=== PATIENT | female | born 1975 | race Caucasian/White ===

== ENCOUNTER 2022-02-07 09:57 | Outpatient (CLI) | payer BC, SELFPAY ==
--- NOTE | ~2022-02-07 | XR_ITS ---
EXAMINATION: XR hand LT min 3V, XR wrist LT min 3V DATE: 02/07/2022 10:39 INDICATION: Left hand and wrist pain TECHNIQUE: 1. Posteroanterior, ulnar deviation, oblique, and lateral views of the left wrist were obtained. 2. Dorsal palmar, oblique and lateral views of the left hand were obtained. COMPARISON: None. FINDINGS: 3 mm ulnar minus variance. No evident associated osteonecrosis of the lunate. Alignment of the hand a nd wrist is otherwise normal. No fracture identified. Small bone island at the capitate. Mild osteoar thritis at the triscaphe and second-fourth distal interphalangeal joints. No erosions to suggest infl ammatory arthritis. Soft tissues are unremarkable. IMPRESSION: 1. Mild polyarticular osteoarthritis at the first carpometacarpal and second-fourth distal interphala ngeal joints. Reviewed, dictated and finalized at location B. IMPRESSION: 1. Mild polyarticular osteoarthritis at the first carpometacarpal and second-fo urth distal interphalangeal joints.
--- NOTE | ~2022-02-07 | XR_ITS ---
EXAMINATION: XR hip LT min 2V DATE: 02/07/2022 10:39 INDICATION: Left hip pain. TECHNIQUE: 3 views of left hip were obtained. COMPARISON: None. FINDINGS: Bone alignment is normal. No fracture. There is mild left hip osteoarthritis. IMPRESSION: 1. Mild left hip osteoarthritis. Reviewed, dictated and finalized at location A.
--- NOTE | ~2022-02-07 | US_ITS ---
EXAMINATION: US transvaginal DATE: 02/07/2022 12:45 INDICATION: Excessive and frequent menstruation TECHNIQUE: Multiple transabdominal and endovaginal sonographic images of the pelvis were obtained. COMPARISON: None. FINDINGS: The uterus measures 9.1 x 7.3 x 5.3 cm. The endometrial complex measures 15 mm in thickness. There a re a few anechoic nabothian cysts measuring up to 8 mm in maximal diameter at the cervix. Multiple sm all echogenic calcifications, a few with associated shadowing along the at the margins of the endomet rial/endocervical canal at the lower uterine segment/upper cervix. No discrete associated soft tissue mass. The right ovary measures 2.8 x 2.0 x 1.9 cm. The left ovary measures 3.0 x 2.5 x 2.0 cm. 1.5 c m anechoic right ovarian cyst/follicle. Vascular flow identified in both ovaries on color Doppler. Th ere is no free fluid in the pelvis. IMPRESSION: 1. Endometrial complex measures 15 mm in thickness which would BE at the upper limits of normal durin g the secretory phase of the menstrual cycle. Correlate with menstrual cycle. 2. Multiple small dystrophic calcifications at the lower uterine segment/upper cervix which are of in determinate etiology. Correlate for history of prior IUD placement, uterine instrumentation or endome trial ablation. Reviewed, dictated and finalized at location B. IMPRESSION: 1. Endometrial complex measures 15 mm in thickness which would BE at the upper limits of normal during the secretory phase of the menstrual cycle. Correlate w ith menstrual cycle. 2. Multiple small dystrophic calcifications at the lower uterine segment/upper cervix which are of indeterminate etiology. Correlate for history of prior IUD placement, uterine instrumentation or endometrial ablation.
== END 2022-02-07 09:58 | disposition home or self-care (01) ==
PROVIDERS: PCP Physician Assistant; Visit Provider Physician Assistant
DX: N92.0 Excessive and frequent menstruation with regular cycle (principal); M18.12 Unilateral primary osteoarthritis of first carpometacarpal joint, left hand; M19.042 Primary osteoarthritis, left hand; M16.12 Unilateral primary osteoarthritis, left hip; M25.532 Pain in left wrist
CPT/HCPCS: 73110; 73130; 73502; 76830

== ENCOUNTER 2023-03-26 08:29 | Outpatient (CLI) | payer OTHER, SELFPAY ==
--- NOTE | ~2023-03-26 | US_ITS ---
Thyroid ultrasound. Clinical History: Nontoxic thyroid nodule Findings: Real-time sonography of the thyroid gland was performed. The right lobe measures 5.0 x 1.3 x 1.1 cm. The left lobe measures 5.2 x 1.2 x 1.4 cm. The isthmus is 3 mm in AP diameter. No thyroid nodule identified. Impression: No thyroid nodule seen.. Reviewed, dictated and finalized at location . Impression: No thyroid nodule seen..
--- NOTE | ~2023-03-26 | US_ITS ---
EXAMINATION: US pelvic complete w TV DATE: 03/26/2023 10:33 INDICATION: Pelvic and perineal pain Comparison:02/07/2022 TECHNIQUE: Multiple transabdominal and endovaginal sonographic images of the pelvis performed. FINDINGS: The uterus measures 10.3 x 5.4 x 6.2 cm. The endometrial complex measures 7.1 mm. The right ovary measures 2.8 x 2 x 1.9 cm and the left ovary measures 3 x 2.5 x 2 cm. There are smal l follicles in each ovary. Normal doppler signal in both ovaries. There is no free fluid in the pelvis. There are no abnormal masses seen on either side. IMPRESSION: 1. Mildly enlarged uterus. Otherwise, unremarkable pelvic ultrasound. Reviewed, dictated and finalized at location L.
--- NOTE | 2023-03-26 11:00 | NEURO_ITS ---
IMPRESSION: Patient reports a history of numbness and pain in both hands # Early changes suggestive of evolving, mild left Carpal Tunnel Syndrome. # Normal EMG # Clinical correlation recommended. Nerve Conduction Studies Anti Sensory Summary Table Stim Site NR Peak (ms) P-T Amp (?V) Site1 Site2 Delta-P (ms) Dist (cm) Ernesto (m/s) Left Median Anti Sensory (2-3nd Digit) Wrist 3.6 70.1 Wrist 2-3nd Digit 3.6 14.0 39 Wrist 3.7 158.6 Wrist 2-3nd Digit 3.6 14.0 39 Right Median Anti Sensory (2-3nd Digit) Wrist 3.3 27.5 Wrist 2-3nd Digit 3.3 14.0 42 Wrist 3.7 33.1 Wrist 2-3nd Digit 3.3 14.0 42 Left Radial Anti Sensory (Base 1st Digit) Wrist 1.7 100.8 Wrist Base 1st Digit 0.7 0.0 Right Radial Anti Sensory (Base 1st Digit) Wrist 1.7 79.8 Wrist Base 1st Digit 1.7 0.0 Left Ulnar Anti Sensory (5th Digit) Wrist 2.5 37.8 Wrist 5th Digit 2.5 14.0 56 Right Ulnar Anti Sensory (5th Digit) Wrist 2.6 77.5 Wrist 5th Digit 2.6 14.0 54 Motor Summary Table Stim Site NR Onset (ms) O-P Amp (mV) Site1 Site2 Delta-0 (ms) Dist (cm) Ernesto (m/s) Left Median Motor (Abd Poll Brev) Wrist 3.0 8.2 Elbow Wrist 3.6 20.0 56 Elbow 6.6 4.7 Right Median Motor (Abd Poll Brev) Wrist 3.0 10.7 Elbow Wrist 3.7 21.0 57 Elbow 6.7 10.1 Left Ulnar Motor (Abd Dig Minimi) Wrist 2.1 5.6 A Elbow Wrist 5.0 29.0 58 A Elbow 7.1 4.8 B Elbow Wrist 3.1 19.0 61 B Elbow 5.2 5.0 Right Ulnar Motor (Abd Dig Minimi) Wrist 2.1 6.8 A Elbow Wrist 4.7 27.0 57 A Elbow 6.8 5.9 B Elbow Wrist 3.1 18.0 58 B Elbow 5.2 5.9 F Wave Studies NR F-Lat (ms) L-R F-Lat (ms) Left Median (Mrkrs) (Abd Poll Brev) 24.38 1.36 Right Median (Mrkrs) (Abd Poll Brev) 25.73 1.36 Left Ulnar (Mrkrs) (Abd Dig Min) 24.77 0.08 Right Ulnar (Mrkrs) (Abd Dig Min) 24.68 0.08 EMG Side Muscle Nerve Root Ins Act Fibs Amp Dur Recrt Comment Right 1stDorInt Ulnar C8-T1 Nml Nml Nml Nml Nml Right Ext Indicis Radial (Post Int) C7-8 Nml Nml Nml Nml Nml Right Ext Digitorum Radial (Post Int) C7-8 Nml Nml Nml Nml Nml Right BrachioRad Radial C5-6 Nml Nml Nml Nml Nml Right PronatorTeres Median C6-7 Nml Nml Nml Nml Nml Right Abd Poll Brev Median C8-T1 Nml Nml Nml Nml Nml Left 1stDorInt Ulnar C8-T1 Nml Nml Nml Nml Nml Left Ext Indicis Radial (Post Int) C7-8 Nml Nml Nml Nml Nml Left Ext Digitorum Radial (Post Int) C7-8 Nml Nml Nml Nml Nml Left BrachioRad Radial C5-6 Nml Nml Nml Nml Nml Left PronatorTeres Median C6-7 Nml Nml Nml Nml Nml Left Abd Poll Brev Median C8-T1 Nml Nml Nml Nml Nml MTDD
== END 2023-03-26 08:30 | disposition home or self-care (01) ==
LOC: ANHNEURO 08:29
PROVIDERS: PCP Physician Assistant; Visit Provider Orthopaedic Surgery
DX: E04.1 Nontoxic single thyroid nodule (principal); R10.2 Pelvic and perineal pain; R20.0 Anesthesia of skin; N85.2 Hypertrophy of uterus
CPT/HCPCS: 76536; 76830; 76856; 95886; 95911

== ENCOUNTER 2023-05-01 08:39 | Outpatient (CLI) | payer OTHER, SELFPAY ==
--- NOTE | ~2023-05-01 | MR_ITS ---
MRI of the cervical spine Clinical History: C6 radiculopathy Technique: Axial T2-weighted and gradient images, and sagittal T1-weighted, T2-weighted, and STIR jarrell ges were acquired. Findings: No fracture or sublocation seen. There is straightening of the normal cervical lordosis. No suspicious bone marrow signal abnormality seen. At C2-C3, there is no disc bulge or herniation. No spinal canal stenosis, cord compression, or neural foraminal narrowing. At C3-C4, there is disc osteophyte complex. No spinal canal stenosis, cord compression, or neural for aminal narrowing. At C4-C5, there is minimal disc osteophyte complex. No spinal canal stenosis, cord compression, or ne ural foraminal narrowing. At C5-C6, there is disc osteophyte complex with minimal flattening the ventral cord. Bilateral neural foramina are preserved. At C6-C7, there is disc osteophyte complex with mild canal stenosis and flattening the ventral cord. Mild left neural foraminal narrowing. No abnormal signal seen in the spinal cord. Paravertebral soft tissues are unremarkable. Impression: Disc osteophyte complexes at C5-C6 and C6-C7, with mild flattening the ventral cord at these levels, most severe at C6-C7. Mild left neural foraminal narrowing at C6-C7. Reviewed, dictated and finalized at [facility]. Impression: Disc osteophyte complexes at C5-C6 and C6-C7, with mild flattening the ventral cord at these levels, most severe at C6-C7. Mild left neural foraminal narrowing at C6-C7.
[2023-05-01 09:27] LABS: Basophils Absolute Auto 0.1 K/mm3 (0.0-0.1); Basophils Percent Auto 1.2 % (0.2-1.2); Eosinophils Absolute Auto 0.1 K/mm3 (0-0.3); Eosinophils Percent Auto 2.7 % (0-4.4); Hematocrit 39.4 % (37.0-47.0); Hemoglobin 13.1 g/dL (12.0-15.0); Immature Granulocyte Absolute 0.01 K/mm3 (0.00-0.031); Immature Granulocyte Percent A 0.2 % (0-0.5); Lymphocytes Absolute Auto 1.86 K/mm3 (0.9-3.2); Lymphocytes Percent Auto 35.7 % (18.3-44.2); Mean Corpuscular HGB Conc 33.2 g/dl (32-36); Mean Corpuscular Hemoglobin 31.3 pg (26-34); Mean Corpuscular Volume 94.3 fl (80-100); Mean Platelet Volume 9.5 fl (7.4-10.4); Monocytes Absolute Auto 0.5 K/mm3 (0.1-0.6); Neutrophils Absolute Auto 2.7 K/mm3 (1.3-6.7); Neutrophils Percent Auto 51.2 % (45.5-73.1); Platelet Count Result 318 k/mm3 (150-375); Red Blood Count 4.18 M/mm3 (4.2-5.4); Red Cell Distribution Width 12.3 % (11.5-14.5); White Blood Count 5.2 K/mm3 (4.5-10.0)
[2023-05-01 09:44] LABS: CRP 0.5 mg/dL (<1.0)
[2023-05-01 10:08] LABS: Rheumatoid Factor < 12.0 IU/ML (<12)
[2023-05-01 11:02] LABS: Erythrocyte Sedimentation Rate 23 mm/hr (0-20)
[2023-05-04 21:45] LABS: Anti Cyclic Citrullinated Pept <16 Units (<20)
== END 2023-05-01 08:40 | disposition home or self-care (01) ==
LOC: ANHIMG 08:40
PROVIDERS: PCP Physician Assistant; Visit Provider Orthopaedic Surgery
DX: M79.641 Pain in right hand (principal); M79.642 Pain in left hand; M48.02 Spinal stenosis, cervical region; M25.78 Osteophyte, vertebrae
CPT/HCPCS: 36415; 72141; 85025; 85652; 86038; 86140; 86200; 86430

== ENCOUNTER 2023-09-21 13:11 | Outpatient (CLI) | payer OTHER, SELFPAY ==
--- NOTE | ~2023-09-21 | MMUS_ITS ---
EXAMINATION: MM diagnostic josiah BI w nadiya, US breast BI complete HISTORY: Left breast lump TECHNIQUE: Bilateral full field ML, MLO and CC and spot left 3-D tomosynthesis images were performed and synthetic 2-D images were generated. CAD analysis was submitted and interpreted. High resolution complete bilateral breast ultrasound examination including all 4 quadrants and subareolar areas was p erformed. COMPARISON: 11/15/2020 bilateral screening mammogram 11/15/2019 diagnostic right mammogram and right breast ultrasound examination 10/21/2019 bilateral screening mammogram Breast parenchymal composition: There is heterogeneously dense breast tissue, which may obscure small masses. FINDINGS: MAMMOGRAPHIC FINDINGS: Approximately 12.7 x 16.2 mm circumscribed opacity with halo is noted in the outer mid left breast, l ikely benign, probably a cyst. Additional masses are difficult to exclude due to the heterogeneously dense stroma of both breasts. B ilateral complete breast ultrasound examination was therefore performed. No architectural distortion, malignant calcification, skin thickening or retraction of either breast is evident. ULTRASOUND: Right breast: 6:00 1 cm from nipple: Circumscribed approximately 4 x 4.8 mm multilocular cystic lesion without inte rnal vascularity or posterior shadowing is noted, likely benign. Six-month follow-up targeted ultraso und imaging at this location is recommended. No suspicious mass or shadowing of the right breast is detected otherwise. Left breast: 3:00 1 cm from nipple: 1.5 cm simple cyst with through transmission posterior enhancement. 3:00 1 cm from nipple: 5 mm simple cyst 6:00 1 cm from nipple: 3.9 x 4.3 mm circumscribed sonolucency without internal vascularity, with thro ugh transmission, consistent with simple cyst 9:00 2 cm from nipple: There is a cluster of multiple cysts, largest approximately 8 mm maximal dimen otto. No suspicious mass or shadowing is detected. IMPRESSION: 1. Probable benign right 6:00 multilocular approximately 4 x 4.8 mm cystic lesion 2. Six-month targeted left breast ultrasound follow-up is recommended BI-RADS category 3, probably benign findings. Reviewed, dictated and finalized at location A. 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 Probable benign right 6:00 multilocular approximately 4 x 4.8 mm cystic lesi on 2. Six-month targeted left breast ultrasound follow-up is recommended BI-RADS category 3, probably benign findings.
== END 2023-09-21 13:12 | disposition home or self-care (01) ==
PROVIDERS: PCP Physician Assistant; Visit Provider Obstetrics & Gynecology
DX: N63.20 Unspecified lump in the left breast, unspecified quadrant (principal); R92.8 Other abnormal and inconclusive findings on diagnostic imaging of breast
CPT/HCPCS: 76641; 77062; 77066; G0279

== ENCOUNTER 2023-10-03 14:00 | Emergency (ER) | payer OTHER, SELFPAY ==
[2023-10-03 14:01] VITALS: BP 106/93; PULSE 136; RESP 16; TEMP 36.6; O2SAT 100
[2023-10-03 14:31] VITALS: BP 98/80; PULSE 109; RESP 15; RESP 18; O2SAT 98; O2SAT 99
--- NOTE | 2023-10-03 14:31 | PC.NURSE ---
Pt reports she has experienced nose bleeds intermitmently for 2 months. Denies history of HTN
[2023-10-03 14:34] LABS: Basophils Absolute Auto 0.1 K/mm3 (0.0-0.1); Basophils Percent Auto 0.8 % (0.2-1.2); Eosinophils Absolute Auto 0.1 K/mm3 (0-0.3); Eosinophils Percent Auto 0.8 % (0-4.4); Hematocrit 36.1 % (37.0-47.0); Hemoglobin 11.5 g/dL (12.0-15.0); Immature Granulocyte Absolute 0.02 K/mm3 (0.00-0.031); Immature Granulocyte Percent A 0.2 % (0-0.5); Lymphocytes Percent Auto 21.2 % (18.3-44.2); Mean Corpuscular HGB Conc 31.9 g/dl (32-36); Mean Corpuscular Hemoglobin 30.7 pg (26-34); Mean Corpuscular Volume 96.5 fl (80-100); Mean Platelet Volume 9.7 fl (7.4-10.4); Monocytes Absolute Auto 0.4 K/mm3 (0.1-0.6); Monocytes Percent Auto 4.7 % (2.6-8.5); Neutrophils Absolute Auto 6.5 K/mm3 (1.3-6.7); Neutrophils Percent Auto 72.3 % (45.5-73.1); Platelet Count Result 396 k/mm3 (150-375); Red Blood Count 3.74 M/mm3 (4.2-5.4); Red Cell Distribution Width 12.4 % (11.5-14.5)
--- NOTE | 2023-10-03 14:37 | ED.EPISTAXIS ---
HPI - Epistaxis General Chief complaint: Epistaxis Stated complaint: nose bleed Time Seen by Provider: 10/03/23 14:36 Source: patient and other (partner/boyfriend) Mode of arrival: ambulatory Limitations: no limitations History of Present Illness HPI Narrative: This is a 48 yo female who presents with epistaxis starting at 0930. He has essentially been constant. Reported initial significant blood loss. Clamp applied at 14:30 approximately. Epistaxis from bilateral nares but left > right. Not on anticoagulation. Never previously saw ENT. No trauma including no digital trauma. She does note it has been somewhat dry. Denies any other mucosal/gingival bleeding though she does have heavy menses with a hysterectomy scheduled for January. History of cleft palate s/p surgical repair. Related Data Home Medications Medication Instructions Recorded Confirmed meloxicam 15 mg tablet 15 mg PO DAILY 02/18/23 venlafaxine 150 mg 150 mg PO DAILY 02/18/23 capsule,extended release 24 hr Allergies Allergy/AdvReac Type Severity Reaction Status Date / Time erythromycin base Allergy Unknown Unknown Verified 09/29/23 09:06 Penicillins Allergy Unknown Unknown Verified 09/29/23 09:06 [facility] Past Medical History Medical History Anxiety Cleft lip and palate numerous surgeries Migraine Miscarriage Osteoporosis Vaginal delivery x2 Surgical History Surgical History H/O breast surgery History of placement of ear tubes History of tubal ligation 1995 Family History Family History Grandparent Diabetes mellitus Hypertension Heart disease Cerebrovascular accident Father Cerebrovascular accident Grandparent Uterine cancer Other Cervical cancer Social History Social History (Updated 09/29/23 @ 09:07 by Shi Moncada CMA) Smoking status: Never smoker Alcohol intake: current Alcohol use details: wine coolers Substance use: never Substance use type: does not use Lack of Transportation: No Lack of Food: Never True Current Housing: I Have Housing Concerned About Future Housing: No Difficulty Paying Gas/Electric Bills: No Difficulty Paying for Meds: No Currently Unemployed: No Education: High School Diploma/GED Difficulty w/ Childcare or Family Care: No Living arrangements: with family Gender identity (if verbalized by the patient): Female Sexual Orientation (if Verbalized by the Patient): Straight or Heterosexual Agree to blood products: Yes Exam Narrative: GENERAL: Well-appearing, well-nourished, and in no acute distress. HEAD: Normocephalic, atraumatic. EYES: Sclera non injected or icteric. ENT: Nares with epistaxis, most significant on the left. No uvula. Posterior oropharynx with clotted blood seen at superior aspect. NECK: Supple. No meningismus. CHEST: Speaking in full sentences. No respiratory distress. HEART: Tachycardic rate and rhythm. ABDOMEN: Soft, , nondistended, EXTREMITIES: Normal range of motion. No edema. SKIN: Warm, dry, no rash. NEURO: No focal deficits. Alert and oriented x3. PSYCH: Normal mood and affect. Course Vital Signs Vital signs: Vital Signs Temperature 97.9 F 10/03/23 14:01 Pulse Rate 136 H 10/03/23 14:01 Respiratory Rate 16 10/03/23 14:01 Blood Pressure 106/93 H 10/03/23 14:01 Pulse Oximetry 100 10/03/23 14:01 Temperature 98.0 F 10/03/23 16:31 Pulse Rate 99 10/03/23 16:31 Respiratory Rate 14 10/03/23 16:31 Blood Pressure 116/82 10/03/23 16:31 Pulse Oximetry 99 10/03/23 16:31 MDM - Epistaxis MDM Narrative Medical decision making narrative: Patient presents with epistaxis since 929. Patient had tried applying pressure. Presented to the ED and clamp applied aprpoximately 1430. Not on anticoagulation. No other mucosal/gingival ble
[2023-10-03 14:44] LABS: INR 1.1; Prothrombin Time 14.5 Seconds (11.1-14.7)
[2023-10-03 14:45] LABS: Partial Thromboplastin Time 26.2 SECONDS (22.3-36.8)
[2023-10-03 14:47] LABS: Alanine Aminotransferase 15 U/L (6-35); Albumin Level 4.2 g/dL (3.5-5.1); Alkaline Phosphatase 70 U/L (38-126); Anion Gap 11 mmol/L (8-16); Aspartate Amino Transferase 21 U/L (14-36); Bilirubin,Total 0.5 mg/dL (0.2-1.3); Blood Urea Nitrogen 18 mg/dL (7-17); Calcium 8.8 mg/dL (8.4-10.2); Carbon Dioxide 24 mmol/L (22-30); Chloride 104 mmol/L (98-107); Estimated CRCL calculation 63 ml/min; Estimated Glomerular Filt Rate > 60; Glucose 143 mg/dL (65-110); Potassium 3.9 mmol/L (3.4-5.0); Sodium 139 mmol/L (137-145)
[2023-10-03 15:01] VITALS: BP 103/77; PULSE 105; RESP 16; TEMP 36.7; O2SAT 98
[2023-10-03] MEDS: OXYMETAZOLINE HCL 0.05% NAS 15 ML BTL (*BKC) 1 SPRAY NASAL (15:42)
[2023-10-03 16:01] VITALS: BP 109/78; PULSE 91; RESP 16; O2SAT 97
[2023-10-03 16:31] VITALS: BP 116/82; PULSE 99; RESP 14; TEMP 36.7; O2SAT 99
--- NOTE | 2023-10-03 17:38 | PC.NURSE ---
Nasal bleeding stopped. Pt states ready to be discharged.
== END 2023-10-03 17:41 | disposition home or self-care (01) ==
PROVIDERS: Emergency Provider Student in an Organized Health Care Education/Training Program; PCP Physician Assistant
DX: R04.0 Epistaxis (principal); M81.0 Age-related osteoporosis without current pathological fracture; F41.9 Anxiety disorder, unspecified
CPT/HCPCS: 30901; 36415; 80053; 85025; 85610; 85730; 99283; A9270

== ENCOUNTER 2024-02-17 08:21 | Outpatient (CLI) | payer OTHER, SELFPAY | END 2024-02-17 08:22 | disposition home or self-care (01) | LOC: ANHSURGERY 08:24 | PROVIDERS: PCP Physician Assistant; Visit Provider Obstetrics & Gynecology | DX: Z01.818 Encounter for other preprocedural examination (principal); N92.0 Excessive and frequent menstruation with regular cycle | CPT/HCPCS: 36415; 86850; 86900; 86901 ==

== ENCOUNTER 2024-02-19 00:10 | Day surgery (SDC) | payer OTHER, SELFPAY ==
[2024-02-11 10:38] VITALS: BMI 25.9
--- NOTE | 2024-02-11 10:44 | PC.NURSE ---
Report to the Outpatient Waiting Room, entrance under the green pavilion located off [facility], at time 6:00 on date 02/19/24. Planned Procedure Time: 7:30. Time changes happen often and if your time is changed the preop area will call you the afternoon before. - You and your visitor will be asked to self-screen and do not enter if you have any COVID symptoms. - A mask is optional within the hospital at this time. Patients may have clear liquids (water, carbonated beverages, clear teas, apple juice) until 3 hours prior to surgery (4:30) with a maximum of 20 ounces. - No food from midnight until time of surgery Take the following medications with a SIP of water the morning of surgery: VENLAFAXINE DO NOT STOP ANY OF YOUR OTHER PRESCRIPTION MEDICATIONS PRIOR TO SURGERY ?EXCEPT THE FOLLOWING Medications to discontinue per physician: N/A Date to take last dose: N/A Please no make-up, nail vietnamese, hairspray, perfume, deodorant, or body powder the day of surgery. No jewelry (including any body piercings) or valuables the day of surgery, leave them at home. Please take a shower or bath the night before, or the morning of, surgery with an antibacterial soap. Wear comfortable, loose fitting clothing. - Jewelry must be removed prior to entering the operating room. Rings and piercings that are not removed may be cut off. - The hospital will not accept responsibility for valuables. - Please leave all valuables, including medications, at home the day of surgery. If you are going home after surgery, a licensed regional company truck driver must drive you home. - NO public transportation without another adult if you receive anesthesia. - We recommend that an adult stay with you for 24 hours following discharge. - We also recommend that you do not drive, make important decision, drink alcoholic beverages, or take any drugs that were not prescribed by your health care provider for at least 24 hours after your discharge time. Follow any additional instructions given to you from your surgeon. If you or anyone in your household have experienced Covid symptoms in the past week, please notify your surgeon or the nurse liaison at the phone number below for possible testing. Telephone instructions given to GREG MILES and asked if any additional questions and then verbalized understanding. Patient advised to call surgeon office or pre surgery nurse liaison [phone] if any additional questions.
--- NOTE | 2024-02-18 14:17 | P.HP_ITS ---
H&P: HPI History of Present Illness Date/Time: 02/18/24 14:17 Chief Complaint: Menorrhagia Narrative: Patient with history of menorrhagia. She states she has had it for a while and she does not want to take any medications. She has been given options of intrauterine device progesterone also endometrial ablation also hormonal options which she declines. She wants definitive treatment with hysterectomy. Pap s mear normal endometrial biopsy showed disordered proliferative endometrium. Pelvic ultrasound showed mildly enlarged uterus about 10 cm no fibroids identified. Review of Systems Review of Systems: All systems reviewed & are unremarkable except as noted in HPI and below Cardiovascular: Cardiovascular: Reports no additional cardiovascular complaints, Denies chest pain and Denies dyspnea Respiratory: Respiratory: Reports no additional respiratory complaints and Denies dyspnea Gastrointestinal: Gastrointestinal: Reports abdominal pain, Denies change in bowel habits, Denies diarrhea, Denies nausea and Denies vomiting Genitourinary: Genitourinary: Reports pelvic pain Musculoskeletal: Musculoskeletal: Reports back pain Integumentary/Breasts: Skin/Breast: Reports system reviewed and no additional complaints, except as docu Neurologic: Reports system reviewed and no additional complaints, except as documented PMF Past Medical History Medical History Anxiety Cleft lip and palate numerous surgeries Migraine Miscarriage Osteoporosis Vaginal delivery x2 Surgical History Surgical History H/O breast surgery History of placement of ear tubes History of tubal ligation 1995 Family History Family History Grandparent Diabetes mellitus Hypertension Heart disease Cerebrovascular accident Father Cerebrovascular accident Grandparent Uterine cancer Other Cervical cancer Social History Social History Social History: Caffeine-none Smoking status: Never smoker Alcohol intake: current Alcohol use details: RARE Substance use: never Substance use type: does not use Lack of Transportation: No Lack of Food: Never True Current Housing: I Have Housing Concerned About Future Housing: No Difficulty Paying Gas/Electric Bills: No Difficulty Paying for Meds: No Currently Unemployed: No Education: High School Diploma/GED Difficulty w/ Childcare or Family Care: No Living arrangements: with family Gender identity (if verbalized by the patient): Female Sexual Orientation (if Verbalized by the Patient): Straight or Heterosexual Spiritual care concerns: No Agree to blood products: Yes Meds Home Medications and Allergies Home Medications Medication Instructions Recorded Confirmed Type venlafaxine 150 mg 150 mg PO DAILY 02/18/23 02/11/24 History capsule,extended release 24 hr oxymetazoline 0.05 % nasal mist 2 spray intranasal Q8-10H PRN 10/03/23 02/11/24 Rx (Afrin (oxymetazoline)) nasal congestion 5 days #15 mL Allergies Allergy/AdvReac Type Severity Reaction Status Date / Time erythromycin base Allergy Unknown Rash Verified 02/11/24 10:37 Penicillins Allergy Unknown Rash Verified 02/11/24 10:37 Exam Const: Orientation/consciousness: oriented to person and oriented to place HENMT: Head: normal to inspection Eyes: General: appearance normal, both eyes and all related structures Resp: Effort & Inspection: normal respiratory effort Auscultation: clear to auscultation bilaterally Cardio: Rate: regular rate Rhythm: regular rhythm GI: Inspection: normal to inspection GI Palp: No Rebound tenderness present Neuro: General: oriented to person and oriented to place Cognition (Neuro): normal cognition Extrem: General: normal to inspection Psych: Appearance: grossly normal and well kempt Assessment and Plan Assessment and plan (1) Menorrhagia: Code(s): N92.0 - Excessive and frequent menstruation with regular cycle Status: Acute Assessment and Plan: Patient desires definitive treatment declines medical options. She has been informed of her options risks benefits of laparoscopy and risks benefits of minimally invasive surgery. She wants to proceed with robotic assisted laparoscopic hysterectomy with bilateral salpingo-oophorectomy.
[2024-02-19] VITALS (11 sets, daily range): BP systolic 92–115; BP diastolic 51–72; PULSE 72–103; RESP 12–18; TEMP 36.1–37.7; O2SAT 93–100
[2024-02-19] MEDS: ACETAMINOPHEN 500 MG TABLET 1000 MG PO (06:30)
[2024-02-19] MEDS: LACTATED RINGERS 1,000 ML 30 ML IV CONT ×2 (06:35→09:34)
--- NOTE | 2024-02-19 07:05 | P.PNAN_ITS ---
Anes - Initial Pre Proc Eval Procedure: Operation Date: 02/19/24 07:30 Proposed Procedures p Robotic Assisted Laparoscopic Total Vaginal Hysterectomy with Bilateral Salpingo-Oophorectomy - Heraclio Noriega MD Date/Time: 02/19/24 07:05 Surgeon: Heraclio Noriega MD Pre Op Diagnosis: menorrhagia Patient Data Age: 49 Gender: F Height: 1.55 m Weight: 62.2 kg Last Vital Signs Temp 98.4 F 02/19/24 06:41 Pulse 72 02/19/24 06:41 Resp 16 02/19/24 06:41 BP 115/60 02/19/24 06:41 Pulse Ox 100 02/19/24 06:41 O2 Del Method Room Air 02/19/24 06:41 Allergies Allergy/AdvReac Type Severity Reaction Status Date / Time erythromycin base Allergy Unknown Swelling Verified 02/19/24 06:16 of Lip/Tongue/Throat Penicillins Allergy Unknown Rash Verified 02/19/24 06:16 Home Medications Medication Instructions Recorded Confirmed Type venlafaxine 150 mg 150 mg PO DAILY 02/18/23 02/19/24 History capsule,extended release 24 hr oxymetazoline 0.05 % nasal mist 2 spray intranasal Q8-10H PRN 10/03/23 02/19/24 Rx (Afrin (oxymetazoline)) nasal congestion 5 days #15 mL Patient hx anesthesia problems: none Family hx anesthesia problems: none Results Review: All pre-operative results and documents have been reviewed as part of the pre- operative evaluation. [facility] Past Medical History Medical History Anxiety Cleft lip and palate numerous surgeries Migraine Miscarriage Osteoporosis Vaginal delivery x2 Surgical History Surgical History H/O breast surgery History of placement of ear tubes History of tubal ligation 1995 Family History Family History Grandparent Diabetes mellitus Hypertension Heart disease Cerebrovascular accident Father Cerebrovascular accident Grandparent Uterine cancer Other Cervical cancer Social History Social History Social History: Caffeine-none Smoking status: Never smoker Alcohol intake: current Alcohol use details: RARE Substance use: never Substance use type: does not use Lack of Transportation: No Lack of Food: Never True Current Housing: I Have Housing Concerned About Future Housing: No Difficulty Paying Gas/Electric Bills: No Difficulty Paying for Meds: No Currently Unemployed: No Education: High School Diploma/GED Difficulty w/ Childcare or Family Care: No Living arrangements: with family Gender identity (if verbalized by the patient): Female Sexual Orientation (if Verbalized by the Patient): Straight or Heterosexual Spiritual care concerns: No Agree to blood products: Yes Anes - Eval Final PreProcedure Day of Procedure 02/19/24 07:05 Patient weight: normal Heart: regular rate and rhythm Lungs: clear to auscultation Airway: Mallampati scale and special considerations (Upper partial, several teeth remaining once removed. ) Neurological: alert and oriented Last oral intake: >/= 8 hours ASA classification: I Emergent: no Anesthetic plan: proceed Anesthesia type and monitoring: general ETT and standard monitoring Results Review: All pre-operative results and documents have been reviewed as part of the pre- operative evaluation. Informed Consent: The patient's anesthetic plan and its attendant risks and benefits were discussed with the patient/family/POA. Questions were solicited and answers provided to the satisfaction of the patient/family/POA.
--- NOTE | 2024-02-19 07:21 | WPDHPUPDATE1 ---
History and Physical Update Update Date/Time: 02/19/24 07:21 History and Physical has been reviewed, including an updated exam of the patient. There are NO changes in the patient's condition. Risks, benefits, and alternatives have been discussed and questions answered. Patient agrees to proceed with procedure.
--- NOTE | 2024-02-19 07:22 | WPDHPUPDATE1 ---
History and Physical Update Update Date/Time: 02/19/24 07:22 History and Physical has been reviewed, including an updated exam of the patient. There are NO changes in the patient's condition. Risks, benefits, and alternatives have been discussed and questions answered. Patient agrees to proceed with procedure.
[2024-02-19] MEDS: KETOROLAC 15 MG/ML VIAL (*BKC) IV PUSH (07:24)
[2024-02-19] MEDS: ceFAZolin 2 GM/D5W 50 ML 2 GM/50 ML BAG IVPB (07:30)
[2024-02-19] MEDS: BUPivacaine HCL 0.5% 10 ML AMP 20 ML INFILTRATE (08:18)
--- NOTE | 2024-02-19 09:10 | PM.OP ---
Procedure Note - Brief Procedure Note - Brief Date of procedure: 02/19/24 menorrhagia Post-op diagnosis: Same Procedure performed: Robotic assisted laparoscopic hysterectomy with bilateral oophorectomy Surgeon: Heraclio Noriega MD Anesthesia: GETA Findings: normal uterus and normal ovaries bilaterally, fallopian tubes absent Estimated blood loss (mL): 50 IV fluids (mL): 1,300 Urine output (mL): 800 Drains: No Packing: No Pathology: Yes (uterus and cervix and right and left ovaries) Complications: No immediate complications Condition: Stable Disposition: PACU
--- NOTE | 2024-02-19 09:28 | P.OP_ITS ---
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 Findings Normal uterus, normal ovaries bilateral Description of Procedure After informed consent was obtained she was taken to the operating room and general endotracheal anesthesia was administered. She was placed in low lithotomy position. An exam under anesthesia was performed. Uterus mildly enlarged retroverted, no adnexal masses palpated. She was and prepped and draped in sterile fashion. Meza catheter placed in bladder. Attention was turned to the vagina speculum was inserted. Single-tooth tenaculum placed on anterior lip of the cervix the uterus sounded to 8 cm. The cervix was dilated to a 8 Briceño dilator. A size 8 uterine manipulator was inserted and secured. A size 3.0 colp cup was secured in the vagina. Then attention was turned to the abdomen with new sterile gloves. .25% marcaine injected subcutaneously. An incision was made horizontal 2 cm above the umbilicus. A Veress needle was inserted into the abdomen confirmation into the abdomen obtained with normal flow of fluid and normal peritoneal pressures. A Pneumoperitoneum of 15 mm per mercury was obtained. The 8 mm robotic port was inserted under laparoscopic visualization. Attention was turned to the left side of the abdomen. A small incision was made approximately 6 cm lateral to the port on the left side of the port. A size 8mm robotic port was inserted under laparoscopic visualization. Attention was turned to the right side of the abdomen and Marcaine was injected also as was on the left side subcutaneously incision was made and an 8 mm robotic port was inserted under laparoscopic visualization. Superior medial to this Marcaine was injected and the human resources office assistant port was inserted under laparoscopic visualization. She was placed in Trendelenburg position. The robotic arms were attached. Attention was turned to the surgery consult. The right round ligament was ligated with the vessel sealer and the anterior leaf of the broad ligament was dissected down to the vesicouterine peritoneum. The vesicouterine peritoneum was dissected.The right side of the bladder was dissected from the lower uterine segment and upper cervix. The right infundibulopelvic ligament was ligated with the vessel sealer. The broad ligament was further ligated from the uterus. The ascending uterine vessels were ligated. The uterine vessels were ligated. Attention was turned to the left round ligament which was ligated and the anterior leaf of the broad ligament was dissected anteriorly. The rest of the vesicouterine peritoneum was dissected off of the uterus. Once the bladder was dissected below the colp cup then the posterior leaf of the broad ligament was further dissected. The infundibulopelvic ligament on the left was ligated. The broad ligament was ligated from the uterus. The ascending uterine vessels were ligated The uterine arteries were ligated. The cardinal ligaments were ligated. This was done on both sides. An incision was made anterior colpotomy incision was made and this was carried around until the cervix was removed from the vagina. The uterus and cervix were removed through the vagina. There was an area of bleeding on the right side this was cauterized hemostasis was noted. The vaginal cuff was closed in a running fashion with 2 sutures of 0 V lock suture. Hemostasis was noted. The pelvis was irrigated. Hemostasis noted. Hemoderm was applied in the pelvis. The patient was taken out of Trendelenburg position. The pneumoperitoneum was released and the ports were removed. The skin incisions were closed in a subcuticular fashion with 4-0 Vicryl.. The patient was extubated in operating room. The sponge count was correct. Patient tolerated procedure well and was taken to recovery in stable condition. Estimated Blood Loss 50 IV Fluids 1,300 Urine Output 800 Drains No Packing No Pathology Yes (Uterus with cervix and right and left ovaries) Complications No immediate complications Condition Stable Disposition PACU [facility] Billing Surgery - Charge Forward: Surgery Billing
--- NOTE | 2024-02-19 10:45 | OBPPTRN ---
Patient transferred to post room #289 via stretcher. Support person present. Oriented to unit, room, information board, rooming in, admission packet and security measures. Patient verbalizes understanding.
[2024-02-19] MEDS: DEXTROSE 5%/0.45% SOD CHL 1,000 ML 125 ML IV CONT (10:56)
[2024-02-19] MEDS: HYDROcodone/acetaminophen (*CRX) 5-325 MG TABLET 1 TAB PO ×2 (11:00→12:31)
--- NOTE | 2024-02-19 12:31 | PM.GYNPNOP ---
[employer] - A/P Assessment and plan (1) Status post hysterectomy: Code(s): Z90.710 - Acquired absence of both cervix and uterus Status: Acute Assessment and Plan: Will adjust pain meds. Discussed surgery with her. Anticipate discharge tomorrow. Postoperative Procedures: Procedures Operation Date: 02/19/24 07:30 Actual Procedure Side Surgeon p Robotic Assisted Laparoscopic Total Vaginal Hysterectomy with Bilateral Oophorectomy Aleshia Noriega MD Time Spent With Patient Time: Total time spent is greater than 50% in coordination of care (as documented) at patient's floor/unit and/or counseling patient: Time with patient: less than 15 minutes [employer]- PN:Subj Post-Op Subjective Date/time seen: 02/19/24 12:31 Interval history: She states pain not controlled. No SOB or CP. Exam GI: Other: GI -incisions intact [employer] - PN: Obj Data Vital Signs Vital Signs: Vital Signs - 24 hr 02/19/24 06:41 02/19/24 09:34 02/19/24 10:00 Temperature 98.4 F 97.1 F L Pulse Rate 72 103 H 85 Respiratory Rate 16 12 14 Blood Pressure 115/60 92/59 L 99/60 L Pulse Oximetry 100 93 98 Oxygen Delivery Room Air Simple Face Mask Simple Face Mask Oxygen Flow Rate 15 15 02/19/24 10:10 02/19/24 10:15 02/19/24 10:30 Temperature 97.0 F L Pulse Rate 82 90 Respiratory Rate 14 16 Blood Pressure 104/65 100/63 Pulse Oximetry 95 95 Oxygen Delivery Room Air Room Air Room Air Oxygen Flow Rate 02/19/24 09:45 02/19/24 10:50 02/19/24 10:50 Temperature 98.1 F Pulse Rate 87 81 Respiratory Rate 14 16 Blood Pressure 111/63 102/59 L Pulse Oximetry 96 96 Oxygen Delivery Simple Face Mask Room Air Oxygen Flow Rate 15 Intake/Output Intake/Output: Intake & Output 02/16/24 02/17/24 02/18/24 02/19/24 23:59 23:59 23:59 23:59 Intake Total 1850 Output Total 1640 Balance 210 Meds/Results Medications: Active Medications Generic Name Dose Route Start Last Admin Trade Name Freq PRN Reason Stop Dose Admin Hydrocodone Bitart/Acetaminophen 1 tab 02/19/24 09:06 02/19/24 11:00 Hydrocodone/Acetaminophen (*Crx) 5-325 Mg Tablet PO 1 tab Q3H PRN Administration Pain Rated 5 or Less Hydrocodone Bitart/Acetaminophen 1 tab 02/19/24 09:06 Hydrocodone/Acetaminophen (*Crx) 10-325 Mg Tablet PO Q3H PRN Pain Rated 6 or Greater Dextrose/Sodium Chloride 1,000 mls @ 125 mls/hr 02/19/24 09:10 02/19/24 10:56 Dextrose 5% Sodium Chloride 0.45% IV CONT 125 mls/hr .Q8H JANUSZ Administration Ibuprofen 600 mg 02/19/24 09:06 Ibuprofen 600 Mg Tablet PO Q6H PRN Cramping Ketorolac Tromethamine 30 mg 02/19/24 09:06 Ketorolac 30 Mg/Ml Vial (*Bkc) IV PUSH 02/24/24 09:05 Q6H PRN Pain Rated 4-6 Morphine Sulfate 4 mg 02/19/24 09:06 Morphine Sulfate (*Crx) 4 Mg/Ml Inj IV PUSH Q4H PRN Severe breakthrough pain Naloxone HCl 0.1 mg 02/19/24 09:06 Naloxone Hcl 0.4 Mg/Ml Vial IV PUSH Q2M PRN Respiratory rate less than 10 Ondansetron HCl 4 mg 02/19/24 09:06 Ondansetron Inj 4 Mg/2 Ml Vial IV PUSH Q6H PRN Nausea And Vomiting Oxymetazoline HCl 2 spray 02/19/24 11:02 Oxymetazoline Hcl 0.05% Dani 15 Ml Btl (*Bkc) NASAL Q8HR PRN Congestion Simethicone 80 mg 02/19/24 12:00 Simethicone 80 Mg Tab.Chew PO TIDWM JANUSZ Venlafaxine HCl 150 mg 02/20/24 09:00 Venlafaxine Hcl Xr 75 Mg Cap.Er.24h PO DAILY JANUSZ
[2024-02-19] MEDS: SIMETHICONE 80 MG TAB.CHEW PO ×2 (12:32→15:51)
--- NOTE | 2024-02-19 12:34 | PM.OBDSVD ---
DS: Admitting Diagnosis Discharge Date 02/20/24 Admitting Diagnosis Menorrhagia DS: Discharge Diagnosis Discharge Diagnosis (1) Menorrhagia: Code(s): N92.0 - Excessive and frequent menstruation with regular cycle Status: Acute OB - DS: Summary Hospital Course Hospital Course: She was admitted for planned robotic hysterectomy with bilateral oophorectomy. She underwent the procedure, no complications. She did well on post op day 1 and was discharged to home on POD1. OB Procedures : None OB Procedures Intrapartum: Other OB Procedures: : None Peripartum Data Procedures: Procedures Operation Date: 02/19/24 07:30 Actual Procedure Side Surgeon p Robotic Assisted Laparoscopic Total Vaginal Hysterectomy with Bilateral Oophorectomy Bilateral Heraclio Noriega MD Time Spent with Patient Time attestation: Total time spent providing and/or coordinating discharge services: Exam Const: General: cooperative Orientation/consciousness: oriented to person, oriented to place and oriented to time HENMT: Face/Nose/Sinus: Normal external nose present Eyes: General: appearance normal, both eyes and all related structures Resp: Effort & Inspection: normal respiratory effort GI: Inspection: normal to inspection Skin: General skin exam: normal color Neuro: General: oriented to person, oriented to place and oriented to time Extrem: General: normal to inspection and no calf tenderness Psych: Appearance: grossly normal Mental Status: mental status grossly normal DS: Data Data Completed and Pending Pending studies at discharge: Pending at discharge 02/19/24 08:41 Surgical [PTH] Routine Discharge Plan Discharge Patient Disposition: Home, Self-Care Patient Instructions: Laparoscopic Hysterectomy (DC) Stand Alone Forms: General Discharge Information Follow-up/Referrals: Heraclio Noriega MD [Physician] - Keep Reg. Scheduled Appt. Discharge Medications: New hydrocodone-acetaminophen 5-325 mg Tablet 1 tablet PO Q3H PRN (Reason: Pain Rated 5 Or Less) Qty: 25 0RF No Action venlafaxine 150 mg capsule,extended release 24hr 150 mg PO DAILY Afrin (oxymetazoline) 0.05 % mist 2 spray intranasal Q8-10H PRN (Reason: nasal congestion) 5 Days Qty: 15 0RF
[2024-02-19] MEDS: KETOROLAC 30 MG/ML VIAL (*BKC) IV PUSH (13:41)
[2024-02-19] MEDS: HYDROcodone/acetaminophen (*CRX) 10-325 MG TABLET 1 TAB PO (15:40)
[2024-02-19] MEDS: MORPHINE SULFATE (*CRX) 4 MG/ML INJ IV PUSH (18:35)
[2024-02-20 00:05] VITALS: BP 113/62; PULSE 89; RESP 18; TEMP 37.1; O2SAT 99
[2024-02-20] MEDS: HYDROcodone/acetaminophen (*CRX) 10-325 MG TABLET 1 TAB PO (00:07)
[2024-02-20] MEDS: IBUPROFEN 600 MG TABLET PO ×2 (00:07→09:10)
[2024-02-20 05:03] VITALS: BP 114/68; PULSE 82; RESP 18; TEMP 36.7; O2SAT 100
[2024-02-20 06:40] VITALS: BP 88/52; PULSE 64; RESP 18; TEMP 37.2
[2024-02-20] MEDS: SIMETHICONE 80 MG TAB.CHEW PO (09:10)
[2024-02-20] MEDS: VENLAFAXINE HCL XR 75 MG CAP.ER.24H 150 MG PO (09:10)
== END 2024-02-20 10:20 | disposition home or self-care (01) ==
LOC: ANHSURGERY 05:56 → ANHOB2 12:40
PROVIDERS: PCP Physician Assistant; Visit Provider Obstetrics & Gynecology
PROC: (CPT 58552; principal; 2024-02-19 07:30)
DX: N92.0 Excessive and frequent menstruation with regular cycle (principal); N72 Inflammatory disease of cervix uteri; N88.8 Other specified noninflammatory disorders of cervix uteri; N80.03 Adenomyosis of the uterus; N83.11 Corpus luteum cyst of right ovary; F41.9 Anxiety disorder, unspecified
CPT/HCPCS: 58552; S2900; 88307; 99199; A9270; J0690; J1100; J1170; J1596; J1885; J2250; J2270; J2371; J2405; J2704; J3010; J7030; J7120

== ENCOUNTER 2024-08-11 10:24 | Outpatient (CLI) | payer OTHER, SELFPAY ==
--- NOTE | ~2024-08-11 | MMUS_ITS ---
EXAMINATION: MM diagnostic josiah BI w nadiya, US breast BI complete HISTORY: Solitary cyst of the left breast TECHNIQUE: Additional 3-D tomosynthesis images of the breasts were performed and synthetic 2-D images were generated. CAD analysis was submitted and interpreted. High resolution bilateral complete breas t ultrasound was performed. COMPARISON: Comparison to multiple prior studies sequentially, with oldest reviewed study dated 10/03. BREAST PARENCHYMAL COMPOSITION: Dense: The breasts are heterogeneously dense, which may obscure small masses FINDINGS: MAMMOGRAPHIC FINDINGS: There is persistent focal asymmetry in the lower inner quadrant of the left breast, although there is been no significant change from prior examination. There are no discrete masses, focal areas of arch itectural distortion or suspicious cluster of calcifications in either breast. ULTRASOUND: Complete US of all 4 quadrants of the breast/s and retroareolar region was reviewed. Right breast ultrasound: At 6:00, 1 cm from the nipple there is an oval hypoechoic mass measuring 5 m m with echogenic hilum, possibly small intramammary lymph node, likely benign. No other masses are id entified in the right breast. Left breast: At 9:00, 2 cm from the nipple there is an irregular shaped hypoechoic mass measuring 8 x 4 x 3 mm with heterogeneous internal echotexture, no significant posterior features and no internal vascularity. There is an area that could represent a small echogenic hilum., Possibly an intramammary lymph node, likely benign. IMPRESSION: 1. Probable benign bilateral breast masses. 2. Recommend 6 month follow-up limited bilateral breast ultrasound BI-RADS category 3, probably benign findings. Reviewed, dictated and finalized at location B. IMPRESSION: 1. Probable benign bilateral breast masses. 2. Recommend 6 month follow-up limited bilateral breast ultrasound BI-RADS category 3, probably benign findings.
== END 2024-08-11 10:25 | disposition home or self-care (01) ==
LOC: ANHIMG 10:25
PROVIDERS: PCP Physician Assistant; Visit Provider Surgery
DX: N60.02 Solitary cyst of left breast (principal); N60.19 Diffuse cystic mastopathy of unspecified breast
CPT/HCPCS: 76641; 77062; 77066; G0279

== ENCOUNTER 2025-02-10 10:17 | Outpatient (CLI) | payer OTHER, SELFPAY ==
--- NOTE | ~2025-02-10 | MMUS_ITS ---
EXAMINATION: US breast BI complete, MM diagnostic josiah BI w nadiya HISTORY: Follow-up left breast masses. TECHNIQUE: Additional 3-D tomosynthesis images of the breasts were performed and synthetic 2-D images were generated. CAD analysis was submitted and interpreted. High resolution bilateral complete breas t ultrasound was performed. COMPARISON: Comparison to multiple prior studies sequentially, with oldest reviewed study dated 10/03. BREAST PARENCHYMAL COMPOSITION: Not dense: There are scattered areas of fibroglandular density. FINDINGS: MAMMOGRAPHIC FINDINGS: There are bilateral breast asymmetries which are less apparent with spot compression views. No suspic ious calcifications or architectural distortion. ULTRASOUND: Complete US of all 4 quadrants of the breast/s and retroareolar region was reviewed. Right breast: At 6:00, 1 cm from the nipple there is an oval hypoechoic mass measuring 5 x 5 x 3 mm w ithout significant change from prior examination, likely benign. No internal vascularity or posterior features. Left breast: At 2:00, 2 cm from the nipple there is a 3 mm cyst. At 9:00, 2 cm from the nipple there is an irregular shaped predominantly hypoechoic mass with areas of central echogenicity, possibly a s mall cluster of intramammary lymph nodes. No significant change from prior examination. IMPRESSION: 1. Stable likely benign bilateral breast masses. 2. Given one year of interval stability, recommend 12 month followup bilateral mammogram and Limited bilateral breast ultrasound BI-RADS category 3, probably benign findings. Reviewed, dictated and finalized at location A. IMPRESSION: 1. Stable likely benign bilateral breast masses. 2. Given one year of interval stability, recommend 12 month followup bilateral mammogram and Limited bilateral breast ultrasound BI-RADS category 3, probably benign findings.
--- OUTSIDE RECORDS SUMMARY | 2025-02-10 10:53 | XMS_ITS | Data Portability ---
Author Organization [facility] Galen Pinzon Address [address] [place] [address] Care Team Providers Care Caser Name Role Phone YESSENIACANDIDA Primary Care Provider Assessment Encounter Date Assessment Date Assessment LastModified by Organization Details LastModified Time 11/26/2023 11/26/2023 f/u one month for colonoscopy, refills. depression f/u Not available 11/26/2023 13:38:59 12/30/2023 12/30/2023 mammogram order given by pumper gauger apprentice Not available 12/30/2023 10:39:05 Plan of Treatment Reminders Order Date Submit Date Provider Last Modified By Organization Details Last Modified Time Details Appointments None recorded. Lab pro BNP (pro B-type natriuretic peptide), serum or plasma 2023 SANTIAGO DIETRICH, [address], [address], [place], [address], 11:17:12 CBC w/ auto diff 2023 024 [facility] [address], [address], [place], [address], 22:08:05 iron + total iron-bindin g capacity (TIBC), serum 2023 024 [facility], [address] [facility] [address], [place], [address], 4 11:17:13 CMP, serum or plasma 2023 024 SANTIAGO DIETRICH, [address], [address], [place], [address], 4 22:08:03 CMP, serum or plasma 2023 024 SANTIAGO LEWISRP, [address], [address], [place], [address], 4 21:08:12 CBC w/ auto diff 2023 024 SANTIAGO DIETRICH, [address], [address], [place], [address], 4 21:08:13 lipid panel, serum 2023 024 SANTIAGO DIETRICH, [address], [address], [place], [address], 4 21:08:12 HbA1c (hemoglobin A1c), blood 2023 024 SANTIAGO DIETRICH, [address], [address], [place], [address], 4 12:12:14 TSH + free T4, serum 2023 024 SANTIAGO DIETRICH, [address], [address], [place], [address], 4 12:12:13 pathology study - 1 small mole on right chest near axilla w/o concerning features 2022 023 SANTIAGO DIETRICH, [address], [address], [place], [address], 3 11:13:28 Referral cardiologis t referral 2023 024 [email or web address] Tony Rivera DO, [address], [address], [place], [address], 4 12:44:27 firer retort referral 2023 024 [email or web address] Ilda Dao DPM, [address], [address], [place], [address], 4 09:55:31 gastroenter ologist referral 2023 024 SANTIAGO Branch MD, [address] [place], [address], 4 13:45:22 Procedures None recorded. Surgeries None recorded. Imaging US, abdomen, complete 2023 024 [email or web address] [facility] (Imaging), [address], [place], [address], 4 07:51:57 Medication Orders doxycycline monohydrate 100 mg capsule 2023 024 [id number], [address] [facility] [address] [place] [address], [id number], 4 15:58:55 mometasone 0.1 % topical cream 2023 024 [facility] | [id number], [address] [facility] [address] [place] [address], [id number], 4 10:41:25 Miralax 17 gram/dose oral powder 2023 024 [email or web address] [facility] #76219, [address] [facility] [address] [place] [address], [id number], 4 09:21:45 silver sulfadiazin e 1 % topical cream 2023 024 uamendy [facility] #36064, [address] [place] [address], [id number], 4 09:09:48 doxycycline hyclate 100 mg capsule 2023 024 kim [facility] #61112, [address] [place] [address], [id number], 4 09:04:48 pimecrolimu s 1 % topical cream 2023 024 [facility] #52518, [address] [place] [address], [id number], 4 13:21:39 venlafaxine ER 37.5 mg capsule,ext ended release 24 hr 2023 [facility] #[id number], [address] [place] [address], [id number], 13:25:16 Patient TargetsNo targets recorded. Patient Instructions Encounter Date Encounter Id Patient Instructions Last Modified By Organization Details Last Modified Time 03/17/2024 [id number] A healthy lifestyle: care instructions [email or web address] Not available 03/21/2024 08:31:14 08/18/2024 [id number] rhythm strip, EKG* [email or web address] Not available 08/18/2024 11:59:35 Reason for Referral Trial Consultant Referral for Screening for malignant neoplasm of colon Referring Physician: Candida Samuels Radiology Ct Technologist, Encounter Date: 12/30/2023 Merchandise Appraiser Referral for Pain in left foot Referring Physician: [facility], Encounter Date: 03/17/2024 Vortex Operator Referral for At ypical chest pain Referring Physician: Candida Samuels Radiology Ct Technologist, Encounter Date: 08/18/2024 Results Created Date Observation Date Name Description Value Unit Range Abnormal Flag Note LastModifiedBy Organization Detail LastModifiedTime 04/30/2005/07/2023 PATHO LOGY REPOR T . Commen t Mater ial submi tted: . chest - RIGHT CHEST . Modif iers: right Not Available [facility] ([facility]) [address] [facility], [place], [address], 05/07/2023 11:13:28 04/30/20 23 05/07/2023 PATHO LOGY REPOR T . Commen t Clini mal histo ry: . DISOR ASHLYN OF THE SKIN AND SUBCU TANEO US TISSU E, UNSPE CIFIE D Not Available [facility] ([facility]) [address] [facility], [place], [address], 05/07/2023 11:13:28 04/30/20 23 05/07/2023 PATHO LOGY REPOR T . Commen t Diagn osis: COMPO UND NEVUS ; IRRIT ATED. GEA 05/06 1152 Local Not Available [facility] ([facility]) [address] [facility], [place], [address], 05/07/2023 11:13:28 04/30/2005/07/2023 PATHO LOGY REPOR T . Commen t Aisha evangelista d: . Vu chang MD, [place] duval holog ist Not Available [facility] ([facility]) [address] [facility], [place], [address], 05/07/2023 11:13:28 04/30/20 23 05/07/2023 PATHO LOGY REPOR T . Commen t Gross descr iptio n: . 1 Conta iner, forma reza-maxim illed , label ed with patie nt ident ifica tion. RIGHT CHEST : 1 SHAVE BIOPS Y OF MEYER SKIN MEASU RING 0.4 X 0.3 X 0.3 CM. ON THE SURFA CE IS A RAISE D MEYER 0.4 CM LESIO N. THE LESIO N APPEA RS TO INVOL VE THE TRACEY N. THE SURGI MAL TRACEY N IS INKED BLUE. THE SPECI MEN IS BISEC MARISA. IT IS SUBMI TTED ENTIR GORDON IN CASSE TTE(S ) A1. SHEILA/Niall MILTON 05/04 0944 Local Not Available [facility] ([facility]) [address] [place], [address], 05/07/2023 11:13:28 04/30/20 23 05/07/2023 PATHO LOGY REPOR T . Commen t Patho logis t provi ded ICD-1 0: D22.5 Not Available [facility] ([facility]) [address] [place], [address], 05/07/2023 11:13:28 04/30/20 23 05/07/2023 PATHO LOGY REPOR T . Commen t CPT . 48089 1 Not Available [facility] ([facility]) [address] [place], [address], 05/07/2023 11:13:28 12/30/19 24 12/30/2023 LIPID PANEL cholesterol, total 188 mg/dL 100-19 9 Not Available [facility] Department [address] [place], [address], 12/30/2023 21:08:12 12/30/19 24 12/30/2023 LIPID PANEL triglyceride s 82 mg/dL 0-149 Not Available [facility] Department [address] [place], [address], 12/30/2023 21:08:12 12/30/19 24 12/30/2023 LIPID PANEL HDL cholesterol 48 mg/dL 40-999 Not Available [facility] Department [address] [place], [address], 12/30/2023 21:08:12 12/30/19 24 12/30/2023 LIPID PANEL VLDL cholesterol mal 16 mg/dL 5-40 Not Available [facility] Department [address] [place], [address], 12/30/2023 21:08:12 12/30/19 24 12/30/2023 LIPID PANEL LDL chol calc (nih) 135 mg/dL 0-99 above high normal Not Available [facility] Department [address] [place] [address], [address], 12/30/2023 21:08:12 12/30/19 24 12/30/2023 COMP. METAB OLIC PANEL (14) glucose 93 mg/dL 70-99 Not Available [facility] Department [address] [place], [address], 12/30/2023 21:08:12 12/30/19 24 12/30/2023 COMP. METAB OLIC PANEL (14) BUN 9 mg/dL 6-24 Not Available [facility] Department [address] [place] [address], [address], 12/30/2023 21:08:12 12/30/19 24 12/30/2023 COMP. METAB OLIC PANEL (14) creatinine 0.84 mg/dL 0.76-1 .27 Not Available [facility] Department [address] [place] [address], [address], 12/30/2023 21:08:12 12/30/19 24 12/30/2023 COMP. METAB OLIC PANEL (14) eGFR 85 >=60 Units for eGFR value s are mL/mi n/1.7 3 The eGFR Calcu latio n has not been valid ated for patie nts under the age of 18. If test resul ts are displ ayed for a patie nt under the age of 18, disre wandy that value . Not Available [facility] Department [address] [place] [address], [address], 12/30/2023 21:08:12 12/30/19 24 12/30/2023 COMP. METAB OLIC PANEL (14) BUN/creatini ne ratio 11 9-23 Not Available [facility] Department [address] [place] [address], [address], 12/30/2023 21:08:12 12/30/19 24 12/30/2023 COMP. METAB OLIC PANEL (14) sodium 140 mmol/ L 134-14 4 Not Available [facility] Department [address] [place] [address], [address], 12/30/2023 21:08:12 12/30/19 24 12/30/2023 COMP. METAB OLIC PANEL (14) potassium 3.9 mmol/ L 3.5-5. 2 Not Available [facility] Department [address] [place] [address], [address], 12/30/2023 21:08:12 12/30/19 24 12/30/2023 COMP. METAB OLIC PANEL (14) chloride 104 mmol/ L 96-106 Not Available [facility] Department [address] [place] [address], [address], 12/30/2023 21:08:12 12/30/19 24 12/30/2023 COMP. METAB OLIC PANEL (14) carbon dioxide, total 24 mmol/ L 20-29 Not Available [facility] Department [address] [place] [address], [address], 12/30/2023 21:08:12 12/30/19 24 12/30/2023 COMP. METAB OLIC PANEL (14) calcium 9.3 mg/dL 8.7-10 .2 Not Available [facility] Department [address] [place] [address], [address], 12/30/2023 21:08:12 12/30/19 24 12/30/2023 COMP. METAB OLIC PANEL (14) protein, total 7.0 g/dL 6.0-8. 5 Not Available [facility] Department [address] [place], [address], 12/30/2023 21:08:12 12/30/19 24 12/30/2023 COMP. METAB OLIC PANEL (14) albumin 4.1 g/dL 3.9-4. 9 Not Available [facility] Department [address] [place], [address], 12/30/2023 21:08:12 12/30/19 24 12/30/2023 COMP. METAB OLIC PANEL (14) globulin, total 2.9 g/dL 1.5-4. 5 Not Available [facility] Department [address] [place], [address], 12/30/2023 21:08:12 12/30/19 24 12/30/2023 COMP. METAB OLIC PANEL (14) A/G ratio 1.0 1.2-2. 2 below low normal Not Available [facility] Department [address] [place], [address], 12/30/2023 21:08:12 12/30/19 24 12/30/2023 COMP. METAB OLIC PANEL (14) bilirubin, total 0.2 mg/dL 0.0-1. 2 Not Available [facility] Department [address] [place], [address], 12/30/2023 21:08:12 12/30/19 24 12/30/2023 COMP. METAB OLIC PANEL (14) alkaline phosphatase 74 IU/L 44-121 Not Available [facility] Department [address] [place], [address], 12/30/2023 21:08:12 12/30/19 24 12/30/2023 COMP. METAB OLIC PANEL (14) AST (SGOT) 12 IU/L 0-40 Not Available [facility] Department [address] [place], [address], 12/30/2023 21:08:12 12/30/19 24 12/30/2023 COMP. METAB OLIC PANEL (14) ALT (SGPT) 11 IU/L 0-32 Not Available [facility] Department [address] [place], [address], 12/30/2023 21:08:12 12/30/19 24 12/30/2023 CBC WITH DIFFE RENTI AL/PL ATELE T WBC 5.6 x10e3 /uL 3.4-10 .8 Not Available [facility] Department [address] [place], [address], 12/30/2023 21:08:13 12/30/19 24 12/30/2023 CBC WITH DIFFE RENTI AL/PL ATELE T RBC 3.86 x10e6 /uL 3.77-5 .28 Not Available [facility] Department [address] [place], [address], 12/30/2023 21:08:13 12/30/19 24 12/30/2023 CBC WITH DIFFE RENTI AL/PL ATELE T hemoglobin 11.4 g/dL 11.1-1 5.9 Not Available [facility] Department [address] [place], [address], 12/30/2023 21:08:13 12/30/19 24 12/30/2023 CBC WITH DIFFE RENTI AL/PL ATELE T hematocrit 36.1 % 34.0-4 6.6 Not Available [facility] Department [address] [place], [address], 12/30/2023 21:08:13 12/30/19 24 12/30/2023 CBC WITH DIFFE RENTI AL/PL ATELE T MCV 94 fL 79-97 Not Available [facility] Department [address] [place], [address], 12/30/2023 21:08:13 12/30/19 24 12/30/2023 CBC WITH DIFFE RENTI AL/PL ATELE T MCH 29.5 pg 26.6-3 3.0 Not Available [facility] Department [address] [place], [address], 12/30/2023 21:08:13 12/30/19 24 12/30/2023 CBC WITH DIFFE RENTI AL/PL ATELE T MCHC 31.6 g/dL 31.5-3 5.7 Not Available [facility] Department [address] [place], [address], 12/30/2023 21:08:13 12/30/19 24 12/30/2023 CBC WITH DIFFE RENTI AL/PL ATELE T RDW 12.9 % 11.5-1 4.5 Not Available [facility] Department [address] [place], [address], 12/30/2023 21:08:13 12/30/19 24 12/30/2023 CBC WITH DIFFE RENTI AL/PL ATELE T platelets 346 x10e3 /uL 150-45 0 Not Available [facility] Department [address] [place], [address], 12/30/2023 21:08:13 12/30/19 24 12/30/2023 CBC WITH DIFFE RENTI AL/PL ATELE T neutrophils 47 % notest b. Not Available [facility] Department [address] [place], [address], 12/30/2023 21:08:13 12/30/19 24 12/30/2023 CBC WITH DIFFE RENTI AL/PL ATELE T lymphs 37 % notest b. Not Available [facility] Department [address] [place], [address], 12/30/2023 21:08:13 12/30/19 24 12/30/2023 CBC WITH DIFFE RENTI AL/PL ATELE T monocytes 10 % notest b. Not Available [facility] Department [address] [place], [address], 12/30/2023 21:08:13 12/30/19 24 12/30/2023 CBC WITH DIFFE RENTI AL/PL ATELE T eos 4 % notest b. Not Available [facility] Department [address] [place], [address], 12/30/2023 21:08:13 12/30/19 24 12/30/2023 CBC WITH DIFFE RENTI AL/PL ATELE T basos 1 % notest b. Not Available [facility] Department [address] [place], [address], 12/30/2023 21:08:13 12/30/19 24 12/30/2023 CBC WITH DIFFE RENTI AL/PL ATELE T neutrophils (absolute) 2.6 x10e3 /uL 1.4-7. 0 Not Available [facility] Department [address] [place], [address], 12/30/2023 21:08:13 12/30/19 24 12/30/2023 CBC WITH DIFFE RENTI AL/PL ATELE T lymphs (absolute) 2.1 x10e3 /uL 0.7-3. 1 Not Available [facility] Department [address] [place], [address], 12/30/2023 21:08:13 12/30/19 24 12/30/2023 CBC WITH DIFFE RENTI AL/PL ATELE T monocytes(ab solute) 0.6 x10e3 /uL 0.1-0. 9 Not Available [facility] Department [address] [place], [address], 12/30/2023 21:08:13 12/30/19 24 12/30/2023 CBC WITH DIFFE RENTI AL/PL ATELE T eos (absolute) 0.2 x10e3 /uL 0.0-0. 4 Not Available [facility] Department [address] [place] [address], [address], 12/30/2023 21:08:13 12/30/19 24 12/30/2023 CBC WITH DIFFE RENTI AL/PL ATELE T baso (absolute) 0.1 x10e3 /uL 0.0-0. 2 Not Available [facility] Department [address] [place] [address], [address], 12/30/2023 21:08:13 12/30/19 24 12/30/2023 CBC WITH DIFFE RENTI AL/PL ATELE T immature granulocytes 0.2 % notest b. Not Available [facility] Department [address] [place] [address], [address], 12/30/2023 21:08:13 12/30/19 24 12/30/2023 CBC WITH DIFFE RENTI AL/PL ATELE T immature grans (abs) 0.0 x10e3 /uL 0.0-0. 1 Not Available [facility] Department [address] [place] [address], [address], 12/30/2023 21:08:13 12/30/19 24 12/30/2023 CBC WITH DIFFE RENTI AL/PL ATELE T NRBC 0 % 0-0 Not Available [facility] Department [address] [place] [address], [address], 12/30/2023 21:08:13 12/30/19 24 12/31/2023 TSH+F REE T4 TSH 2.060 uIU/m L 0.450- 4.500 Not Available [facility] ([facility]) [address] [facility], [place], [address], 12/31/2023 12:12:13 12/30/19 24 12/31/2023 TSH+F REE T4 T4,free(dire ct) 1.05 NG/dL 0.82-1 .77 Not Available [facility] ([facility]) [address] [facility], [place], [address], 12/31/2023 12:12:13 12/30/19 24 12/31/2023 HEMOG LOBIN A1C hemoglobin A1C 5.5 % 4.8-5. 6 Predi abete s: 5.7 - 6.4 Diabe claudia: >6.4 Glyce kathy contr ol for adult s with diabe claudia: <7.0 Not Available [facility] ([facility]) [address] [facility], [place], [address], 12/31/2023 12:12:14 08/18/2008/18/2024 COMP. METAB OLIC PANEL (14) glucose 95 mg/dL 70-99 Not Available [facility] Department [address] [place] [address], [address], 08/18/2024 22:08:03 08/18/20 24 08/18/2024 COMP. METAB OLIC PANEL (14) BUN 12 mg/dL 6-24 Not Available [facility] Department [address] [place], [address], 08/18/2024 22:08:03 08/18/20 24 08/18/2024 COMP. METAB OLIC PANEL (14) creatinine 0.88 mg/dL 0.76-1 .27 Not Available [facility] Department [address] [place] [address], [address], 08/18/2024 22:08:03 08/18/20 24 08/18/2024 COMP. METAB OLIC PANEL (14) eGFR 80 >=60 Units for eGFR value s are mL/mi n/1.7 3 The eGFR Calcu latio n has not been valid ated for patie nts under the age of 18. If test resul ts are displ ayed for a patie nt under the age of 18, disre wandy that value . Not Available [facility] Department [address] [place] [address], [address], 08/18/2024 22:08:03 08/18/20 24 08/18/2024 COMP. METAB OLIC PANEL (14) BUN/creatini ne ratio 13 9-23 Not Available [facility] Department [address] [place], [address], 08/18/2024 22:08:03 08/18/20 24 08/18/2024 COMP. METAB OLIC PANEL (14) sodium 141 mmol/ L 134-14 4 Not Available [facility] Department [address] [place] [address], [address], 08/18/2024 22:08:03 08/18/20 24 08/18/2024 COMP. METAB OLIC PANEL (14) potassium 4.2 mmol/ L 3.5-5. 2 Not Available [facility] Department [address] [place] [address], [address], 08/18/2024 22:08:03 08/18/20 24 08/18/2024 COMP. METAB OLIC PANEL (14) chloride 104 mmol/ L 96-106 Not Available [facility] Department [address] [place], [address], 08/18/2024 22:08:03 08/18/20 24 08/18/2024 COMP. METAB OLIC PANEL (14) carbon dioxide, total 27 mmol/ L 20-29 Not Available [facility] Department [address] [place] [address], [address], 08/18/2024 22:08:03 08/18/20 24 08/18/2024 COMP. METAB OLIC PANEL (14) calcium 9.8 mg/dL 8.7-10 .2 Not Available [facility] Department [address] [place] [address], [address], 08/18/2024 22:08:03 08/18/20 24 08/18/2024 COMP. METAB OLIC PANEL (14) protein, total 7.3 g/dL 6.0-8. 5 Not Available [facility] Department [address] [place], [address], 08/18/2024 22:08:03 08/18/20 24 08/18/2024 COMP. METAB OLIC PANEL (14) albumin 4.2 g/dL 3.8-4. 9 Not Available [facility] Department [address] [place], [address], 08/18/2024 22:08:03 08/18/20 24 08/18/2024 COMP. METAB OLIC PANEL (14) globulin, total 3.1 g/dL 1.5-4. 5 Not Available [facility] Department [address] [place], [address], 08/18/2024 22:08:03 08/18/20 24 08/18/2024 COMP. METAB OLIC PANEL (14) A/G ratio 1.4 1.2-2. 2 Not Available [facility] Department [address] [place], [address], 08/18/2024 22:08:03 08/18/20 24 08/18/2024 COMP. METAB OLIC PANEL (14) bilirubin, total 0.4 mg/dL 0.0-1. 2 Not Available [facility] Department [address] [place], [address], 08/18/2024 22:08:03 08/18/20 24 08/18/2024 COMP. METAB OLIC PANEL (14) alkaline phosphatase 105 IU/L 44-121 Not Available [facility] Department [address] [place], [address], 08/18/2024 22:08:03 08/18/20 24 08/18/2024 COMP. METAB OLIC PANEL (14) AST (SGOT) 14 IU/L 0-40 Not Available [facility] Department [address] [place], [address], 08/18/2024 22:08:03 08/18/2008/18/2024 COMP. METAB OLIC PANEL (14) ALT (SGPT) 10 IU/L 0-32 Not Available [facility] Department [address] [place], [address], 08/18/2024 22:08:03 08/18/20 24 08/18/2024 CBC WITH DIFFE RENTI AL/PL ATELE T WBC 5.2 x10e3 /uL 3.4-10 .8 Not Available [facility] Department [address] [place], [address], 08/18/2024 22:08:05 08/18/2008/18/2024 CBC WITH DIFFE RENTI AL/PL ATELE T RBC 4.11 x10e6 /uL 3.77-5 .28 Not Available [facility] Department [address] [place], [address], 08/18/2024 22:08:05 08/18/20 24 08/18/2024 CBC WITH DIFFE RENTI AL/PL ATELE T hemoglobin 12.7 g/dL 11.1-1 5.9 Not Available [facility] Department [address] [place], [address], 08/18/2024 22:08:05 08/18/20 24 08/18/2024 CBC WITH DIFFE RENTI AL/PL ATELE T hematocrit 38.6 % 34.0-4 6.6 Not Available [facility] Department [address] [place], [address], 08/18/2024 22:08:05 08/18/2008/18/2024 CBC WITH DIFFE RENTI AL/PL ATELE T MCV 94 fL 79-97 Not Available [facility] Department [address] [place], [address], 08/18/2024 22:08:05 08/18/20 24 08/18/2024 CBC WITH DIFFE RENTI AL/PL ATELE T MCH 30.9 pg 26.6-3 3.0 Not Available [facility] Department [address] [place], [address], 08/18/2024 22:08:05 08/18/20 24 08/18/2024 CBC WITH DIFFE RENTI AL/PL ATELE T MCHC 32.9 g/dL 31.5-3 5.7 Not Available [facility] Department [address] [place], [address], 08/18/2024 22:08:05 08/18/20 24 08/18/2024 CBC WITH DIFFE RENTI AL/PL ATELE T RDW 12.5 % 11.5-1 4.5 Not Available [facility] Department [address] [place], [address], 08/18/2024 22:08:05 08/18/20 24 08/18/2024 CBC WITH DIFFE RENTI AL/PL ATELE T platelets 361 x10e3 /uL 150-45 0 Not Available [facility] Department [address] [place], [address], 08/18/2024 22:08:05 08/18/20 24 08/18/2024 CBC WITH DIFFE RENTI AL/PL ATELE T neutrophils 61 % notest b. Not Available [facility] Department [address] [place], [address], 08/18/2024 22:08:05 08/18/20 24 08/18/2024 CBC WITH DIFFE RENTI AL/PL ATELE T lymphs 28 % notest b. Not Available [facility] Department [address] [place], [address], 08/18/2024 22:08:05 08/18/20 24 08/18/2024 CBC WITH DIFFE RENTI AL/PL ATELE T monocytes 8 % notest b. Not Available [facility] Department [address] [place], [address], 08/18/2024 22:08:05 08/18/20 24 08/18/2024 CBC WITH DIFFE RENTI AL/PL ATELE T eos 2 % notest b. Not Available [facility] Department [address] [place], [address], 08/18/2024 22:08:05 08/18/2008/18/2024 CBC WITH DIFFE RENTI AL/PL ATELE T basos 1 % notest b. Not Available [facility] Department [address] [place], [address], 08/18/2024 22:08:05 08/18/2008/18/2024 CBC WITH DIFFE RENTI AL/PL ATELE T neutrophils (absolute) 3.1 x10e3 /uL 1.4-7. 0 Not Available [facility] Department [address] [place], [address], 08/18/2024 22:08:05 08/18/20 24 08/18/2024 CBC WITH DIFFE RENTI AL/PL ATELE T lymphs (absolute) 1.4 x10e3 /uL 0.7-3. 1 Not Available [facility] Department [address] [place], [id number], 08/18/2024 22:08:05 08/18/20 24 08/18/2024 CBC WITH DIFFE RENTI AL/PL ATELE T monocytes(ab solute) 0.4 x10e3 /uL 0.1-0. 9 Not Available [facility] Department [address] [place], [id number], 08/18/2024 22:08:05 08/18/2008/18/2024 CBC WITH DIFFE RENTI AL/PL ATELE T eos (absolute) 0.1 x10e3 /uL 0.0-0. 4 Not Available [facility] Department [address] [place], [id number], 08/18/2024 22:08:05 08/18/20 24 08/18/2024 CBC WITH DIFFE RENTI AL/PL ATELE T baso (absolute) 0.1 x10e3 /uL 0.0-0. 2 Not Available [facility] Department [address] [place] [address], [id number], 08/18/2024 22:08:05 08/18/20 24 08/18/2024 CBC WITH DIFFE RENTI AL/PL ATELE T immature granulocytes 0.2 % notest b. Not Available [facility] Department [address] [place], [address], 08/18/2024 22:08:05 08/18/20 24 08/18/2024 CBC WITH DIFFE RENTI AL/PL ATELE T immature grans (abs) 0.0 x10e3 /uL 0.0-0. 1 Not Available [facility] Department [address] [place] [address], [address], 08/18/2024 22:08:05 08/18/20 24 08/18/2024 CBC WITH DIFFE RENTI AL/PL ATELE T NRBC 0 % 0-0 Not Available [facility] Department [address] [place] [address], [address], 08/18/2024 22:08:05 08/18/20 24 08/19/2024 NT-CA OBNP nt-probnp <36 pg/mL 0-249 The follo wing cut-p oints have been sugge sted for the use of proBN P for the diagn ostic evalu ation of heart failu re (HF) in patie nts with acute dyspn ea: Modal ity Age Optim al Cut (year s) Point ----- ----- ----- ----- ----- ----- ----- ----- ----- ----- ---- Diagn osis (rule in HF) <50 450 pg/mL 50 - 75 900 pg/mL >75 1800 pg/mL Exclu otto (rule out HF) Age indep enden t 300 pg/mL Not Available [facility] ([facility]) [address] [facility], [place], [address], 08/19/2024 11:17:12 08/18/20 24 08/19/2024 IRON AND TIBC iron bind.cap.(TI BC) 375 ug/dL 250-45 0 Not Available [facility] ([facility]) [address] [facility], [place], [address], 08/19/2024 11:17:13 08/18/20 24 08/19/2024 IRON AND TIBC UIBC 296 ug/dL 131-42 5 Not Available [facility] ([facility]) [address] [facility], [place], [address], 08/19/2024 11:17:13 08/18/20 24 08/19/2024 IRON AND TIBC iron 79 ug/dL 27-159 Not Available [facility] ([facility]) [address] [facility], [place], [address], 08/19/2024 11:17:13 08/18/2008/19/2024 IRON AND TIBC iron saturation 21 % 15-55 Not Available [facility] ([facility]) [address] [facility], [place], [address], 08/19/2024 11:17:13 05/01/20 23 05/01/2023 MRI, cervi mal spine , w/o contr ast No observ ation record ed. [facility] [address], [place], [address], 05/01/2023 14:52:17 09/21/20 23 09/21/2023 MAMMO , scree domenico, bilat eral No observ ation record ed. [email or web address] [place] [address] [address], [place], [address], 09/22/2023 10:21:45 08/11/20 24 08/11/2024 MAMMO , scree domenico, bilat eral No observ ation record ed. [address], [place], [address], 08/15/2024 08:38:30 Result Notes None recorded. Problems Name Problem SNOMED Code Status Onset Date Resolution Date Notes Provider Name and Address Organization Details Recorded Time Posttraumat ic stress disorder 26887925 Active 2020 LINDA JOHN Attn: Accountin g,[address] [facility], [place], [address], [place] [facility] 1 13:41:59 Left lower quadrant pain 255316070 Active 2020 LINDA JOHN Attn: Accountin g,[address] [facility], [place], [address], [place] [facility] 1 13:42:01 Osteoarthri tis of left hip joint 4967408503392 08 Active 2021 LINDA JOHN Attn: Accountin g,[address] [facility], [place], [address], [place] [facility] 2 13:13:24 Burn of skin 247006497 Active 2023 LINDA JOHN Attn: Accountin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
--- OUTSIDE RECORDS SUMMARY | 2025-02-10 10:53 | XMS_ITS | Data Portability ---
Author Organization [facility], Main Office Address [address] [place] [address] Care Team Providers Care Group Leader [employer] Name Role Phone CANDIDA CASAS Primary Care Provider CANDIDA CASAS Referring Provider [phone] Assessment Encounter Date Assessment Date Assessment LastModified by Organization Details LastModified Time 02/04/2023 02/04/2023 HPI: 47-year-old female came in today for evaluation of bilateral hand pain and numbness. She has been having symptoms for over 6 months. Patient does a lot of arthritis take things at home. These activities include involve a lot of pinching and gripping with her hands. She has been noticing pain in the base of both thumbs that has progressed over the last several months. She has also noticed over that time frame that she has been getting numbness in both hands not on during the day but wakes up every night with her hands asleep. She is getting a lot pain in the volar aspects of both wrists as well with use. Patient has been taking ibuprofen 400 mg every 6 hours. She max is out at 2400 mg per day. This does not seem to be improving her symptoms. She has not cut back on any of her activities during the day. Patient states that her hands will go numb very quickly during the day with small activities such as holding her phone or doing light activities around the house. She complains of numbness to all 10 fingers. She is not complaining of any neck pain. Physical exam 47-year-old female alert pleasant. Again complains of no neck pain is full range of motion without discomfort. She has a very positive Tinel's over both median nerves and both cubital tunnel. She has immediate tingling in the fingers with Tinel's in all 4 areas. She has a positive carpal tunnel compression test in both wrists. She has a positive cubital tunnel compression test in both elbows very quickly. She has normal interosseous strength in both hands. There is no atrophy of the thenar eminence in both hands. She has moderate tenderness to palpation both 1st CMC joints. The joints do feel stable. Full range of motion wrist and fingers otherwise. 2+ radial pulse in both wrists. Her 2 point discrimination is elevated. Using a paper clip she has greater than 7 mm all 10 fingers. After ChloraPrep was used on skin 5 mg Kenalog and 0.5 cc of 0.5% ropivacaine was injected into both 1st CMC joints. Impression: 47-year-old female has 2 issues. 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 I recommended she stop all these activities this point talked about treatment options including switching anti-inflammatorie s, cortisone injection lastly surgery. She is young to have surgery and I would recommend she put this off as long as possible. She would like to switch her anti-inflammatorie s and we will prescribe her meloxicam 15 mg daily. She has no GI intolerance. She also wanted to try cortisone injections in both thumbs which she tolerated well. She repeat these in the future. Patient 2nd issue is that she appears to have carpal tunnel as well as cubital tunnel in both hands. She does have elevated 2 point discrimination in very positive physical exam findings. I have recommended obtaining an EMG study for definitive diagnosis. Provided her with wrist splints that she should wear at night while sleeping. Given her the handout cubital tunnel syndrome and advised her get good for total splint online use it at night as well as the wrist splints to help with her symptoms. She should avoid having the elbow bent during the day and we discussed this as well. We will see her back after the EMG study. 30 minutes was spent in treatment patient half of this [id number] conversation Not available 02/04/2023 10:36:27 04/03/2023 04/03/2023 Impression: 1. Patient has clinical signs and symptoms of carpal tunnel syndrome on the left hand with constant tingling in the central three fingers of the left hand and Dysesthesias with Tinel's over the median nerve at the wrist on the left. She has not improved with oral anti-inflammatory medications and carpal tunnel splints and carpal tunnel release surgery would seem to be the most appropriate next step for her left hand. Her EMG nerve conduction velocity studies showed early evolving mild left carpal tunnel syndrome and no other peripheral neuropathy in either upper extremity. 2. Patient has very severe symptomatic CMC arthritis bilaterally. This may have been exacerbated by her using the cock-up splints 247. It seems that she is suffering the most with the pain from her CMC joints today and particularly on the left side is quite hypersensitive. She may benefit from a thumb spica forearm based splint on temporary basis until her evaluation is completed the rest the joints and we tried 1 on her left side and it was much more comfortable for her she felt so we gave her 1 for both sides today. Unfortunately, carpal tunnel release surgery is not going to improve her CMC joint arthritis symptoms 3. Possible inflammatory arthritis. Patient has unusual hypersensitivity over the central palm and dorsum of both hands without visible swelling. She has normal appearing skin and no signs of reflex sympathetic dystrophy. Some form of a complex regional pain disorder the was a consideration. I recommended obtaining blood work to rule out inflammatory arthritis problem such as rheumatoid arthritis that may be causing severe tendon hypersensitivity and tendinitis without tendon sheath effusions. We will order a CRP sed rate KHUSHI rheumatoid factor anti CCP. I am going to prescribe her a Medrol Dosepak which may help quiet down her tendinitis hypersensitivity. 4. Possible left C6 radiculopathy. Patient had severe dysesthesias and intense painful tingling in the left index and thumb with Spurling's maneuver her cervical spine to the right. It is possible she has a C6 radiculopathy which may be predisposing her to have acute carpal tunnel symptoms through the double crush phenomenon. She had no other definite neurologic signs or symptoms of radiculopathy no neurologic deficit today. I would recommend obtaining an MRI scan of her cervical spine at this time. If she has a lesion that correlates with significant C6 radicular symptoms, she would be referred for retail operations specialist evaluation of that problem.The Medrol Dosepak we are providing may give her some relief if she does have radicular symptoms. I will see her back after the cervical spine MRI scan. 40 minutes were spent total care this patient more than half the time spent in [id number] care. Not available 05/04/2023 13:37:00 Plan of Treatment Reminders Order Date Submit Date Provider Last Modified By Organization Details Last Modified Time Details Appointments None recorded. Lab C-reactive protein, quantitativ e, serum or plasma 2022 023 [email or web address] Not available 3 15:42:52 ESR (erythrocyt e sedimentati on rate), blood 2022 023 Not available 3 15:42:52 rf (rheumatoid factor) + anti-ccp abs, serum 2022 023 [email or web address] Not available 3 15:42:52 KHUSHI (antinuclea r antibodies) screen, serum 2022 023 [email or web address] Not available 3 23:08:20 CBC w/ auto diff 2022 023 SANTIAGO Not available 3 12:30:35 Referral None recorded. Procedures injection/a spiration joint/bursa (PROC) - in office procedure, administere d by provider 2022 023 [email or web address] In-Office Order, Internal Use Only DO Not Attach Compendium DO Not Attach Compendium, Do Not Delete/merge, [id number] 3 10:01:07 Surgeries None recorded. Imaging XR, hand 2022 023 [email or web address] [facility], [address], [place], [address], 3 13:47:21 Medication Orders Medrol (Capo) 4 mg tablets in a dose pack 2022 023 [id number], [address], [place], [place], [id number], 3 13:58:11 Kenalog 10 mg/mL suspension for injection 2022 023 [email or web address] [facility] #[id number], [address] [place] [address], [id number], 3 11:08:39 ropivacaine (PF) 5 mg/mL (0.5 %) injection solution 2022 023 [facility] #90550, [address] [place] [address], [id number], 3 12:29:15 Mobic 15 mg tablet 2022 023 [email or web address] [facility] #[id number], [address] [place] [address], [id number], 3 11:08:43 Patient TargetsNo targets recorded. Patient InstructionsNo instructions recorded. Reason for Referral None Reported. Results Created Date Observation Date Name Description Value Unit Range Abnormal Flag Note LastModifiedBy Organization Detail LastModifiedTime 05/06/20 22 MR hip w/o contr ast, left [facility] [address] [place] [address] [phone] Patien t Name: LENORE SILVERMAN Access ion #: [id number] Sex: M : 1974 0 Locati on: RA2 Attend ing Physic adam: TAVO DREW [facility] Physic adam: TAVO DREW Exam Date: 05/06/20 22 9:31 AM Exam Name: MRI HIP LT WO Admitt ing Diagno sis(es ): RADIOL OGY REPORT - FINAL EXAM: MRI HIP LT WO HISTOR Y: pain 47-yea r-old male with left hip pain, abduct or weakne ss, low back pain, no recent trauma . COMPAR NICK: Radiog raphs dated 2021. TECHNI QUE: Multip lanar multis equenc e noncon trast MR images of the left hip were perfor med. FINDIN GS: No eviden ce of fractu re or bone marrow edema about the lefthi p. No eviden ce of labral tear bilate rally. No signif icant joint space narrow ing or margin al osteop hytes are identi fied bilate rally. No eviden ce of femora l head AVN bilate rally. There are trace bilate ral hip effusi ons, likely physio logic. Page 1 of 2 [facility] Patien rukhsana Name: LENORE SILVERMAN Access ion #: [id number] Sex: M : 1974 0 Exam Date: 05/06/20 9:31 AM Exam Name: MRI HIP LT WO Admitt ing Diagno sis(es ): There are symmet shayna small partia l tears of the bilate ral gluteu s medius tendon insert ions (image s 16-19, series 501). There is mild signal abnorm ality of the right common hamstr ing tendon origin (image 21, series 801; images 10-11, series 501). There is trace free fluid in the pelvis . There are cystic change s of the endoce rvical canal. There is lower lumbar degene rative disc diseas e, not fully imaged here. IMPRES CORBIN: 1. No fractu res, bone marrow edema, AVN, or signif icant degene rative change s are identi fied about the pelvis or hips. 2. Small symmet shayna partia l tears of the bilate ral gluteu s medius tendon insert ions. 3. Tendin osis of the right common hamstr ing tendon origin . 4. Trace free fluid in the pelvis , possib ly physio logic. 5. Cystic change s of the endoce rvical canal, nonspe cific. Recomm end follow -up non emerge nt pelvic ultras ound for better charac teriza tion. 6. Lower lumbar degene rative disc diseas e, not fully imaged here. Create d and electr onical ly signed by: Jaime martínez MD Signed Date: 05/06/20 7:28 PM (CT) Dictat ed by: Jaime martínez MD (CT) (CT) Page 2 of 2 MIGRATION.[id number] [facility] (Imaging) [address] [facility] [address] [facility], [place], [address], 12/31/2022 20:26:45 05/06/20 MRI, lumba r spine , w/o contr ast [facility] [address], [place] [address] Adam t Name: MARIN LENORE Guerin Access ion #: [id number] Sex: M : 1974 0 Locati on: RA2 Attend ing Physic adam: TAVO DREW Orderi ng Physic adam: TAVO DREW Exam Date: 05/06/20 9:31 AM Exam Name: MRI L SPINE WO Admitt ing Diagno sis(es ): RADIOL OGY REPORT - FINAL EXAM: MRI L SPINE WO HISTOR Y: pain 47-yea r-old male with low back pain radiat ing to the left hip. COMPAR NICK: None availa ble. TECHNI QUE: Multip lanar multis equenc e noncon trast MR images of the lumbar spine were perfor med. FINDIN GS: No fractu re or listhe sis are identi fied in the lumbar spine. The conus termin ates at L1. L1-L2: There is a minima l circum ferent ial broad disc bulge. There is bilate ral facet hypert rophy. No signif icant spinal canal stenos is or neural Page 1 of 3 [facility] Adam t Name: MARIN LENORE Guerin Access ion #: [id number] Sex: M : 1974 0 Exam Date: 05/06/20 9:31 AM Exam Name: MRI L SPINE WO Admitt ing Diagno sis(es ): forami nal stenos is bilate rally. L2-L3: No signif icant discop athy, spinal canal stenos is, or neural forami nal stenos is bilate rally. There is bilate ral facet hypert rophy. L3-L4: There is a minima l circum ferent ial broad disc bulge. There is bilate ral facet hypert rophy. No signif icant spinal canal stenos is or neural forami nal stenos is bilate rally. L4-L5: There is disc desicc ation and loss of disc height . There is a circum ferent ial broad disc bulge with endpla te hypert rophy, most promin ent in the forami nal region s. There is bilate ral facet and ligame ntum flavum hypert rophy. No signif icant spinal canal stenos is. There is mild bilate ral neural forami nal stenos is. L5-S1: There is disc desicc ation and loss of disc height . There is a circum ferent ial broad disc bulge, most promin ent in the left prefor aminal region . There is bilate ral facet and ligame ntum flavum hypert rophy. No signif icant spinal canal stenos is, althou gh there is partia l efface ment of the left latera l recess . There is mild bilate ral neural forami nal stenos is. IMPRES CORBIN: 1. No fractu re of the lumbar spine. 2. Degene rative disc diseas e and facet arthro maria eugenia withou t high-g rade spinal canal stenos is or neural forami nal stenos is at any level in the lumbar spine. There may be imping ement of the left S1 nerve root in the latera l recess at the L5-S1 level. Page 2 of 3 [facility] t Name: LENORE SILVERMAN Access ion #: [id number] Sex: M : 1974 0 Exam Date: 05/06/20 9:31 AM Exam Name: MRI L SPINE WO Admitt ing Diagno sis(es ): Create d and electr onical ly signed by: Jaime amrtínez MD Signed Date: 05/06/20 4:13 PM (CT) Dictat ed by: Jaime martínez MD (CT) (CT) Page 3 of 3 [facility].[id number] [facility] (Imaging) [address] [place] [address], [address], 12/31/2022 20:26:45 02/05/20 XR, hand No observ ation record ed. [facility] [place] [address], [place], [address], 02/04/2023 10:30:52 03/26/20 23 03/26/2023 US, duple x, pelvi s No observ ation record ed. [address], [place], [address], 03/26/2023 15:55:09 03/26/20 23 03/26/2023 US, thyro id No observ ation record ed. [address], [place], [address], 03/26/2023 16:02:37 03/27/20 23 03/26/2023 elect romyo gram + nerve condu ction study No observ ation record ed. [email or web address] [address], [place], [address], 03/31/2023 13:49:07 05/01/20 23 05/01/2023 MRI, cervi mal spine , w/o contr ast No observ ation record ed. [address], [place], [address], 05/04/2023 09:02:04 Result Notes None recorded. Problems Name Problem SNOMED Code Status Onset Date Resolution Date Notes Provider Name and Address Organization Details Recorded Time Serum vitamin B12 below reference range 043596559 Active 2018 Not Available [facility] 3 20:24:19 Mixed anxiety and depressive disorder 779187870 Active 2018 Not Available [facility] 3 20:24:19 Low back pain 537258086 Active 2021 Not Available [facility] 3 20:24:19 Pain of left hip joint 8152777116536 00 Active 2021 Not Available [facility] 3 20:24:19 Trochanter ic bursitis of left hip 4820152130646 03 Active 2021 Not Available [facility] 3 20:24:19 Vitamin D deficiency 86531420 Active 2017 Not Available [facility] 3 20:24:19 Depressive disorder 56967380 Active Not Available [facility] 3 20:24:19 Eczema 71286958 Active 2020 Not Available [facility] 3 20:24:20 Multiple cysts of breast 042849821 Active 2017 Not Available [facility] 3 20:24:20 Pain of bilateral hands 8858747724656 9109 Active 2022 UMU Chavez null, 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 3 15:24:43 Cervical disc disorder with radiculopa thy 372192369 Active 2022 Torie Max CMA null, [facility] 3 15:25:17 Problem Notes None recorded. Procedures Surgical History Date Name Laterality Status Provider Name and Address Organization Details Recorded Time repair of cleft palate completed Not Available [facility] 12/31/2022 20:23:14 Hip surgery completed Not Available [facility] 12/31/2022 20:23:14 Ear Tubes completed Not Available [facility] 0 12/31/2022 20:23:14 Imaging Results Imaging Date Name Status LastModified by Organization Details LastModified Time 05/06/2022 MR hip w/o contrast, left completed [id number] [facility] (Imaging) [address] [place], [address], 12/31/2022 20:26:45 05/06/2022 MRI, lumbar spine, w/o contrast completed [id number] [facility] (Imaging) [address], [place], [address], 12/31/2022 20:26:45 02/04/2023 XR, hand completed [facility] [place] [address], [place], [address], 02/04/2023 10:30:52 03/26/2023 US, duplex, pelvis completed [email or web address] [address] [place] [address], [address], 03/26/2023 15:55:09 03/26/2023 US, thyroid completed [address], [address], 03/26/2023 16:02:37 03/26/2023 electromyogram + nerve conduction study completed [address] [place] [address], [address], 03/31/2023 13:49:07 05/01/2023 MRI, cervical spine, w/o contrast completed [address], [address], 05/04/2023 09:02:04 Procedure Notes None recorded. Medical Equipment None Reported. Allergies Allergen ID Allergen Name Allergen Category Reaction Reaction Severity Criticality Documentation Date Start Date Code Code System Note Provider Name and Address Organization Details Recorded Time 18119 Product containin g penicilli n (product) medicatio n Not available Not available Not available 12/31/2022 79851 8001 SNOMED Not Available [facility] 20:26:39 74517 erythromy eulalia medicatio n Not available Not available Not available 12/31/2022 4053 RxNorm Not Available [facility] 20:26:40 Medications Name Sig Start Date Stop Date Status Note LastModified by Organization Details LastModified Time venlafaxine ER 37.5 mg capsule,ext ended release 24 hr TAKE 1 CAPSULE BY MOUTH EVERY DAY 04/04 completed Not Available Not Available Not Available venlafaxine ER 75 mg capsule,ext ended release 24 hr TAKE 1 CAPSULE BY MOUTH EVERY DAY 02/04 completed Not Available Not Available Not Available doxycycline hyclate 100 mg capsule TAKE 1 CAPSULE BY MOUTH TWICE DAILY FOR ACUTE OPIOID THERAPY DAYS active Not Available Not Available No t Available cefaclor 500 mg capsule TK 1 C PO Q 8 H FOR 10 DAYS 08/01 completed Not Available Not Available Not Available tolterodine ER 4 mg capsule,ext ended release 24 hr 11/15 completed Not Available Not Available Not Available meloxicam 15 mg tablet TAKE 1 TABLET BY MOUTH EVERY DAY 04/03 completed Not Available Not Available Not Available lidocaine 4 % topical cream 02/07 completed Not Available Not Available Not Available clindamycin HCl 150 mg capsule 04/04 completed Not Available Not Available Not Available venlafaxine ER 150 mg capsule,ext ended release 24 hr TAKE 1 CAPSULE BY MOUTH EVERY DAY active Not Available Not Available No t Available metronidazo le 500 mg tablet TAKE 1 TABLET BY MOUTH TWICE DAILY FOR 7 DAYS active Not Available Not Available No t Available omeprazole 40 mg capsule,del ayed release TK 1 C PO QD 11/15 completed Not Available Not Available Not Available triamcinolo ne acetonide 0.1 % topical cream APPLY A THIN LAYER TO THE AFFECTED AREA(S) BY TOPICAL ROUTE 2 TIMES PER DAY active Not Available Not Available No t Available alprazolam 0.25 mg tablet Take 1 tablet twice a day by oral route as needed. active Not Available Not Available No t Available famotidine 20 mg tablet TK 1 T PO BID 11/15 completed Not Available Not Available Not Available amitriptyli ne 25 mg tablet TK 1 T PO HS 11/15 completed Not Available Not Available Not Available Kenalog 10 mg/mL suspension for injection in office 04/03 completed [facility]: [phone] 20 Not Available Not Available Not Available doxycycline monohydrate 100 mg capsule TK 1 C PO BID FOR 10 DAYS 10/11 completed Not Available Not Available Not Available ranitidine 150 mg tablet TK 1 T PO QD FOR 30 DAYS 11/15 completed Not Available Not Available Not Available buspirone 10 mg tablet TAKE 1 TABLET BY MOUTH TWICE DAILY 11/15 completed Not Available Not Available Not Available cefadroxil 1 gram tablet Take 1 tablet twice a day by oral route for 10 days. 05/20 completed Not Available Not Available Not Available gabapentin 300 mg capsule Take 1 capsule every day by oral route at bedtime for 30 days. 02/07 completed Not Available Not Available Not Available omeprazole 20 mg capsule,del ayed release Take 1 capsule every day by oral route. 12/13 completed Not Available Not Available Not Available montelukast 10 mg tablet TK 1 T PO QD 11/15 completed Not Available Not Available Not Available ergocalcife rol (vitamin D2) 1,250 mcg (50,000 unit) capsule TAKE 1 CAPSULE BY MOUTH EVERY WEEK 02/04 completed Not Available Not Available Not Available methylpredn isolone 4 mg tablets in a dose pack FOLLOW PACKAGE DIRECTION S active Not Available Not Available No t Available albuterol sulfate HFA 90 mcg/actuati on aerosol inhaler INL 2 PFS PO Q 4 H PRN 04/04 completed Not Available Not Available Not Available oxybutynin chloride 5 mg tablet 05/19 completed Not Available Not Available Not Available cefdinir 300 mg capsule Take 1 capsule every 12 hours by oral route for 10 days. 05/20 completed Not Available Not Available Not Available fluticasone propionate 50 mcg/actuati on nasal spray,suspe nsion [place] 1 spray every day by intranasa l route. 02/07 completed Not Available Not Available Not Available sertraline 50 mg tablet TK 1 T PO QD 02/07 completed Not Available Not Available Not Available naproxen 500 mg tablet TAKE 1 TABLET TWICE DAILY BY ORAL ROUTE FOR 14 DAYS 02/04 completed Not Available Not Available Not Available mometasone 0.1 % topical cream APPLY TOPICALLY TO HANDS TWICE DAILY FOR 2 WEEKS. STOP FOR 2 WEEKS AND APPLY VASELINE 2 TIMES DAILY. REPEAT NEEDED 02/04 completed Not Available Not Available Not Available escitalopra m 10 mg tablet TK 1 T PO QD 09/21 completed Not Available Not Available Not Available bupropion HCl XL 300 mg 24 hr tablet, extended release TAKE 1 TABLET BY MOUTH EVERY DAY active Not Available Not Available No t Available bupropion HCl XL 150 mg 24 hr tablet, extended release TK 1 T PO QD 08/23 completed Not Available Not Available Not Available nitrofurant oin monohydrate /macrocryst als 100 mg capsule Take 1 capsule every 12 hours by oral route for 7 days. 10/11 completed Not Available Not Available Not Available June FE 11/21 () 05/19 completed Not Available Not Available Not Available lidocaine (PF) 5 mg/mL (0.5 %) injection solution Take 20 mg by injection route. 08/20 completed Not Available Not Available Not Available ropivacaine (PF) 5 mg/mL (0.5 %) injection solution in office 2022 active [facility] [phone] Not Available Not Available Not Available Myrbetriq 25 mg tablet,exte nded release Take 1 tablet every day by oral route. 10/11 completed Not Available Not Available Not Available Aurovela Fe 11-21 (28) 1 mg-20 mcg (21)/75 mg (7) tablet TK 1 T PO QD 11/15 completed Not Available Not Available Not Available Vitals Date Recorded Body mass index (BMI) Body height Body weight Provider Name and Address Organization Details Last Updated DateTime 04/04/2022 28.7 kg/m2 152.4 cm 80890.08 g Not Available [facility] [place] 12/31/2022 20:23:23 Date Recorded Body height Provider Name an d Address Organization Details Last Updated DateTime 05/30/2022 152.4 cm Not Available [facility] 3 20:23:21 Date Recorded Body height Provider Name an d Address Organization Details Last Updated DateTime 08/20/2022 152.4 cm Not Available [facility] 3 20:23:21 Date Recorded Body height Provider Name an d Address Organization Details Last Updated DateTime 02/04/2023 152.4 cm [facility] [place] [facility] 02/04/2023 09:34:21 Date Recorded Body height Body mass index (BMI) Body weight Provider Name and Address Organization Details Last Updated DateTime 04/03/2023 157.48 cm 25.6 kg/m2 09506.93 g [facility] [place] [facility] 04/03/2023 11:41:49 Social History Question Answer Notes LastModified by Organizat ion Details LastModified Time Tobacco Smoking Status Never Smoker Not Available [facility] 12/31/2022 20:22:56 What Is Your Level Of Alcohol Consumption? Occasional [id number] Information not available 12/31/2022 Sex: Unknown Functional Status None recorded. Mental Status None recorded. Family History Relationship Description Onset Age of this Age Resolved Age Notes LastModified by Organization Details LastModified Time Father Family history of stroke [id number] Not available 12/31/2022 20:23:14 Unspecified Relation Family history of malignant neoplasm mom side of the family [id number] Not available 12/31/2022 20:23:14 Unspecified Relation Diabetes mellitus dad side of the family [id number] Not available 12/31/2022 20:23:15 Unspecified Relation Myocardial infarction dad side of the family [id number] Not available 12/31/2022 20:23:15 Medical History Condition Response BLINDNESS N KIDNEY STONES N MRSA N CARPAL TUNNEL SYNDROME N LUNG DISEASE/DISORDER N HISTORY OF DRUG ABUSE N RADIATION / CHEMOTHERAPY N COPD N SPORTS INJURY N ANKLE PAIN N BLOOD DISEASES N SCHIZOPHRENIA N SHINGLES N BOWEL PROBLEMS N SHOULDER PAIN N DEPRESSION (INCLUDING POST ) N STROKE/TIA N KNEE PAIN N ULCERS N BENIGN PROSTATIC HYPERPLASIA N OBESITY N GERD/NAUSEA N ANEURYSM N URINARY/BLADDER/KIDNEY PROBLEMS Y CORONARY ARTERY DISEASE (CAD) N ADDICTION CONCERNS N USE OF BLOOD THINNERS N SKIN PROBLEMS Y EMPHYSEMA N MUSCLE,JOINT OR BONE PROBLEMS N DVT N STOMACH ULCERS N BLOOD CLOTS N USE OF NSAIDS N CONCUSSION OR SPINAL TRAUMA N NEUROPATHY N AIDS/HIV N FRACTURES N ELBOW PAIN N HYPERTENSION N TOURETTE'S N ANXIETY DISORDER N Metal allergy N BLOOD TRANSFUSION N ANEMIA/BLOOD DISORDER N BIPOLAR DISORDER N BRONCHITIS N OSTEOARTHRITIS N TUBERCULOSIS N FOOT PROBLEM N HEART VALVE DISORDERS N ALLERGIES/HAYFEVER N SOFT TISSUE INJURY N INFECTIOUS DISEASE N HEART ARRHYTHMIA N INSOMNIA N RHEUMATOID ARTHRITIS N HIGH CHOLESTEROL / HYPERLIPIDEMIA N EDEMA N CHRONIC PAIN SYNDROME N CAROTID BLOCKAGE N BACK / NECK PROBLEMS N HAVE YOU BEEN HOSPITALIZED OR SEEN IN [facility] IN THE PAST YEAR ? N BURSITIS N HERNIATED DISC N DIALYSIS N FIBROMYALGIA N OSTEOPOROSIS Y ARTHRITIS Y NO SIGNIFICANT PAST MEDICAL HISTORY N PERIPHERAL NEUROPATHY N DIABETES, TYPE N HEARTBURN / REFLUX N HEPATITIS / LIVER DISEASE N GOUT N SLEEP DISORDER N ALZHEIMER'S DISEASE N HERPES N SEIZURES/EPILEPSY N HEADACHES/MIGRAINES N VASCULAR DISEASE N HIP PAIN N Blood Disorder N DIZZINESS N HEAD TRAUMA OR INJURY N HEART DISEASE/HEART PROBLEMS N MULTIPLE SCLEROSIS N CARDIAC ARRHYTHMIA N CANCER: SPECIFY N ANESTHESIA COMPLICATIONS N ATRIAL FIBRILLATION N AUTOIMMUNE DISEASE N Gynecological HistoryNo gynecological history recorded. Obstetrics History GPAL:G 0 P 0 0 0 0 Immunizations Vaccine Type Date Status Note Provider Nam e and Address Organization Details Recorded Time Influenza, split virus, quadrivalent, preservative 1 completed Not Available [facility] 01/07/2023 11:09:34 Influenza, split virus, quadrivalent, preservative 8 completed Not Available [facility] 01/07/2023 11:09:34 Influenza, split virus, quadrivalent, PF 1 completed Not Available [facility] 01/07/2023 11:09:34 Influenza, split virus, quadrivalent, PF 8 completed Not Available [facility] 01/07/2023 11:09:34 Past Encounters Encounter ID Performer Location Encounter Start Date Encounter Closed Date Diagnosis/Indication Diagnosis SNOMED-CT Code Diagnosis ICD10 Code Diagnosis Note [id number] [facility] [address] [place] [address] 04/04/2022 00:00:00 04/05/2022 13:04:40 [id number] [facility] [address] [place] [address] 05/30/2022 00:00:00 05/30/2022 12:40:58 [id number] [facility] [address] [place] [address] 08/20/2022 00:00:00 08/20/2022 12:29:30 [id number] LINDA Rivera [facility] [address] [place] [address] 02/04/2023 09:31:02 02/04/2023 13:47:21 Pain of bilateral hands 8594856505 [id number] M79.641 M79.642 [id number] Tavo Ko MD [facility] [place] [address] [place] [address] 04/03/2023 10:53:20 04/06/2023 09:54:36 Pain of bilateral hands [id number] M79.641 M79.642 Health Concerns Section Related Observation LastModified by Organization Detai ls LastModified Time None Recorded Concern Status LastModified by Organization Details LastModified Time None Recorded Advance Directives Directive None Recorded Payers Encounter Date Sequence Insurance Name Policy Number Policy Ocasio Covered Member ID Ocasio Member ID Guarantor Name 02/04/2023 1 [facility] ON OR AFTER 05/02/21 (MEDICAID REPLACEMENT - HMO) Lenore Medellin [id number] Lenore Medellin 04/03/2023 1 [facility] ON OR AFTER 05/02/21 (MEDICAID REPLACEMENT - HMO) Lenore Medellin [id number] Lenore Medellin Notes Date Note Type Note Provider Name and Address Organization Details Recorded Time 04/03/2023 text/html Patient is a 48-year-old female referred by Dr. Casas for evaluation of her bilateral hand pain and numbness symptoms. She saw Manan Roesnberg on 02/04/2023 and I reviewed his note was thought that clinically she had carpal tunnel syndrome and cubital tunnel syndrome in both hands and had elevated 2 point discrimination greater than 10 mm all 10 fingers and she was noted to have some trapezial metacarpal joint arthritis and had cortisone shots in both CMC joints at that time and was started on meloxicam 15 mg daily. She was given a handout on cubital tunnel syndrome advised to avoid holding the elbow bent and was given wrist splints to use for use at night and an EMG was ordered. Her x-rays from 02/04/2023 showed moderate CMC joint subluxation mild joint space narrowing bilaterally. The CMC joint and injections were unhelpful bilaterally. She complains of pain and popping bilaterally. She took the meloxicam 15 mg daily consistently for 1 month that did help. After stopping it she did notice any worsening of her symptoms either. She still has pain every day she stopped crocheting. She still does laundry and cleaning because she has to but has a lot of pain and numbness worse on the left than on the right. She complains that on the left hand all 5 digits have numbness tingling today. On the right hand she has tingling in the thumb index and that is all. She has also noticed some triggering in catching and pain and tenderness A1 elliott of the index finger on the right. She started wearing the night splints at night. She complained she could pick anything up there she started wearing the night splints 247. She does not feel these helped her numbness and tingling symptoms at all. She recently had thyroid ultrasound history of nontoxic thyroid nodule and the impression was no thyroid nodule seen on 03/26/2003. On the same day she had pelvic ultrasound with TV. It was unremarkable pelvic ultrasound except for mildly enlarged uterus. She had bilateral upper extremity nerve conduction velocity tests and EMG on 03/26/2023 and the results stated early changes suggestive of evolving mild left carpal tunnel syndrome normal EMG clinical correlation recommended. There were no abnormal findings right hand. In review, she states that she has had tingling and her fingers off and on both hands for the last 6 months but constant tingling in the central 3 fingers of the left hand for the past few months. She has had chronic neck pain starting about 10 years ago. Tavo Ko MD [address] [place] [address], [place] [address], [place], [address], [facility] 05/04/2023 13:37:03 OBGyn Episode No OBEpisode recorded.
== END 2025-02-10 10:18 | disposition home or self-care (01) ==
PROVIDERS: PCP Physician Assistant; Visit Provider Surgery
DX: N60.19 Diffuse cystic mastopathy of unspecified breast (principal); N60.02 Solitary cyst of left breast; N63.0 Unspecified lump in unspecified breast; R92.8 Other abnormal and inconclusive findings on diagnostic imaging of breast
CPT/HCPCS: 76641; 77062; 77066; G0279

== ENCOUNTER 2025-03-14 13:26 | Outpatient (CLI) | payer OTHER, SELFPAY ==
--- NOTE | ~2025-03-14 | CT_ITS ---
EXAMINATION: CT sinus wo con DATE: 03/14/2025 13:56 INDICATION: Chronic sinusitis TECHNIQUE: Computed tomography (CT) of the paranasal sinuses was performed without intravenous contra st. The dose-length product was 270.86 mGy-cm. Automated exposure control and iterative reconstructio n technique were employed. COMPARISON: None FINDINGS: There is mucosal thickening of the maxillary sinuses. No mucoperiosteal reaction. No air-fl uid levels. Ostiomeatal units are patent. Mild rightward nasal septal deviation. Mastoids are pneumat ized. There is questionable midline shift to the left, although the study is nondiagnostic for brain parenchyma. Recommend correlation with CT brain. IMPRESSION: 1. Mild maxillary sinus disease. 2: Possible mild left midline shift of the brain, although study is nondiagnostic for intracranial s tructures. Recommend correlation with CT brain. Reviewed, dictated and finalized at location A. IMPRESSION: 1. Mild maxillary sinus disease. 2: Possible mild left midline shift of the brain, although study is nondiagnos tic for intracranial structures. Recommend correlation with CT brain.
--- OUTSIDE RECORDS SUMMARY | 2025-03-14 13:50 | XMS_ITS | Data Portability ---
Author Organization [facility] [place] Pin[place] Address [address] [place] [address] Care Team Providers Care Retail Sales Manager Name Role Phone YESSENIACANDIDA Primary Care Provider [phone] Assessment Encounter Date Assessment Date Assessment LastModified by Organization Details LastModified Time 11/26/2023 11/26/2023 f/u one month for colonoscopy, refills. depression f/u Not available 11/26/2023 13:38:59 12/30/2023 12/30/2023 mammogram order given by power washer Not available 12/30/2023 10:39:05 Plan of Treatment Reminders Order Date Submit Date Provider Last Modified By Organization Details Last Modified Time Details Appointments None recorded. Lab pro BNP (pro B-type natriuretic peptide), serum or plasma 2023 SANTIAGO DIETRICH, Josee Aceves, [address], [place], [address], 11:17:12 CBC w/ auto diff 2023 024 SANTIAGO DIETRICH, Josee chaim Aceves, [address], [place], [address], 22:08:05 iron + total iron-bindin g capacity (TIBC), serum 2023 024 [facility], [facility] [address], [place], [address], 4 11:17:13 CMP, serum or plasma 2023 024 SANTIAGO DIETRICH, Josee Aceves, [address], [place], [address], 4 22:08:03 CMP, serum or plasma 2023 024 SANTIAGO WOLFECORP, Josee Aceves, [address], [place], [address], 4 21:08:12 CBC w/ auto diff 2023 024 SANTIAGO DIETRICH, Josee Aceves, [address], [place], [address], 4 21:08:13 lipid panel, serum 2023 024 SANTIAGO DIETRICH, Josee Aceves, [address], [place], [address], 4 21:08:12 HbA1c (hemoglobin A1c), blood 2023 024 SANTIAGO DIETRICH, Josee Aceves, [address], [place], [address], 4 12:12:14 TSH + free T4, serum 2023 024 SANTIAGO LEWISRP, Josee Aceves, [address], [place], [address], 4 12:12:13 pathology study - 1 small mole on right chest near axilla w/o concerning features 2022 023 SANTIAGO DIETRICH, Josee Aceves, [address], [place], [address], 3 11:13:28 Referral cardiologis t referral 2023 024 [email or web address] Tony Jiménezg DO, [address], [address], [place], [address], 4 12:44:27 jeep driver referral 2023 024 [email or web address] Ilda Dao DPM, [address], [address], [place], [address], 4 09:55:31 gastroenter ologist referral 2023 024 SANTIAGO Branch MD, [address] [place], [address], 4 13:45:22 Procedures None recorded. Surgeries None recorded. Imaging US, abdomen, complete 2023 024 [email or web address] [facility] ([facility]), [address], [place], [address], 4 07:51:57 Medication Orders doxycycline monohydrate 100 mg capsule 2023 024 [id number], [address] [facility] [address] [facility] [address] [place] [address], [id number], 4 15:58:55 mometasone 0.1 % topical cream 2023 024 [id number], [address] [facility] [address] [facility] [address] [place] [address], [id number], 4 10:41:25 Miralax 17 gram/dose oral powder [email or web address] [facility] #31155, [address] [facility] [address] [facility] [address] [place] [address], [id number], 4 09:21:45 silver sulfadiazin e 1 % topical cream 2023 024 [email or web address] [facility] #41295, [address] [place] [address], [id number], 4 09:09:48 doxycycline hyclate 100 mg capsule 2023 024 kim [facility] #36752, [address] [place] [address], [id number], 4 09:04:48 pimecrolimu s 1 % topical cream 2023 024 [facility] #00702, [address] [place] [address], [id number], 4 13:21:39 venlafaxine ER 37.5 mg capsule,ext ended release 24 hr 2023 [facility] #38655, [address] [place] [address], [id number], 4 13:25:16 Patient TargetsNo targets recorded. Patient Instructions Encounter Date Encounter Id Patient Instructions Last Modified By Organization Details Last Modified Time 03/17/2024 [id number] A healthy lifestyle: care instructions Not available 03/21/2024 08:31:14 08/18/2024 [id number] rhythm strip, EKG* Not available 08/18/2024 11:59:35 Reason for Referral Sales Contractor Referral for Screening for malignant neoplasm of colon Referring Physician: Candida Casas Title Closer, Encounter Date: 12/30/2023 Licensed Psychologist Referral for Pain in left foot Referring Physician: [facility], Encounter Date: 03/17/2024 Java Flex Developer Referral for At ypical chest pain Referring Physician: Candida Casas Title Closer, Encounter Date: 08/18/2024 Results Created Date Observation Date Name Description Value Unit Range Abnormal Flag Note LastModifiedBy Organization Detail LastModifiedTime 04/30/20 23 05/07/2023 PATHO LOGY REPOR T . Commen t Mater ial submi tted: . chest - RIGHT CHEST . Modif iers: right Not Available [facility] ([facility]) [address] [facility], [place], [address], 05/07/2023 11:13:28 04/30/20 23 05/07/2023 PATHO LOGY REPOR T . Commen t Clini mal histo ry: . DISOR ASHLYN OF THE SKIN AND SUBCU TANEO US TISSU E, UNSPE CIFIE D Not Available [facility] ([facility]) [address] [facility], [place], [address], 05/07/2023 11:13:28 04/30/20 23 05/07/2023 PATHO LOGY REPOR T . Commen t Diagn osis: COMPO UND NEVUS ; IRRIT ATED. GEA 05/06 1152 Local Not Available [facility] ([facility]) [address] [facility], [place], [address], 05/07/2023 11:13:28 04/30/20 23 05/07/2023 PATHO LOGY REPOR T . Commen t Aisha evangelista d: . Vu chang MD, [place] topat holog ist Not Available [facility] ([facility]) [address] [facility], [place], [address], 05/07/2023 11:13:28 04/30/20 23 05/07/2023 PATHO LOGY [...] MILTON 05/04 0944 Local Not Available [facility] ([facility]) [address] [place], [address], 05/07/2023 11:13:28 04/30/20 23 05/07/2023 PATHO LOGY REPOR T . Commen t Patho logis t provi ded ICD-1 0: D22.5 Not Available [facility] ([facility]) [address] [place], [address], 05/07/2023 11:13:28 04/30/20 23 05/07/2023 PATHO LOGY REPOR T . Commen t CPT . 53191 1 Not Available [facility] ([facility]) [address] [place], [address], 05/07/2023 11:13:28 12/30/19 24 12/30/2023 LIPID PANEL cholesterol, total 188 mg/dL 100-19 9 Not Available [facility] [address] [place], [address], 12/30/2023 21:08:12 12/30/19 24 12/30/2023 LIPID PANEL triglyceride s 82 mg/dL 0-149 Not Available [facility] [address] [place], [address], 12/30/2023 21:08:12 12/30/19 24 12/30/2023 LIPID PANEL HDL cholesterol 48 mg/dL 40-999 Not Available [facility] [address] [place], [address], 12/30/2023 21:08:12 12/30/19 24 12/30/2023 LIPID PANEL VLDL cholesterol mal 16 mg/dL 5-40 Not Available [facility] [address] [place], [address], 12/30/2023 21:08:12 12/30/19 24 12/30/2023 LIPID PANEL LDL chol calc (nih) 135 mg/dL 0-99 above high normal Not Available [facility] [address] [place] [address], [address], 12/30/2023 21:08:12 12/30/19 24 12/30/2023 COMP. METAB OLIC PANEL (14) glucose 93 mg/dL 70-99 Not Available [facility] [address] [place], [address], 12/30/2023 21:08:12 12/30/19 24 12/30/2023 COMP. METAB OLIC PANEL (14) BUN 9 mg/dL 6-24 Not Available [facility] [address] [place], [address], 12/30/2023 21:08:12 12/30/19 24 12/30/2023 COMP. METAB OLIC PANEL (14) creatinine 0.84 mg/dL 0.76-1 .27 Not Available [facility] [address] [place], [address], 12/30/2023 21:08:12 12/30/19 24 12/30/2023 COMP. METAB OLIC PANEL (14) eGFR 85 >=60 Units for eGFR value s are mL/mi n/1.7 3 The eGFR Calcu latio n has not been valid ated for patie nts under the age of 18. If test resul ts are displ ayed for a patie nt under the age of 18, disre wandy that value . Not Available [facility] [address] [place] [address], [address], 12/30/2023 21:08:12 12/30/19 24 12/30/2023 COMP. METAB OLIC PANEL (14) BUN/creatini ne ratio 11 9-23 Not Available [facility] [address] [place] [address], [address], 12/30/2023 21:08:12 12/30/19 24 12/30/2023 COMP. METAB OLIC PANEL (14) sodium 140 mmol/ L 134-14 4 Not Available [facility] [address] [place] [address], [address], 12/30/2023 21:08:12 12/30/19 24 12/30/2023 COMP. METAB OLIC PANEL (14) potassium 3.9 mmol/ L 3.5-5. 2 Not Available [facility] [address] [place] [address], [address], 12/30/2023 21:08:12 12/30/19 24 12/30/2023 COMP. METAB OLIC PANEL (14) chloride 104 mmol/ L 96-106 Not Available [facility] [address] [place] [address], [address], 12/30/2023 21:08:12 12/30/19 24 12/30/2023 COMP. METAB OLIC PANEL (14) carbon dioxide, total 24 mmol/ L 20-29 Not Available [facility] [address] [place] [address], [address], 12/30/2023 21:08:12 12/30/19 24 12/30/2023 COMP. METAB OLIC PANEL (14) calcium 9.3 mg/dL 8.7-10 .2 Not Available [facility] [address] [place] [address], [address], 12/30/2023 21:08:12 12/30/19 24 12/30/2023 COMP. METAB OLIC PANEL (14) protein, total 7.0 g/dL 6.0-8. 5 Not Available [facility] [address] [place], [address], 12/30/2023 21:08:12 12/30/19 24 12/30/2023 COMP. METAB OLIC PANEL (14) albumin 4.1 g/dL 3.9-4. 9 Not Available [facility] [address] [place], [address], 12/30/2023 21:08:12 12/30/19 24 12/30/2023 COMP. METAB OLIC PANEL (14) globulin, total 2.9 g/dL 1.5-4. 5 Not Available [facility] [address] [place], [address], 12/30/2023 21:08:12 12/30/19 24 12/30/2023 COMP. METAB OLIC PANEL (14) A/G ratio 1.0 1.2-2. 2 below low normal Not Available [facility] [address] [place], [address], 12/30/2023 21:08:12 12/30/19 24 12/30/2023 COMP. METAB OLIC PANEL (14) bilirubin, total 0.2 mg/dL 0.0-1. 2 Not Available [facility] [address] [place], [address], 12/30/2023 21:08:12 12/30/19 24 12/30/2023 COMP. METAB OLIC PANEL (14) alkaline phosphatase 74 IU/L 44-121 Not Available [facility] Department [address] [place], [address], 12/30/2023 21:08:12 12/30/19 24 12/30/2023 COMP. METAB OLIC PANEL (14) AST (SGOT) 12 IU/L 0-40 Not Available [facility] Department [address] [place], [address], 12/30/2023 21:08:12 12/30/19 24 12/30/2023 COMP. METAB OLIC PANEL (14) ALT (SGPT) 11 IU/L 0-32 Not Available [facility] Department [address] [place], [address], 12/30/2023 21:08:12 12/30/19 24 12/30/2023 CBC WITH DIFFE RENTI AL/PL ATELE T WBC 5.6 x10e3 /uL 3.4-10 .8 Not Available [facility] [address] [place], [address], 12/30/2023 21:08:13 12/30/19 24 12/30/2023 CBC WITH DIFFE RENTI AL/PL ATELE T RBC 3.86 x10e6 /uL 3.77-5 .28 Not Available [facility] [address] [place], [address], 12/30/2023 21:08:13 12/30/19 24 12/30/2023 CBC WITH DIFFE RENTI AL/PL ATELE T hemoglobin 11.4 g/dL 11.1-1 5.9 Not Available [facility] [address] [place], [address], 12/30/2023 21:08:13 12/30/19 24 12/30/2023 CBC WITH DIFFE RENTI AL/PL ATELE T hematocrit 36.1 % 34.0-4 6.6 Not Available [facility] [address] [place], [address], 12/30/2023 21:08:13 12/30/19 24 12/30/2023 CBC WITH DIFFE RENTI AL/PL ATELE T MCV 94 fL 79-97 Not Available [facility] [address] [place], [address], 12/30/2023 21:08:13 12/30/19 24 12/30/2023 CBC WITH DIFFE RENTI AL/PL ATELE T MCH 29.5 pg 26.6-3 3.0 Not Available [facility] [address] [place], [address], 12/30/2023 21:08:13 12/30/19 24 12/30/2023 CBC WITH DIFFE RENTI AL/PL ATELE T MCHC 31.6 g/dL 31.5-3 5.7 Not Available [facility] [address] [place], [address], 12/30/2023 21:08:13 12/30/19 24 12/30/2023 CBC WITH DIFFE RENTI AL/PL ATELE T RDW 12.9 % 11.5-1 4.5 Not Available [facility] [address] [place], [address], 12/30/2023 21:08:13 12/30/19 24 12/30/2023 CBC WITH DIFFE RENTI AL/PL ATELE T platelets 346 x10e3 /uL 150-45 0 Not Available [facility] [address] [place], [address], 12/30/2023 21:08:13 12/30/19 24 12/30/2023 CBC WITH DIFFE RENTI AL/PL ATELE T neutrophils 47 % notest b. Not Available [facility] [address] [place], [address], 12/30/2023 21:08:13 12/30/19 24 12/30/2023 CBC WITH DIFFE RENTI AL/PL ATELE T lymphs 37 % notest b. Not Available [facility] [address] [place], [address], 12/30/2023 21:08:13 12/30/19 24 12/30/2023 CBC WITH DIFFE RENTI AL/PL ATELE T monocytes 10 % notest b. Not Available [facility] [address] [place], [address], 12/30/2023 21:08:13 12/30/19 24 12/30/2023 CBC WITH DIFFE RENTI AL/PL ATELE T eos 4 % notest b. Not Available [facility] [address] [place], [address], 12/30/2023 21:08:13 12/30/19 24 12/30/2023 CBC WITH DIFFE RENTI AL/PL ATELE T basos 1 % notest b. Not Available [facility] [address] [place] [address], [address], 12/30/2023 21:08:13 12/30/19 24 12/30/2023 CBC WITH DIFFE RENTI AL/PL ATELE T neutrophils (absolute) 2.6 x10e3 /uL 1.4-7. 0 Not Available [facility] [address] [place], [address], 12/30/2023 21:08:13 12/30/19 24 12/30/2023 CBC WITH DIFFE RENTI AL/PL ATELE T lymphs (absolute) 2.1 x10e3 /uL 0.7-3. 1 Not Available [facility] [address] [place], [address], 12/30/2023 21:08:13 12/30/19 24 12/30/2023 CBC WITH DIFFE RENTI AL/PL ATELE T monocytes(ab solute) 0.6 x10e3 /uL 0.1-0. 9 Not Available [facility] [address] [place], [address], 12/30/2023 21:08:13 12/30/19 24 12/30/2023 CBC WITH DIFFE RENTI AL/PL ATELE T eos (absolute) 0.2 x10e3 /uL 0.0-0. 4 Not Available [facility] [address] [place] [address], [address], 12/30/2023 21:08:13 12/30/19 24 12/30/2023 CBC WITH DIFFE RENTI AL/PL ATELE T baso (absolute) 0.1 x10e3 /uL 0.0-0. 2 Not Available [facility] [address] [place], [address], 12/30/2023 21:08:13 12/30/19 24 12/30/2023 CBC WITH DIFFE RENTI AL/PL ATELE T immature granulocytes 0.2 % notest b. Not Available [facility] [address] [place] [address], [address], 12/30/2023 21:08:13 12/30/19 24 12/30/2023 CBC WITH DIFFE RENTI AL/PL ATELE T immature grans (abs) 0.0 x10e3 /uL 0.0-0. 1 Not Available [facility] [address] [place] [address], [address], 12/30/2023 21:08:13 12/30/19 24 12/30/2023 CBC WITH DIFFE RENTI AL/PL ATELE T NRBC 0 % 0-0 Not Available [facility] [address] [place] [address], [address], 12/30/2023 21:08:13 12/30/19 24 12/31/2023 TSH+F REE T4 TSH 2.060 uIU/m L 0.450- 4.500 Not Available [facility] ([facility]) [address] [facility], [place], [address], 12/31/2023 12:12:13 12/30/19 24 12/31/2023 TSH+F REE T4 T4,free(dire ct) 1.05 NG/dL 0.82-1 .77 Not Available [facility] ([facility]) [address] [facility], [place], [address], 12/31/2023 12:12:13 12/30/19 24 12/31/2023 HEMOG LOBIN A1C hemoglobin A1C 5.5 % 4.8-5. 6 Predi abete s: 5.7 - 6.4 Diabe claudia: >6.4 Glyce kathy contr ol for adult s with diabe claudia: <7.0 Not Available [facility] ([facility]) [address] [facility], [place], [address], 12/31/2023 12:12:14 08/18/2008/18/2024 COMP. METAB OLIC PANEL (14) glucose 95 mg/dL 70-99 Not Available [facility] [address] [place] [address], [address], 08/18/2024 22:08:03 08/18/20 24 08/18/2024 COMP. METAB OLIC PANEL (14) BUN 12 mg/dL 6-24 Not Available [facility] [address] [place] [address], [address], 08/18/2024 22:08:03 08/18/20 24 08/18/2024 COMP. METAB OLIC PANEL (14) creatinine 0.88 mg/dL 0.76-1 .27 Not Available [facility] [address] [place] [address], [address], 08/18/2024 22:08:03 08/18/20 24 08/18/2024 COMP. METAB OLIC PANEL (14) eGFR 80 >=60 Units for eGFR value s are mL/mi n/1.7 3 The eGFR Calcu latio n has not been valid ated for patie nts under the age of 18. If test resul ts are displ ayed for a patie nt under the age of 18, disre wandy that value . Not Available [facility] [address] [place] [address], [address], 08/18/2024 22:08:03 08/18/20 24 08/18/2024 COMP. METAB OLIC PANEL (14) BUN/creatini ne ratio 13 9-23 Not Available [facility] [address] [place], [address], 08/18/2024 22:08:03 08/18/20 24 08/18/2024 COMP. METAB OLIC PANEL (14) sodium 141 mmol/ L 134-14 4 Not Available [facility] [address] [place] [address], [address], 08/18/2024 22:08:03 08/18/20 24 08/18/2024 COMP. METAB OLIC PANEL (14) potassium 4.2 mmol/ L 3.5-5. 2 Not Available [facility] [address] [place] [address], [address], 08/18/2024 22:08:03 08/18/20 24 08/18/2024 COMP. METAB OLIC PANEL (14) chloride 104 mmol/ L 96-106 Not Available [facility] [address] [place], [address], 08/18/2024 22:08:03 08/18/20 24 08/18/2024 COMP. METAB OLIC PANEL (14) carbon dioxide, total 27 mmol/ L 20-29 Not Available [facility] [address] [place], [address], 08/18/2024 22:08:03 08/18/20 24 08/18/2024 COMP. METAB OLIC PANEL (14) calcium 9.8 mg/dL 8.7-10 .2 Not Available [facility] [address] [place], [address], 08/18/2024 22:08:03 08/18/20 24 08/18/2024 COMP. METAB OLIC PANEL (14) protein, total 7.3 g/dL 6.0-8. 5 Not Available [facility] [address] [place], [address], 08/18/2024 22:08:03 08/18/20 24 08/18/2024 COMP. METAB OLIC PANEL (14) albumin 4.2 g/dL 3.8-4. 9 Not Available [facility] [address] [place], [address], 08/18/2024 22:08:03 08/18/20 24 08/18/2024 COMP. METAB OLIC PANEL (14) globulin, total 3.1 g/dL 1.5-4. 5 Not Available [facility] [address] [place], [address], 08/18/2024 22:08:03 08/18/20 24 08/18/2024 COMP. METAB OLIC PANEL (14) A/G ratio 1.4 1.2-2. 2 Not Available [facility] [address] [place], [address], 08/18/2024 22:08:03 08/18/20 24 08/18/2024 COMP. METAB OLIC PANEL (14) bilirubin, total 0.4 mg/dL 0.0-1. 2 Not Available [facility] [address] [place], [address], 08/18/2024 22:08:03 08/18/20 24 08/18/2024 COMP. METAB OLIC PANEL (14) alkaline phosphatase 105 IU/L 44-121 Not Available [facility] Department [address] [place], [address], 08/18/2024 22:08:03 08/18/20 24 08/18/2024 COMP. METAB OLIC PANEL (14) AST (SGOT) 14 IU/L 0-40 Not Available [facility] Department [address] [place], [address], 08/18/2024 22:08:03 08/18/2008/18/2024 COMP. METAB OLIC PANEL (14) ALT (SGPT) 10 IU/L 0-32 Not Available [facility] Department [address] [place], [address], 08/18/2024 22:08:03 08/18/2008/18/2024 CBC WITH DIFFE RENTI AL/PL ATELE T WBC 5.2 x10e3 /uL 3.4-10 .8 Not Available [facility] [address] [place], [address], 08/18/2024 22:08:05 08/18/2008/18/2024 CBC WITH DIFFE RENTI AL/PL ATELE T RBC 4.11 x10e6 /uL 3.77-5 .28 Not Available [facility] [address] [place], [address], 08/18/2024 22:08:05 08/18/2008/18/2024 CBC WITH DIFFE RENTI AL/PL ATELE T hemoglobin 12.7 g/dL 11.1-1 5.9 Not Available [facility] [address] [place], [address], 08/18/2024 22:08:05 08/18/20 24 08/18/2024 CBC WITH DIFFE RENTI AL/PL ATELE T hematocrit 38.6 % 34.0-4 6.6 Not Available [facility] [address] [place], [address], 08/18/2024 22:08:05 08/18/2008/18/2024 CBC WITH DIFFE RENTI AL/PL ATELE T MCV 94 fL 79-97 Not Available [facility] [address] [place], [address], 08/18/2024 22:08:05 08/18/20 24 08/18/2024 CBC WITH DIFFE RENTI AL/PL ATELE T MCH 30.9 pg 26.6-3 3.0 Not Available [facility] [address] [place], [address], 08/18/2024 22:08:05 08/18/20 24 08/18/2024 CBC WITH DIFFE RENTI AL/PL ATELE T MCHC 32.9 g/dL 31.5-3 5.7 Not Available [facility] [address] [place], [address], 08/18/2024 22:08:05 08/18/20 24 08/18/2024 CBC WITH DIFFE RENTI AL/PL ATELE T RDW 12.5 % 11.5-1 4.5 Not Available [facility] [address] [place], [address], 08/18/2024 22:08:05 08/18/2008/18/2024 CBC WITH DIFFE RENTI AL/PL ATELE T platelets 361 x10e3 /uL 150-45 0 Not Available [facility] [address] [place], [address], 08/18/2024 22:08:05 08/18/20 24 08/18/2024 CBC WITH DIFFE RENTI AL/PL ATELE T neutrophils 61 % notest b. Not Available [facility] [address] [place], [address], 08/18/2024 22:08:05 08/18/20 24 08/18/2024 CBC WITH DIFFE RENTI AL/PL ATELE T lymphs 28 % notest b. Not Available [facility] [address] [place], [address], 08/18/2024 22:08:05 08/18/2008/18/2024 CBC WITH DIFFE RENTI AL/PL ATELE T monocytes 8 % notest b. Not Available [facility] [address] [place], [address], 08/18/2024 22:08:05 08/18/20 24 08/18/2024 CBC WITH DIFFE RENTI AL/PL ATELE T eos 2 % notest b. Not Available [facility] [address] [place], [address], 08/18/2024 22:08:05 08/18/2008/18/2024 CBC WITH DIFFE RENTI AL/PL ATELE T basos 1 % notest b. Not Available [facility] [address] [place], [address], 08/18/2024 22:08:05 08/18/2008/18/2024 CBC WITH DIFFE RENTI AL/PL ATELE T neutrophils (absolute) 3.1 x10e3 /uL 1.4-7. 0 Not Available [facility] [address] [place], [address], 08/18/2024 22:08:05 08/18/20 24 08/18/2024 CBC WITH DIFFE RENTI AL/PL ATELE T lymphs (absolute) 1.4 x10e3 /uL 0.7-3. 1 Not Available [facility] [address] [place], [address], 08/18/2024 22:08:05 08/18/20 24 08/18/2024 CBC WITH DIFFE RENTI AL/PL ATELE T monocytes(ab solute) 0.4 x10e3 /uL 0.1-0. 9 Not Available [facility] [address] [place], [address], 08/18/2024 22:08:05 08/18/2008/18/2024 CBC WITH DIFFE RENTI AL/PL ATELE T eos (absolute) 0.1 x10e3 /uL 0.0-0. 4 Not Available [facility] Department [address] [place], [address], 08/18/2024 22:08:05 08/18/20 24 08/18/2024 CBC WITH DIFFE RENTI AL/PL ATELE T baso (absolute) 0.1 x10e3 /uL 0.0-0. 2 Not Available [facility] Department [address] [place], [address], 08/18/2024 22:08:05 08/18/20 24 08/18/2024 CBC WITH DIFFE RENTI AL/PL ATELE T immature granulocytes 0.2 % notest b. Not Available [facility] Department [address] [place], [address], 08/18/2024 22:08:05 08/18/20 24 08/18/2024 CBC WITH DIFFE RENTI AL/PL ATELE T immature grans (abs) 0.0 x10e3 /uL 0.0-0. 1 Not Available [facility] Department [address] [place], [address], 08/18/2024 22:08:05 [id number]|2025-03-14 13:50:00|2025-03-14 13:50:00|XMS_ITS|BKG DAEMON|External Medical Summaries|[id number]|" Data Portability Created on: March 14, 2025 Lenore Medellin .[id number] : 1975 Sex: Female Author Organization [place] - [facility], Main Office Address [address] [place] [id number] Care Team Providers Care Retail Sales Manager Name Role Phone CANDIDA CASAS Primary Care Provider CANDIDA CASAS Referring Provider [phone] Assessment Encounter Date Assessment Date Assessment LastModified [...] spent in treatment patient half of this iqip-sk-shmw conversation Not available 02/04/2023 10:36:27 04/03/2023 04/03/2023 [...] radicular symptoms, she would be referred for medical billing and coding specialist evaluation of that problem.The Medrol Dosepak we are providing may give her some relief if she does have radicular symptoms. I will see her back after the cervical spine MRI scan. 40 minutes were spent total care this patient more than half the time spent in oaep-am-ymwr care. Not available 05/04/2023 13:37:00 Plan of Treatment Reminders Order Date Submit Date Provider Last Modified By Organization Details Last Modified Time Details Appointments None recorded. Lab C-reactive protein, quantitativ e, serum or plasma 2022 023 [email or web address] Not available 3 15:42:52 ESR (erythrocyt e sedimentati on rate), blood 2022 023 [email or web address] Not available 3 15:42:52 rf (rheumatoid factor) + anti-ccp abs, serum 2022 023 [email or web address] Not available 3 15:42:52 KHUSHI (antinuclea r antibodies) screen, serum 2022 023 [email or web address] Not available 3 23:08:20 CBC w/ auto diff 2022 023 [email or web address] Not available 3 12:30:35 Referral None recorded. Procedures injection/a spiration joint/bursa (PROC) - in office procedure, administere d by provider 2022 023 [email or web address] In-Office Order, Internal Use Only DO Not Attach Compendium DO Not Attach Compendium, Do Not Delete/merge, [address] 3 10:01:07 Surgeries None recorded. Imaging CT, sinuses, w/o contrast [address] [facility], [address] [address], [facility], [place], [address], 5 10:29:26 XR, hand 2022 023 [email or web address] [facility] [place], [address] [facility] [address], [place], [address], 3 13:47:21 Medication Orders mupirocin 2 % topical ointment 2024 025 [facility][id number], [address], [id number], 5 12:07:37 Medrol (Capo) 4 mg tablets in a dose pack 2022 023 [email or web address] [facility] #14669, [address], [id number], 5 09:24:27 Kenalog 10 mg/mL suspension for injection 2022 023 [email or web address] [facility] #87227, [address], [id number], 3 11:08:39 ropivacaine (PF) 5 mg/mL (0.5 %) injection solution 2022 023 [email or web address] [facility] #03558, [address] [facility] [address] [place] [address], [id number], 09:32:25 Mobic 15 mg tablet 2022 023 [email or web address] [facility] #56399, [address], [id number], 11:08:43 Patient TargetsNo targets recorded. Patient Instructions Encounter Date Encounter Id Patient Instructions Last Modified By Organization Details Last Modified Time 03/01/2025 [id number] discussed findin g of deviated septum and septal perforation with patient. She will see Dr. Vazquez on to discuss surgical options. She will also have a sinus CT completed to assess for any further sinus involvement. We will follow up when those results become available. [email or web address] Not available 03/01/2025 10:30:57 03/02/2025 [id number] we will treat th e septal ulcer so that a perforation repair will not likely fail. We will also await her sinus CT results [email or web address] Not available 03/02/2025 12:07:09 Reason for Referral None Reported. Results Created Date Observation Date Name Description Value Unit Range Abnormal Flag Note LastModifiedBy Organization Detail LastModifiedTime 02/05/20 23 XR, hand No observ ation record ed. [facility] [place] [address] [facility] [address], [place], [address], 02/04/2023 10:30:52 03/26/20 23 03/26/2023 US, mert xandie s No observ ation record ed. [address] [facility], [place], [address], 03/26/2023 15:55:09 03/26/20 23 03/26/2023 US, thyro id No observ ation record ed. [id number] [facility] [address] [place] [address], [place], [address], 03/26/2023 16:02:37 03/27/20 23 03/26/2023 elect romyo gram + nerve condu ction study No observ ation record ed. [email or web address] [facility] [address] [facility] [address], [place], [address], 03/31/2023 13:49:07 05/01/20 23 05/01/2023 MRI, cervi mal spine , w/o contr ast No observ ation record ed. [email or web address] [facility] [address] [facility] [address], [place], [address], 05/04/2023 09:02:04 Result Notes None recorded. Problems Name Problem SNOMED Code Status Onset Date Resolution Date Notes Provider Name and Address Organization Details Recorded Time Serum vitamin B12 below reference range 222382721 Active 2018 Not Available [facility] 3 20:24:19 Mixed anxiety and depressive disorder 489900367 Active 2018 Not Available [facility] 3 20:24:19 Low back pain 782491661 Active 2021 Not Available [facility] 3 20:24:19 Pain of left hip joint 1120032255633 00 Active 2021 Not Available [facility] 3 20:24:19 Trochanter ic bursitis of left hip 2299365640253 03 Active 2021 Not Available [facility] 3 20:24:19 Vitamin D deficiency 51520170 Active 2017 Not Available [facility] 3 20:24:19 Depressive disorder 11388472 Active Not Available [facility] 3 20:24:19 Eczema 63755556 Active 2020 Not Available [facility] 3 20:24:20 Multiple cysts of breast 498390489 Active 2017 Not Available [facility] 3 20:24:20 Pain of bilateral hands 0484247339453 9109 Active 2022 UMU Chavez null, [place] [facility] 3 09:35:30 Cervical radiculopa thy 15960644 Active 2022 Torie Max CMA null, [place] [facility] 3 16:07:58 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 28101533 Active 2022 Torie Max CMA null, [place] [facility] 3 15:24:43 Cervical disc disorder with radiculopa thy 645184946 Active 2022 Torie Max CMA null, [facility] 3 15:25:17 Chronic sinusitis 51239190 Active 2024 MARLENY Garcia [address] [facility] [address], [place], [address] , [facility] 5 10:28:50 Perforatio n of nasal septum 65570138 Active 2024 MARLENY Garcia [address] [facility] [facility] [address], [place], [address] , [facility] 5 10:25:39 Deviated nasal septum 758936029 Active 2024 MARLENY Garcia [address] [facility] [facility] [address], [place], [address] , [facility] 5 10:29:03 Problem Notes None recorded. Procedures Surgical History Date Name Laterality Status Provider Name and Address Organization Details Recorded Time repair of cleft palate completed Not Available [facility] 12/31/2022 20:23:14 Hip surgery completed Not Available [facility] 12/31/2022 20:23:14 Ear Tubes completed Brandi Jeronimo RN [facility] 03/01/2025 09:27:25 repair of nose completed Brandi Jeronimo RN [facility] 03/01/2025 09:27:41 Imaging Results Imaging Date Name Status LastModified by Organization Details LastModified Time 02/04/2023 XR, hand completed [facility] [place] [address], [place], [address], 02/04/2023 10:30:52 03/26/2023 US, duplex, pelvis completed [email or web address] [address], [place], [address], 03/26/2023 15:55:09 03/26/2023 US, thyroid completed [address], [address], 03/26/2023 16:02:37 03/26/2023 electromyogram + nerve conduction study completed [email or web address] [place] [address] [address], [address], 03/31/2023 13:49:07 05/01/2023 MRI, cervical spine, w/o contrast completed [email or web address] [address], [address], 05/04/2023 09:02:04 Procedure Notes None recorded. Medical Equipment None Reported. Allergies Allergen ID Allergen Name Allergen Category Reaction Reaction Severity Criticality Documentation Date Start Date Code Code System Note Provider Name and Address Organization Details Recorded Time 84119 Product containin g penicilli n (product) medicatio n Not available Not available Not available 12/31/2022 05329 8001 SNOMED Not Available [facility] 3 20:26:39 41828 erythromy eulalia medicatio n Not available Not available Not available 12/31/2022 4053 RxNorm Not Available [facility] 3 20:26:40 Medications Name Sig Start Date Stop Date Status Note LastModified by Organization Details LastModified Time venlafaxine ER 37.5 mg capsule,ext ended release 24 hr TAKE 1 CAPSULE BY MOUTH IN THE MORNING. CONTINUE 150 MG AT NIGHT 03/01 completed Not Available Not Available Not Available [...] BY MOUTH EVERY DAY FOR 90 DAYS 03/01 completed Not Available Not Available Not Available [...] FOR 2 WEEKS DIRECTED BY PRESCRIBE R 03/01 completed Not Available Not Available Not Available clindamycin HCl 150 mg capsule 04/04 completed Not Available Not Available Not Available venlafaxine ER 150 mg capsule,ext ended release 24 hr TAKE 1 CAPSULE BY MOUTH EVERY DAY active Not Available Not Available No t Available metronidazo le 500 mg tablet TAKE 1 TABLET BY MOUTH TWICE DAILY FOR 7 DAYS 03/01 completed Not Available Not Available Not Available omeprazole 40 mg capsule,del ayed release TK 1 C PO QD 11/15 completed Not Available Not Available Not Available triamcinolo ne acetonide 0.1 % topical cream APPLY A THIN LAYER TO THE AFFECTED AREA(S) BY TOPICAL ROUTE 2 TIMES PER DAY 03/01 completed Not Available Not Available Not Available alprazolam 0.25 mg tablet Take 1 [...] suspension for injection in office 04/03 completed ND: 0003- 0494- 20 Not Available Not Available Not Available doxycycline monohydrate 100 mg capsule TAKE 1 CAPSULE BY MOUTH TWICE DAILY FOR 10 DAYS 03/01 completed Not Available Not Available Not Available ranitidine 150 mg tablet TK 1 T PO QD FOR 30 DAYS 01/14 /2021 completed Not Available Not Available Not Available [...] completed Not Available Not Available Not Available mupirocin 2 % topical ointment APPLY A SMALL AMOUNT TO THE AFFECTED AREA BY TOPICAL ROUTE 3 TIMES PER DAY 2024 active Not Available Not Available Not Avai lable ergocalcife rol (vitamin D2) 1,250 mcg (50,000 unit) capsule TAKE 1 CAPSULE BY MOUTH EVERY WEEK 02/04 completed Not Available Not Available Not Available azelastine 137 mcg (0.1 %) nasal spray USE 2 SPRAYS IN EACH NOSTRIL TWICE DAILY NEEDED 03/01 completed Not Available Not Available Not Available estradiol 0.01% (0.1 mg/gram) vaginal cream INSERT 1 APPLICATO RFUL VAGINALLY 2 TIMES A WEEK 03/01 completed Not Available Not Available Not Available methylpredn isolone 4 mg tablets in a dose pack FOLLOW PACKAGE DIRECTION S 03/01 completed Not Available Not Available Not Available albuterol sulfate HFA 90 mcg/actuati on [...] 1 SPRAY IN EACH NOSTRIL EVERY DAY 03/01 completed Not Available Not Available Not Available [...] APPLY VASELINE 2 TIMES DAILY. REPEAT NEEDED 03/01 completed Not Available Not Available Not Available [...] Not Available Not Available Not Available June 11/21 () 05/19 completed Not Available Not Available Not Available lidocaine (PF) 5 mg/mL (0.5 %) injection solution Take 20 mg by injection route. 08/20 completed Not Available Not Available Not Available ropivacaine (PF) 5 mg/mL (0.5 %) injection solution in office 03/01 completed [facility] [phone] Not Available Not Available Not Available Myrbetriq 25 mg tablet,exte nded release Take 1 tablet every day by oral route. 10/11 completed Not Available Not Available Not Available Aurovela Fe - () 1 mg-20 mcg (21)/75 mg (7) tablet TK 1 T PO QD 11/15 completed Not Available Not Available Not Available Vitals Date Recorded Body height Provider Name an d Address Organization Details Last Updated DateTime 08/20/2022 152.4 cm Not Available [facility] 20:23:21 Date Recorded Body height Provider Name an d Address Organization Details Last Updated DateTime 02/04/2023 152.4 cm UMU Chavez [place] [facility] 02/04/2023 09:34:21 Date Recorded Body height Body mass index (BMI) Body weight Provider Name and Address Organization Details Last Updated DateTime 04/03/2023 157.48 cm 25.6 kg/m2 07072.93 g UMU Chavez [facility] 04/03/2023 11:41:49 Date Recorded Body weight Body mass index (BMI) Body height Body temperature Provider Name and Address Organization Details Last Updated DateTime 03/01/2025 32635.81 g 25.8 kg/m2 157.48 cm 97.7 [degF] Brandi Jeronimo RN [facility] 03/01/2025 09:32:09 Date Recorded Body height Body mass index (BMI) Body weight Body temperature Provider Name and Address Organization Details Last Updated DateTime 03/02/2025 157.48 cm 25.6 kg/m2 09136.93 g 97.7 [degF] Brandi Jeronimo RN [facility] 03/02/2025 11:41:18 Social History None recorded. Functional Status Question Answer Note LastModified by [employer] ion Details LastModified Time What is your level of alcohol consumption? Occasional [id number] Information not available 12/31/2022 Mental Status None recorded. Family History Relationship Description Onset Age of this Age Resolved Age Notes LastModified by Organization Details LastModified Time Father Family history of stroke [id number] Not available 12/31/2022 20:23:14 Unspecified Relation Family history of malignant neoplasm mom side of the family [id number] Not available 12/31/2022 20:23:14 Unspecified Relation Diabetes mellitus dad side of the family [id number] Not available 12/31/2022 20:23:15 Unspecified Relation Myocardial infarction dad side of the family [id number] [id number] Not available 12/31/2022 20:23:15 Notes:BROTHER: NASAL SURGERY , SISTER: SEPTOPLASTY Medical History Condition Response BLINDNESS N KIDNEY [...] HAVE YOU BEEN HOSPITALIZED OR SEEN IN [facility] ER IN THE PAST YEAR ? N BURSITIS [...] virus, quadrivalent, preservative 1 completed Not Available [facility] 01/07/2023 11:09:34 Influenza, split virus, quadrivalent, preservative 8 completed Not Available [facility] 01/07/2023 11:09:34 Influenza, split virus, quadrivalent, PF 1 completed Not Available [facility] 01/07/2023 11:09:34 Influenza, split virus, quadrivalent, PF 8 completed Not Available [facility] 01/07/2023 11:09:34 Past Encounters Encounter ID Performer Location Encounter Start Date Encounter Closed Date Diagnosis/Indication Diagnosis SNOMED-CT Code Diagnosis ICD10 Code Diagnosis Note [id number] Tavo Ko MD [facility] [place] [address] [place] [address] 04/04/2022 00:00:00 04/05/2022 13:04:40 [id number] Tavo Ko MD [facility] [place] [address] [place] [address] 05/30/2022 00:00:00 05/30/2022 12:40:58 [id number] Tavo Ko MD [facility] [place] [address] [place] [address] 08/20/2022 00:00:00 08/20/2022 12:29:30 [id number] Tavo Ko MD [facility] [place] [address] [place] [address] 02/04/2023 09:31:02 02/04/2023 13:47:21 Pain of bilateral hands 0589820391 [id number] M79.641 M79.642 [id number] Tavo Ko MD [facility] [place] [address] [place] [address] 04/03/2023 10:53:20 04/06/2023 09:54:36 Pain of bilateral hands 3039456661 [id number] M79.641 M79.688 [id number] Jay Winter MD [facility] [place] [address] [place] [address] 03/01/2025 09:17:38 03/01/2025 10:31:33 Perforation of nasal septum 05602670 J34.89 Chronic sinusitis 431750 00 J32.9 Deviated nasal septum 12 0261737 J34.2 Patient will be seeing Dr. Winter to discuss surgical options [id number] Jay Winter MD [facility] [place] [address] [place] [address] 03/02/2025 11:31:32 03/06/2025 07:08:39 Perforation of nasal septum 56540003 J34.89 Deviated nasal septum 12 4147525 J34.2 Health Concerns Section Related Observation LastModified by Organization Detai ls LastModified Time None Recorded Concern Status LastModified by Organization Details LastModified Time None Recorded Advance Directives Directive None Recorded Payers Encounter Date Sequence Insurance Name Policy Number Policy Ocasio
== END 2025-03-14 13:27 | disposition home or self-care (01) ==
PROVIDERS: PCP Physician Assistant; Visit Provider Otolaryngology
DX: J32.0 Chronic maxillary sinusitis (principal)
CPT/HCPCS: 70486

== ENCOUNTER 2025-04-12 12:30 | Outpatient (RCR) | payer OTHER, SELFPAY ==
--- NOTE | 2025-03-03 09:13 | OTOPEVAL1 ---
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 She presents today wearing bilateral forearm based thumb spica splints. She reports she has worn some sort of wrist and thumb support for about 2 years. She reports receiving 2 rounds of injections to bilateral 1st CMC joints and carpal tunnel and reports not feeling much relief from this. She reports she is scheduled for cervical surgery to relieve the nerve in June with Dr. Oneil . Per EMR he has diagnosed her with C6-C7 radiculopathy. She is reporting constant numbness/tingling constantly, left worse than right. She reports constant pain in the base of the thumbs, left worse than right. She reports difficulties with ADLs - washing her hair, pulling up pants. Reports she has modified the way she dresses and does ADLs due to pain with pinching and gripping. Her boyfriend has to do most of the cooking and dishes. 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 She reports having pain and difficulties with her hands for years and has not had any formal therapy. 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 Issued active ROM HEP and tendon glides, which brought tears to her eyes. She responded well to paraffin. Educated on HEP, the benefits of gentle ROM, and use of heat/ice for relief. Continued skilled OT indicated for orthotic fabrication, use of modalities, manual therapy, adaptive ADL techniques, HEP progression, and therapeutic exercise to facilitate reduced pain and improved functional hand use bilaterally for ADLs. Plan of Care Interventions Therapeutic Exercise,Manual Therapy,Neuro Re- education,Therapeutic Activities,Hot Pack/Cold Pack,Check Out for Orthotic/Prosthetic,Ultrasound, Paraffin OT Services Indicated Yes Treatment Frequency and 2x/week for 8 visits Duration These treatments will address the objective and functional deficits as defined above. The patient will be advanced safely and appropriately in order for the patient to progress towards his/her prior level of function. Additional exercises will be introduced and as well as a comprehensive home exercise program upon discharge, if needed, ?to ensure carryover of functional gains achieved in the clinic. This treatment plan has been reviewed and agreement upon by the patient.
--- NOTE | 2025-03-03 09:13 | OPREHPOC ---
Outpatient Therapy Plan of Care This is a Multidisciplinary Plan of Care that may contain components documented by all disciplines (PT, OT, and ST.) OT Problem 1 OT Problem #1 Knowledge Deficit OT Goal 1 Goal / Goal Update Patient to be indepenent with instructed materials . Target Visit 8 OT Problem 2 OT Problem #2 Pain OT Goal 1 Goal / Goal Update Patient to report reduced pain in bilateral hands/ thumbs during ADLs (bathing, dressing, dishes): 1. left hand to reduce to 5/10 with ADLs 2. 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 Target Visit 8 OT Goal 2 Goal / Goal Update Increase functional flexibility of the structures through the carpal tunnel (median nerve and flexor tendons) to improve functional finger mobility and strength in prep for metal fabricator helper strengthening as measured by being able to progress to 10 reps of median nerve glides without a rest break bilaterally. OT Problem 4 OT Problem #4 Impaired Strength OT Goal 1 Goal / Goal Update Patient to be able to progress functional wrist strengthening to 1 lb against gravity in all planes to improve strength for ADLs. 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 Target Visit 8
--- NOTE | 2025-04-19 13:59 | PCOTNOTE ---
Patient did not show up for scheduled appointment this date. Message was left on the voicemail to reschedule if able.
--- NOTE | 2025-05-08 08:59 | OTOPDC ---
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 She presents today wearing bilateral forearm based thumb spica splints. She reports she has worn some sort of wrist and thumb support for about 2 years. She reports receiving 2 rounds of injections to bilateral 1st CMC joints and carpal tunnel and reports not feeling much relief from this. She reports she is scheduled for cervical surgery to relieve the nerve in June with Dr. Oneil. Per EMR he has diagnosed her with C6-C7 radiculopathy. 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 Therapy attendance was poor. 2 cancelations and 1 no-show. She attended the initial evaluation and 2 follow up appointments. Patient requested to be discharged due to transportation issues. Therapy during the appointments was also very limited due to the severity of her pain. Limited tolerance to manual treatment and gentle active ROM. She had temporarily relief from the paraffin treatment. Discharging this date per patient request. No formal reassessment was completed.
== END 2025-05-08 10:57 | disposition home or self-care (01) ==
LOC: ANHOT 12:30
PROVIDERS: PCP Physician Assistant; Visit Provider Plastic Surgery
DX: M81.0 Age-related osteoporosis without current pathological fracture (principal)
CPT/HCPCS: 97018; 97110; 97140; 97166

== ENCOUNTER 2025-04-12 13:19 | Outpatient (CLI) | payer OTHER, SELFPAY ==
--- NOTE | ~2025-04-12 | CT_ITS ---
Pre and postcontrast Head CT History: Midline shift of the brain Technique: Axial imaging of the brain was performed prior to and following intravenous administratio n of 100 cc of Omnipaque 350 contrast material. Dose reduction technique was used on this scan by uti lizing automated exposure control and iterative reconstruction technique. The dose-length product (DL P) was 1210.67 mGy-cm. Findings: There is no evidence of intracranial hemorrhage, mass lesion, or acute infarct. Brain par enchyma appears normal. The ventricles and subarachnoid spaces are normal in size. The calvarium ap pears normal. The visualized paranasal sinuses and mastoid air cells are clear. No abnormal postcontrast enhancement identified. Impression: No significant abnormality seen. Reviewed, dictated and finalized at [facility]. Impression: No significant abnormality seen.
--- OUTSIDE RECORDS SUMMARY | 2025-04-12 15:31 | XMS_ITS | Data Portability ---
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 Not available 12/30/2023 10:39:05 Plan of Treatment Reminders Order Date Submit Date Provider Last Modified By Organization Details Last Modified Time Details Appointments ANY 15 2024 02:30P M LINDA JOHN Not available Not available Not available Lab pro BNP (pro B-type natriuret ic peptide), serum or plasma 2023 [facility], [address] [facility], [address], [place], [address], 08/19/2024 11:17:12 CBC w/ auto diff 2023 024 [facility], [facility], [address], [place], [address], 08/18/2024 22:08:05 iron + total iron-bind ing capacity (TIBC), serum 2023 024 [facility], [address], [address], [place], [address], 08/19/2024 11:17:13 CMP, serum or plasma 2023 024 [facility], [address], [address], [place], [address], 08/18/2024 22:08:03 CMP, serum or plasma 2023 024 [facility], [address], [address], [place], [address], 12/30/2023 21:08:12 CBC w/ auto diff 2023 024 [facility], [address], [address], [place], [address], 12/30/2023 21:08:13 lipid panel, serum 2023 024 [facility], [address], [address], [place], [address], 12/30/2023 21:08:12 HbA1c (hemoglob in A1c), blood 2023 024 [facility], [address], [address], [place], [address], 12/31/2023 12:12:14 TSH + free T4, serum 2023 024 [facility], [address], [address], [place], [address], 12/31/2023 12:12:13 pathology study - 1 small mole on right chest near axilla w/o concernin g features 2022 023 [facility], [address] [facility], [address], [place], [address], 05/07/2023 11:13:28 Referral cardiolog ist referral 2023 [email or web address] Tony Rivera DO, [address], [address], [place], [address], 08/18/2024 12:44:27 podiatris t referral 2023 024 [email or web address] Ilda Dao DPM, [address], [address], [place], [address], 03/17/2024 09:55:31 gastroent erologist referral 2023 SANTIAGO Branch MD, [address] [place], [address], 02/29/2024 13:45:22 Procedures None recorded. Surgeries None recorded. Imaging US, abdomen, complete 2023 [email or web address] [facility] ([facility]), [address], [place], [address], 09/15/2024 07:51:57 Medication Orders doxycycli ne monohydra te 100 mg capsule 2023 [place] [facility][id number] [address] [facility] [address] [place] [address], [id number], 07/26/2024 15:58:55 mometason e 0.1 % topical cream 2023 024 [place] [facility] #35071 [address] [facility] [address] [place] [address], [phone], 12/30/2023 10:41:25 Miralax 17 gram/dose oral powder 2023 024 [facility] #69605, [address] [place] [address], [id number], 12/30/2023 09:21:45 silver sulfadiaz ine 1 % topical cream [address] [facility] #31046, [address] [facility] [address] [place] [address], [id number], 12/30/2023 09:09:48 doxycycli ne hyclate 100 mg capsule [address] [facility] #48912, [address] [facility] [address] [place] [address], [id number], 12/30/2023 09:04:48 pimecroli mus 1 % topical cream 2023 024 [facility] #31944, [address], [id number], 11/26/2023 13:21:39 venlafaxi ne ER 37.5 mg capsule,e xtended release 24 hr 2023 024 [facility] #10793, [address], [phone], 11/26/2023 13:25:16 Patient TargetsNo targets recorded. 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 Kym t Mater ial submi tted: . chest - RIGHT CHEST . Modif iers: right Not Available [facility] ([facility]) [address] [facility], [place], [address], 05/07/2023 11:13:28 04/30/20 23 05/07/2023 PATHO LOGY REPOR T . Commen t Clini mal histo ry: . DISOR ASHLYN OF THE SKIN AND SUBCU TANEO US TISSU E, UNSPE CIFIE D Not Available [facility] ([facility]) [address] [facility], [place], [address], 05/07/2023 11:13:28 04/30/2005/07/2023 PATHO LOGY REPOR T . Commen t Diagn osis: COMPO UND NEVUS ; IRRIT ATED. GEA 05/06 1152 Local Not Available [facility] ([facility]) [address] [place], [address], 05/07/2023 11:13:28 04/30/20 23 05/07/2023 PATHO LOGY REPOR T . Commen t Aisha evangelista d: . Vu chang MD, [place] topat holog ist Not Available [facility] ([facility]) [address] [facility], [place], [address], 05/07/2023 11:13:28 04/30/20 23 05/07/2023 PATHO LOGY REPOR T . Commlexi t Gross descr iptio n: . 1 Conta iner, forma reza-f illed , label ed with patie nt [...] ENTIR GORDON IN CASSE TTE(S ) A1. SHEILA/K YE 05/04 0944 Local Not Available [facility] ([facility]) [address] [facility], [place], [address], 05/07/2023 11:13:28 04/30/20 23 05/07/2023 PATHO LOGY REPOR T . Commlexi t Patho logis t provi ded ICD-1 0: D22.5 Not Available [facility] ([facility]) [address] [facility], [place], [address], 05/07/2023 11:13:28 04/30/20 23 05/07/2023 PATHO LOGY REPOR T . Commlexi t CPT . 63391 1 Not Available [facility] ([facility]) [address] [facility], [place], [address], 05/07/2023 11:13:28 12/30/19 24 12/30/2023 LIPID PANEL cholesterol, total 188 mg/dL 100-19 9 Not Available [facility] Department [address] [place], [address], 12/30/2023 21:08:12 12/30/19 24 12/30/2023 LIPID PANEL triglyceride s 82 mg/dL 0-149 Not Available [facility] Department [address] [place], [address], 12/30/2023 21:08:12 12/30/19 24 12/30/2023 LIPID PANEL HDL cholesterol 48 mg/dL 40-999 Not Available [facility] Department [address] [place], [address], 12/30/2023 21:08:12 12/30/19 24 12/30/2023 LIPID PANEL VLDL cholesterol mal 16 mg/dL 5-40 Not Available [facility] Department [address] [place] [address], [address], 12/30/2023 21:08:12 12/30/19 24 12/30/2023 LIPID PANEL LDL chol calc ([facility]) 135 mg/dL 0-99 above high normal Not Available [facility] Department [address] [place] [address], [address], 12/30/2023 21:08:12 12/30/19 24 12/30/2023 COMP. METAB OLIC PANEL (14) glucose 93 mg/dL 70-99 Not Available [facility] Department [address] [place], [address], 12/30/2023 21:08:12 12/30/19 24 12/30/2023 COMP. METAB OLIC PANEL (14) BUN 9 mg/dL 6-24 Not Available [facility] Department [address] [place], [address], 12/30/2023 21:08:12 12/30/19 24 12/30/2023 COMP. METAB OLIC PANEL (14) creatinine 0.84 mg/dL 0.76-1 .27 Not Available [facility] Department [address] [place] [address], [address], 12/30/2023 21:08:12 12/30/19 24 12/30/2023 COMP. METAB OLIC PANEL (14) eGFR 85 >=60 Units for eGFR value s are mL/mi n/1.7 3 The eGFR Calcu latio n has not been valid ated for patie nts under the age of 18. If test resul ts are displ ayed for a patie nt under the age of 18, disre wandy that value . Not Available [facility] Department [address] [place] [address], [address], 12/30/2023 21:08:12 12/30/19 24 12/30/2023 COMP. METAB OLIC PANEL (14) BUN/creatini ne ratio 11 9-23 Not Available [facility] Department [address] [place] [address], [address], 12/30/2023 21:08:12 12/30/19 24 12/30/2023 COMP. METAB OLIC PANEL (14) sodium 140 mmol/ L 134-14 4 Not Available [facility] Department [address] [place] [address], [address], 12/30/2023 21:08:12 12/30/19 24 12/30/2023 COMP. METAB OLIC PANEL (14) potassium 3.9 mmol/ L 3.5-5. 2 Not Available [facility] Department [address] [place] [address], [address], 12/30/2023 21:08:12 12/30/19 24 12/30/2023 COMP. METAB OLIC PANEL (14) chloride 104 mmol/ L 96-106 Not Available [facility] Department [address] [place] [address], [address], 12/30/2023 21:08:12 12/30/19 24 12/30/2023 COMP. METAB OLIC PANEL (14) carbon dioxide, total 24 mmol/ L 20-29 Not Available [facility] Department [address] [place] [address], [address], 12/30/2023 21:08:12 12/30/19 24 12/30/2023 COMP. METAB OLIC PANEL (14) calcium 9.3 mg/dL 8.7-10 .2 Not Available [facility] Department [address] [place], [address], 12/30/2023 21:08:12 12/30/19 24 12/30/2023 COMP. METAB OLIC PANEL (14) protein, total 7.0 g/dL 6.0-8. 5 Not Available [facility] Department [address] [place], [address], 12/30/2023 21:08:12 12/30/19 24 12/30/2023 COMP. METAB OLIC PANEL (14) albumin 4.1 g/dL 3.9-4. 9 Not Available [facility] Department [address] [place] [address], [address], 12/30/2023 21:08:12 12/30/19 24 12/30/2023 COMP. METAB OLIC PANEL (14) globulin, total 2.9 g/dL 1.5-4. 5 Not Available [facility] Department [address] [place], [address], 12/30/2023 21:08:12 12/30/19 24 12/30/2023 COMP. METAB OLIC PANEL (14) A/G ratio 1.0 1.2-2. 2 below low normal Not Available [facility] Department [address] [place] [address], [address], 12/30/2023 21:08:12 12/30/19 24 12/30/2023 COMP. METAB OLIC PANEL (14) bilirubin, total 0.2 mg/dL 0.0-1. 2 Not Available [facility] Department [address] [place], [address], 12/30/2023 21:08:12 12/30/19 24 12/30/2023 COMP. METAB OLIC PANEL (14) alkaline phosphatase 74 IU/L 44-121 Not Available [facility] Department [address] [place], [address], 12/30/2023 21:08:12 12/30/19 24 12/30/2023 COMP. METAB OLIC PANEL (14) AST (SGOT) 12 IU/L 0-40 Not Available [facility] Department [address] [place], [address], 12/30/2023 21:08:12 12/30/19 24 12/30/2023 COMP. METAB OLIC PANEL (14) ALT (SGPT) 11 IU/L 0-32 Not Available [facility] Department [address] [place], [address], 12/30/2023 21:08:12 12/30/19 24 12/30/2023 CBC WITH DIFFE RENTI AL/PL ATELE T WBC 5.6 x10e3 /uL 3.4-10 .8 Not Available [facility] Department [address] [place], [address], 12/30/2023 21:08:13 12/30/19 24 12/30/2023 CBC WITH DIFFE RENTI AL/PL ATELE T RBC 3.86 x10e6 /uL 3.77-5 .28 Not Available [facility] Department [address] [place], [address], 12/30/2023 21:08:13 12/30/19 24 12/30/2023 CBC WITH DIFFE RENTI AL/PL ATELE T hemoglobin 11.4 g/dL 11.1-1 5.9 Not Available [facility] Department [address] [place], [address], 12/30/2023 21:08:13 12/30/19 24 12/30/2023 CBC WITH DIFFE RENTI AL/PL ATELE T hematocrit 36.1 % 34.0-4 6.6 Not Available [facility] Department [address] [place], [address], 12/30/2023 21:08:13 12/30/19 24 12/30/2023 CBC WITH DIFFE RENTI AL/PL ATELE T MCV 94 fL 79-97 Not Available [facility] Department [address] [place], [address], 12/30/2023 21:08:13 12/30/19 24 12/30/2023 CBC WITH DIFFE RENTI AL/PL ATELE T MCH 29.5 pg 26.6-3 3.0 Not Available [facility] Department [address] [place], [address], 12/30/2023 21:08:13 12/30/19 24 12/30/2023 CBC WITH DIFFE RENTI AL/PL ATELE T MCHC 31.6 g/dL 31.5-3 5.7 Not Available [facility] Department [address] [place], [address], 12/30/2023 21:08:13 12/30/19 24 12/30/2023 CBC WITH DIFFE RENTI AL/PL ATELE T RDW 12.9 % 11.5-1 4.5 Not Available [facility] Department [address] [place], [address], 12/30/2023 21:08:13 12/30/19 24 12/30/2023 CBC WITH DIFFE RENTI AL/PL ATELE T platelets 346 x10e3 /uL 150-45 0 Not Available [facility] Department [address] [place], [address], 12/30/2023 21:08:13 12/30/19 24 12/30/2023 CBC WITH DIFFE RENTI AL/PL ATELE T neutrophils 47 % notest b. Not Available [facility] Department [address] [place], [address], 12/30/2023 21:08:13 12/30/19 24 12/30/2023 CBC WITH DIFFE RENTI AL/PL ATELE T lymphs 37 % notest b. Not Available [facility] Department [address] [place], [address], 12/30/2023 21:08:13 12/30/19 24 12/30/2023 CBC WITH DIFFE RENTI AL/PL ATELE T monocytes 10 % notest b. Not Available [facility] Department [address] [place], [address], 12/30/2023 21:08:13 12/30/19 24 12/30/2023 CBC WITH DIFFE RENTI AL/PL ATELE T eos 4 % notest b. Not Available [facility] Department [address] [place], [address], 12/30/2023 21:08:13 12/30/19 24 12/30/2023 CBC WITH DIFFE RENTI AL/PL ATELE T basos 1 % notest b. Not Available [facility] Department [address] [place], [address], 12/30/2023 21:08:13 12/30/19 24 12/30/2023 CBC WITH DIFFE RENTI AL/PL ATELE T neutrophils (absolute) 2.6 x10e3 /uL 1.4-7. 0 Not Available [facility] Department [address] [place], [address], 12/30/2023 21:08:13 12/30/19 24 12/30/2023 CBC WITH DIFFE RENTI AL/PL ATELE T lymphs (absolute) 2.1 x10e3 /uL 0.7-3. 1 Not Available [facility] Department [address] [place], [address], 12/30/2023 21:08:13 12/30/19 24 12/30/2023 CBC WITH DIFFE RENTI AL/PL ATELE T monocytes(ab solute) 0.6 x10e3 /uL 0.1-0. 9 Not Available [facility] Department [address] [place], [address], 12/30/2023 21:08:13 12/30/19 24 12/30/2023 CBC WITH DIFFE RENTI AL/PL ATELE T eos (absolute) 0.2 x10e3 /uL 0.0-0. 4 Not Available [facility] Department [address] [place], [address], 12/30/2023 21:08:13 12/30/19 24 12/30/2023 CBC WITH DIFFE RENTI AL/PL ATELE T baso (absolute) 0.1 x10e3 /uL 0.0-0. 2 Not Available [facility] Department [address] [place], [address], 12/30/2023 21:08:13 12/30/19 24 12/30/2023 CBC WITH DIFFE RENTI AL/PL ATELE T immature granulocytes 0.2 % notest b. Not Available [facility] Department [address] [place], [address], 12/30/2023 21:08:13 12/30/19 24 12/30/2023 CBC WITH DIFFE RENTI AL/PL ATELE T immature grans (abs) 0.0 x10e3 /uL 0.0-0. 1 Not Available [facility] Department [address] [place], [address], 12/30/2023 21:08:13 12/30/19 24 12/30/2023 CBC WITH DIFFE RENTI AL/PL ATELE T NRBC 0 % 0-0 Not Available [facility] Department [address] [place], [address], 12/30/2023 21:08:13 12/30/19 24 12/31/2023 TSH+F REE T4 TSH 2.060 uIU/m L 0.450- 4.500 Not Available [facility] ([facility]) [address] [facility], [place], [address], 12/31/2023 12:12:13 12/30/19 24 12/31/2023 TSH+F REE T4 T4,free(dire ct) 1.05 NG/dL 0.82-1 .77 Not Available [facility] ([facility]) [address] [facility], [place], [address], 12/31/2023 12:12:13 12/30/19 24 12/31/2023 HEMOG LOBIN A1C hemoglobin A1C 5.5 % 4.8-5. 6 Predi abete s: 5.7 - 6.4 Diabe claudia: >6.4 Glyce kathy contr ol for adult s with diabe claudia: <7.0 Not Available [facility] ([facility]) [address] [facility], [place], [address], 12/31/2023 12:12:14 08/18/20 24 08/18/2024 COMP. METAB OLIC PANEL (14) glucose 95 mg/dL 70-99 Not Available [facility] Department [address] [place], [address], 08/18/2024 22:08:03 08/18/20 24 08/18/2024 COMP. METAB OLIC PANEL (14) BUN 12 mg/dL 6-24 Not Available [facility] Department [address] [place], [address], 08/18/2024 22:08:03 08/18/20 24 08/18/2024 COMP. METAB OLIC PANEL (14) creatinine 0.88 mg/dL 0.76-1 .27 Not Available [facility] Department [address] [place], [address], 08/18/2024 22:08:03 08/18/20 24 08/18/2024 COMP. METAB OLIC PANEL (14) eGFR 80 >=60 Units for eGFR value s are mL/mi n/1.7 3 The eGFR Calcu latio n has not been valid ated for patie nts under the age of 18. If test resul ts are displ ayed for a patie nt under the age of 18, disre wandy that value . Not Available [facility] Department [address] [place] [address], [address], 08/18/2024 22:08:03 08/18/20 24 08/18/2024 COMP. METAB OLIC PANEL (14) BUN/creatini ne ratio 13 9-23 Not Available [facility] Department [address] [place], [address], 08/18/2024 22:08:03 08/18/20 24 08/18/2024 COMP. METAB OLIC PANEL (14) sodium 141 mmol/ L 134-14 4 Not Available [facility] Department [address] [place] [address], [address], 08/18/2024 22:08:03 08/18/20 24 08/18/2024 COMP. METAB OLIC PANEL (14) potassium 4.2 mmol/ L 3.5-5. 2 Not Available [facility] Department [address] [place], [address], 08/18/2024 22:08:03 08/18/20 24 08/18/2024 COMP. METAB OLIC PANEL (14) chloride 104 mmol/ L 96-106 Not Available [facility] Department [address] [place] [address], [address], 08/18/2024 22:08:03 08/18/20 24 08/18/2024 COMP. METAB OLIC PANEL (14) carbon dioxide, total 27 mmol/ L 20-29 Not Available [facility] Department [address] [place], [address], 08/18/2024 22:08:03 08/18/20 24 08/18/2024 COMP. METAB OLIC PANEL (14) calcium 9.8 mg/dL 8.7-10 .2 Not Available [facility] Department [address] [place] [address], [address], 08/18/2024 22:08:03 08/18/20 24 08/18/2024 COMP. METAB OLIC PANEL (14) protein, total 7.3 g/dL 6.0-8. 5 Not Available [facility] Department [address] [place], [address], 08/18/2024 22:08:03 08/18/20 24 08/18/2024 COMP. METAB OLIC PANEL (14) albumin 4.2 g/dL 3.8-4. 9 Not Available [facility] Department [address] [place], [address], 08/18/2024 22:08:03 08/18/2008/18/2024 COMP. METAB OLIC PANEL (14) globulin, total 3.1 g/dL 1.5-4. 5 Not Available [facility] Department [address] [place], [address], 08/18/2024 22:08:03 08/18/20 24 08/18/2024 COMP. METAB OLIC PANEL (14) A/G ratio 1.4 1.2-2. 2 Not Available [facility] Department [address] [place], [address], 08/18/2024 22:08:03 08/18/20 24 08/18/2024 COMP. METAB OLIC PANEL (14) bilirubin, total 0.4 mg/dL 0.0-1. 2 Not Available [facility] Department [address] [place], [address], 08/18/2024 22:08:03 08/18/20 24 08/18/2024 COMP. METAB OLIC PANEL (14) alkaline phosphatase 105 IU/L 44-121 Not Available [facility] Department [address] [place], [address], 08/18/2024 22:08:03 08/18/20 24 08/18/2024 COMP. METAB OLIC PANEL (14) AST (SGOT) 14 IU/L 0-40 Not Available [facility] Department [address] [place], [address], 08/18/2024 22:08:03 08/18/2008/18/2024 COMP. METAB OLIC PANEL (14) ALT (SGPT) 10 IU/L 0-32 Not Available [facility] Department [address] [place], [address], 08/18/2024 22:08:03 08/18/2008/18/2024 CBC WITH DIFFE RENTI AL/PL ATELE T WBC 5.2 x10e3 /uL 3.4-10 .8 Not Available [facility] Department [address] [place], [address], 08/18/2024 22:08:05 08/18/2008/18/2024 CBC WITH DIFFE RENTI AL/PL ATELE T RBC 4.11 x10e6 /uL 3.77-5 .28 Not Available [facility] Department [address] [place], [address], 08/18/2024 22:08:05 08/18/2008/18/2024 CBC WITH DIFFE RENTI AL/PL ATELE T hemoglobin 12.7 g/dL 11.1-1 5.9 Not Available [facility] Department [address] [place], [address], 08/18/2024 22:08:05 08/18/2008/18/2024 CBC WITH DIFFE RENTI AL/PL ATELE T hematocrit 38.6 % 34.0-4 6.6 Not Available [facility] Department [address] [place], [address], 08/18/2024 22:08:05 08/18/2008/18/2024 CBC WITH DIFFE RENTI AL/PL ATELE T MCV 94 fL 79-97 Not Available [facility] Department [address] [place], [address], 08/18/2024 22:08:05 08/18/20 24 08/18/2024 CBC WITH DIFFE RENTI AL/PL ATELE T MCH 30.9 pg 26.6-3 3.0 Not Available [facility] Department [address] [place], [address], 08/18/2024 22:08:05 08/18/2008/18/2024 CBC WITH DIFFE RENTI AL/PL ATELE T MCHC 32.9 g/dL 31.5-3 5.7 Not Available [facility] Department [address] [place], [address], 08/18/2024 22:08:05 08/18/2008/18/2024 CBC WITH DIFFE RENTI AL/PL ATELE T RDW 12.5 % 11.5-1 4.5 Not Available [facility] Department [address] [place], [address], 08/18/2024 22:08:05 08/18/20 24 08/18/2024 CBC WITH DIFFE RENTI AL/PL ATELE T platelets 361 x10e3 /uL 150-45 0 Not Available [facility] Department [address] [place], [address], 08/18/2024 22:08:05 08/18/20 24 08/18/2024 CBC WITH DIFFE RENTI AL/PL ATELE T neutrophils 61 % notest b. Not Available [facility] Department [address] [place], [address], 08/18/2024 22:08:05 08/18/20 24 08/18/2024 CBC WITH DIFFE RENTI AL/PL ATELE T lymphs 28 % notest b. Not Available [facility] Department [address] [place], [address], 08/18/2024 22:08:05 08/18/20 24 08/18/2024 CBC WITH DIFFE RENTI AL/PL ATELE T monocytes 8 % notest b. Not Available [facility] [address] [place], [address], 08/18/2024 22:08:05 08/18/20 24 08/18/2024 CBC WITH DIFFE RENTI AL/PL ATELE T eos 2 % notest b. Not Available [facility] [address] [place], [address], 08/18/2024 22:08:05 08/18/20 24 08/18/2024 CBC WITH DIFFE RENTI AL/PL ATELE T basos 1 % notest b. Not Available [facility] [address] [place], [address], 08/18/2024 22:08:05 08/18/20 24 08/18/2024 CBC WITH DIFFE RENTI AL/PL ATELE T neutrophils (absolute) 3.1 x10e3 /uL 1.4-7. 0 Not Available [facility] [address] [place], [address], 08/18/2024 22:08:05 08/18/20 24 08/18/2024 CBC WITH DIFFE RENTI AL/PL ATELE T lymphs (absolute) 1.4 x10e3 /uL 0.7-3. 1 Not Available [facility] [address] [place], [address], 08/18/2024 22:08:05 08/18/20 24 08/18/2024 CBC WITH DIFFE RENTI AL/PL ATELE T monocytes(ab solute) 0.4 x10e3 /uL 0.1-0. 9 Not Available [facility] [address] [place], [address], 08/18/2024 22:08:05 08/18/20 24 08/18/2024 CBC WITH DIFFE RENTI AL/PL ATELE T eos (absolute) 0.1 x10e3 /uL 0.0-0. 4 Not Available [facility] [address] [place], [address], 08/18/2024 22:08:05 08/18/20 24 08/18/2024 CBC WITH DIFFE RENTI AL/PL ATELE T baso (absolute) 0.1 x10e3 /uL 0.0-0. 2 Not Available [facility] [address] [place], [address], 08/18/2024 22:08:05 08/18/20 24 08/18/2024 CBC WITH DIFFE RENTI AL/PL ATELE T immature granulocytes 0.2 % notest b. Not Available [facility] [address] [place], [address], 08/18/2024 22:08:05 08/18/20 24 08/18/2024 CBC WITH DIFFE RENTI AL/PL ATELE T immature grans (abs) 0.0 x10e3 /uL 0.0-0. 1 Not Available [facility] [address] [place], [address], 08/18/2024 22:08:05 08/18/20 24 08/18/2024 CBC WITH DIFFE RENTI AL/PL ATELE T NRBC 0 % 0-0 Not Available [facility] [address] [place], [address], 08/18/2024 22:08:05 08/18/20 24 08/19/2024 NT-VA OBNP nt-probnp <36 pg/mL 0-249 The follo [...] enden t 300 pg/mL Not Available [facility] ([facility]) [address] [facility], [place], [address], 08/19/2024 11:17:12 08/18/20 24 08/19/2024 IRON AND TIBC iron bind.cap.(TI BC) 375 ug/dL 250-45 0 Not Available [facility] ([facility]) [address] [facility], [place], [address], 08/19/2024 11:17:13 08/18/2008/19/2024 IRON AND TIBC UIBC 296 ug/dL 131-42 5 Not Available [facility] ([facility]) [address] [facility], [place], [address], 08/19/2024 11:17:13 08/18/20 24 08/19/2024 IRON AND TIBC iron 79 ug/dL 27-159 Not Available [facility] ([facility]) [address] [facility], [place], [address], 08/19/2024 11:17:13 08/18/20 24 08/19/2024 IRON AND TIBC iron saturation 21 % 15-55 Not Available [facility] ([facility]) [address] [place], [address], 08/19/2024 11:17:13 05/01/20 23 05/01/2023 MRI, cervi mal spine , w/o contr ast No observ ation record ed. [address], [place], [address], 05/01/2023 14:52:17 09/21/20 23 09/21/2023 MAMMO , scree domenico, bilat eral No observ ation record ed. [address], [place], [address], 09/22/2023 10:21:45 08/11/20 24 08/11/2024 MAMMO , scree domenico, bilat eral No observ ation record ed. [address], [place], [address], 08/15/2024 08:38:30 02/11/20 25 02/10/2025 MAMMO , diagn ostic , digit al, bilat eral No observ ation record ed. [address], [place], [address], 02/13/2025 15:19:32 03/15/20 25 03/14/2025 CT, sinus es, w/o contr ast No observ ation record ed. [address], [place], [address], 03/24/2025 20:17:15 Result Notes None recorded. Problems Name Problem SNOMED Code Status Onset Date Resolution Date Notes Provider Name and Address Organization Details Recorded Time Posttraumat ic stress disorder 12557923 Active 2020 LINDA JOHN Attn: Raphael govea,[address] [place], [address], [place] [facility] 13:41:59 Left lower quadrant pain 984965539 Active 2020 LINDA JOHN Attn: Raphael govea,[address] [place], [address] [facility] 1 13:42:01 Osteoarthri tis of left hip joint 9788708407194 08 Active 2021 LINDA JOHN Attn: Raphael govea,[address] [place], [address], [place] [facility] 2 13:13:24 Burn of skin 123432815 Active 2023 LINDA JOHN Attn: Raphael govea,[address], [place], [address], [place] [facility] 4 13:10:19 Constipatio n 73733788 Active 2023 LINDA JOHN Attn: Raphael govea,[address] [facility], [place], [address], [place] [facility] 4 09:16:41 Total hysterectom y Active 2023 LINDA JOHN Attn: Raphael govea,[address] [facility], [place], [address], [place] [facility] 4 09:43:48 Abdominal pain 07010020 Active 2023 LINDA JOHN Attn: Raphael govea,[address] [facility], [place], [address], [place] [facility] 4 13:46:31 Dyspnea on exertion 33602444 Active 2023 LINDA JOHN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
--- OUTSIDE RECORDS SUMMARY | 2025-04-12 15:31 | XMS_ITS | Data Portability ---
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 I will see her back after the cervical spine MRI scan. 40 minutes were spent total care this patient more than half the time spent in meha-xd-yyop care. Not available 05/04/2023 13:37:00 Plan of Treatment Reminders Order Date Submit Date Provider Last Modified By Organization Details Last Modified Time Details Appointments None recorded. Lab C-reactive protein, quantitativ e, serum or plasma 2022 023 Not available 3 15:42:52 ESR (erythrocyt e sedimentati on rate), blood 2022 023 [email or web address] Not available 3 15:42:52 rf (rheumatoid factor) + anti-ccp abs, serum 2022 023 [email or web address] Not available 3 15:42:52 KHUSHI (antinuclea r antibodies) screen, serum 2022 023 SANTIAGO Not available 3 23:08:20 CBC w/ auto diff 2022 023 SANTIAGO Not available 3 12:30:35 Referral None recorded. Procedures injection/a spiration joint/bursa (PROC) - in office procedure, administere d by provider 2022 023 In-Office Order, Internal Use Only DO Not Attach Compendium DO Not Attach Compendium, Do Not Delete/merge, [address] 3 10:01:07 Surgeries None recorded. Imaging CT, sinuses, w/o contrast [address] [facility], [address], [place], [address], 5 10:29:26 XR, hand 2022 023 [email or web address] [facility] [place], [address] [facility] [address], [place], [address], 3 13:47:21 Medication Orders mupirocin 2 % topical ointment 2024 025 SANTIAGO [facility] #[id number], [address] [place] [address], [id number], 5 12:07:37 Medrol (Capo) 4 mg tablets in a dose pack 2022 023 [email or web address] [facility] #[id number], [address] [facility] [address] [place] [address], [id number], 5 09:24:27 Kenalog 10 mg/mL suspension for injection 2022 023 [email or web address] [facility] #[id number], [address] [facility] [address] [place] [address], [id number], 3 11:08:39 ropivacaine (PF) 5 mg/mL (0.5 %) injection solution 2022 023 [email or web address] #[id number], [address] [place] [address], [id number], 5 09:32:25 Mobic 15 mg tablet 2022 023 [email or web address] [facility] #[id number], [address] [place] [address], [id number], 3 11:08:43 Patient TargetsNo targets recorded. Patient Instructions Encounter Date Encounter Id Patient Instructions Last Modified By Organization Details Last Modified Time 03/01/2025 [id number] discussed findin g of deviated septum and septal perforation with patient. She will see Dr. Vazquez on to discuss surgical options. She will also have a sinus CT completed to assess for any further sinus involvement. We will follow up when those results become available. [email or web address] Not available 03/01/2025 10:30:57 03/02/2025 [id number] we will treat th e septal ulcer so that a perforation repair will not likely fail. We will also await her sinus CT results [email or web address] Not available 03/02/2025 12:07:09 Reason for Referral None Reported. Results Created Date Observation Date Name Description Value Unit Range Abnormal Flag Note LastModifiedBy Organization Detail LastModifiedTime 02/05/20 XR, hand No observ ation record ed. [facility] [place] [address], [place], [address], 02/04/2023 10:30:52 03/26/20 23 03/26/2023 US, duple x, pelvi s No observ ation record ed. [address], [place], [address], 03/26/2023 15:55:09 03/26/2003/26/2023 US, thyro id No observ ation record ed. [address], [place], [address], 03/26/2023 16:02:37 03/27/20 23 03/26/2023 elect romyo gram + nerve condu ction study No observ ation record ed. [email or web address] [address], [place], [address], 03/31/2023 13:49:07 05/01/20 23 05/01/2023 MRI, cervi mal spine , w/o contr ast No observ ation record ed. [address], [place], [address], 05/04/2023 09:02:04 03/24/20 25 03/14/2025 CT, sinus es, w/o contr ast No observ ation record ed. [email or web address] [facility] [address], [place], [address], 03/28/2025 10:09:55 Result Notes None recorded. Problems Name Problem SNOMED Code Status Onset Date Resolution Date Notes Provider Name and Address Organization Details Recorded Time Serum vitamin B12 below reference range 503040821 Active 2018 Not Available [facility] 3 20:24:19 Mixed anxiety and depressive disorder 585952446 Active 2018 Not Available [facility] 3 20:24:19 Low back pain 618883591 Active 2021 Not Available [facility] 3 20:24:19 Pain of left hip joint 5698512099731 00 Active 2021 Not Available [facility] 3 20:24:19 Trochanter ic bursitis of left hip 8080747101753 03 Active 2021 Not Available [facility] 3 20:24:19 Vitamin D deficiency 87299146 Active 2017 Not Available [facility] 3 20:24:19 Depressive disorder 15528794 Active Not Available [facility] 3 20:24:19 Eczema 01329042 Active 2020 Not Available [facility] 3 20:24:20 Multiple cysts of breast 945897152 Active 2017 Not Available [facility] 3 20:24:20 Pain of bilateral hands 9024566201254 9109 Active 2022 MUU Chavez null, [place] [facility] 3 09:35:30 Cervical radiculopa thy 21528538 Active 2022 Torie Max CMA null, [place] [facility] 3 16:07:58 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 48258640 Active 2022 Torie Max CMA null, [place] [facility] 3 15:24:43 Cervical disc disorder with radiculopa thy 779936045 Active 2022 Torie Max CMA null, [place] [facility] 3 15:25:17 Chronic sinusitis 19732854 Active 2024 MARLENY Garcia [address], [address] , [place] [facility] 5 10:28:50 Perforatio n of nasal septum 05174695 Active 2024 MARLENY Garcia [address], [place], [address] , [facility] 5 10:25:39 Deviated nasal septum 677102664 Active 2024 MARLENY Garcia [address], [address], [place], [address] , [facility] 5 10:29:03 Midline shift of brain 085143706 Active 2024 JANIE Christine, [facility] 5 10:39:36 Sensorineu ral hearing loss of bilateral ears 614507850 Active 2024 JANIE Christine, [facility] 10:11:51 Problem Notes None recorded. Procedures Surgical History Date Name Laterality Status Provider Name and Address Organization Details Recorded Time repair of cleft palate completed Not Available [facility] 12/31/2022 20:23:14 Hip surgery completed Not Available [facility] 12/31/2022 20:23:14 Ear Tubes completed Brandi Jeronimo RN [facility] 03/01/2025 09:27:25 repair of nose completed Brandi Jeronimo RN [facility] 03/01/2025 09:27:41 Imaging Results None recorded. Procedure Notes None recorded. Medical Equipment None Reported. Allergies Allergen ID Allergen Name Allergen Category Reaction Reaction Severity Criticality Documentation Date Start Date Code Code System Note Provider Name and Address Organization Details Recorded Time 70122 Product containin g penicilli n (product) medicatio n Not available Not available Not available 12/31/2022 04444 8001 SNOMED Not Available [facility] 20:26:39 90993 erythromy eulalia medicatio n Not available Not available Not available 12/31/2022 4053 RxNorm Not Available [facility] 20:26:40 Medications Name Sig Start Date Stop [...] suspension for injection in office 04/03 completed NDC: 0003- 0494- 20 Not Available Not Available [...] completed Not Available Not Available Not Available June11/21 () 05/19 completed Not Available Not Available Not Available lidocaine (PF) 5 mg/mL (0.5 %) injection solution Take 20 mg by injection route. 08/20 completed Not Available Not Available Not Available ropivacaine (PF) 5 mg/mL (0.5 %) injection solution in office 03/01 completed [facility] 40470 -064- [phone] Not Available Not Available Not [...] 02/04/2023 152.4 cm UMU Chavez [place] [facility] 02/04/2023 09:34:21 Date Recorded Body weight Body mass index (BMI) Body height Body temperature Provider Name and Address Organization Details Last Updated DateTime 03/01/2025 52341.81 g 25.8 kg/m2 157.48 cm 97.7 [degF] Brandi Jeronimo RN [facility] 03/01/2025 09:32:09 Date Recorded Body height Body mass index (BMI) Body weight Body temperature Provider Name and Address Organization Details Last Updated DateTime 03/02/2025 157.48 cm 25.6 kg/m2 34587.93 g 97.7 [degF] Brandi Jeronimo RN [facility] 03/02/2025 11:41:18 Date Recorded Body height Body mass index (BMI) Body weight Provider Name and Address Organization Details Last Updated DateTime 04/03/2023 157.48 cm 25.6 kg/m2 43234.93 g UMU Chavez [facility] 04/03/2023 11:41:49 Date Recorded Body height Provider Name an d Address Organization Details Last Updated DateTime 08/20/2022 152.4 cm Not Available [facility] 20:23:21 Social History None recorded. Functional Status Question Answer Note LastModified by Organizat ion Details LastModified Time What is your level of alcohol consumption? Occasional [id number] Information not available 12/31/2022 Mental Status None recorded. Family History Relationship Description Onset Age of this Age Resolved Age Notes LastModified by Organization Details LastModified Time Father Family history of stroke [id number] Not available 12/31/2022 20:23:14 Unspecified Relation Family history of malignant neoplasm mom side of the family [id number] Not available 12/31/2022 20:23:14 Unspecified Relation Diabetes mellitus dad side of the family [id number] Not available 12/31/2022 20:23:15 Unspecified Relation Myocardial infarction dad side of the family [id number] Not available 12/31/2022 20:23:15 Notes:BROTHER: NASAL SURGERY [...] HAVE YOU BEEN HOSPITALIZED OR SEEN IN [facility] ER IN THE PAST YEAR ? [...] virus, quadrivalent, preservative 1 completed Not Available [facility] 01/07/2023 11:09:34 Influenza, split virus, quadrivalent, preservative 8 completed Not Available [facility] 01/07/2023 11:09:34 Influenza, split virus, quadrivalent, PF 1 completed Not Available [facility] 01/07/2023 11:09:34 Influenza, split virus, quadrivalent, PF 8 completed Not Available [facility] 01/07/2023 11:09:34 Past Encounters Encounter ID Performer Location Encounter Start Date Encounter Closed Date Diagnosis/Indication Diagnosis SNOMED-CT Code Diagnosis ICD10 Code Diagnosis Note [id number] Tavo Ko MD [facility] [place] [address] [place] [address] 04/04/2022 00:00:00 04/05/2022 13:04:40 [id number] Tavo Ko MD [facility] [place] [address] [place] [address] 05/30/2022 00:00:00 05/30/2022 12:40:58 [id number] Tavo Ko MD [facility] [place] [address] [place] [address] 08/20/2022 00:00:00 08/20/2022 12:29:30 [id number] [facility] [place] [address] [place] [address] 02/04/2023 09:31:02 02/04/2023 13:47:21 Pain of bilateral hands 2552083299 7554130 M79.641 M79.642 [id number] Tavo Ko MD [facility] [place] [address] [place] [address] 04/03/2023 10:53:20 04/06/2023 09:54:36 Pain of bilateral hands 1635864707 6331302 M79.641 M79.975 [id number] MD [facility] [place] [address] [place] [address] 03/01/2025 09:17:38 03/01/2025 10:31:33 Perforation of nasal septum 95135976 J34.89 Chronic sinusitis 726880 00 J32.9 Deviated nasal septum 12 9555260 J34.2 Patient will be seeing Dr. Winter to discuss surgical options [id number] MD [facility] [place] [address] [place] [address] 03/02/2025 11:31:32 03/06/2025 07:08:39 Perforation of nasal septum 73247803 J34.89 Deviated nasal septum 12 0983660 J34.2 Health Concerns Section Related Observation LastModified by Organization Detai ls LastModified Time None Recorded Concern Status LastModified by Organization Details LastModified Time None Recorded Advance Directives Directive None Recorded Payers Encounter Date Sequence Insurance Name Policy Number Policy Ocasio Covered Member ID Ocasio Member ID Guarantor Name 02/04/2023 1 [facility] ON OR AFTER 05/02/21 (MEDICAID REPLACEMENT - HMO) Lenore Medellin [id number] Lenore Medellin 04/03/2023 1 [facility] ON OR AFTER 05/02/21 (MEDICAID REPLACEMENT - HMO) Lenore Medellin [id number] Lenore Medellin 03/01/2025 1 [facility] ON OR AFTER 05/02/21 (MEDICAID REPLACEMENT - HMO) Lenore Medellin [id number] Lenore Medellin 03/02/2025 1 [facility] ON OR AFTER 05/02/21 (MEDICAID REPLACEMENT - HMO) Lenore Medellin [id number] Lenore Medellin Notes Date Note Type Note Provider Name and Address Organization Details Recorded Time 04/03/2023 text/html Patient is a 48-year-old female referred by Dr. Casas for evaluation of her bilateral hand pain and numbness symptoms. She saw Manan Childrekha on 02/04/2023 and I reviewed his note [...] about 10 years ago. Tavo Ko MD [address] [place] [address], [place], [address], [place] [facility] 05/04/2023 13:37:03 03/01/2025 text/html This patient has a past medical history significant for vitamin-D deficiency, depression, eczema, cervical radiculopathy, carpal tunnel syndrome, and cleft lip who presents to the office for complaints of difficulty breathing through her nose that has been present for her entire life. She had notes that her symptoms have begun to worsen in the past 2 weeks with increasing sinus pressure, nasal congestion. She does report intermittent epistaxis episodes. She does report that due to her history of her cleft lip that her left side of her nose has become more narrow and more difficult to breathe. She has not been on any recent antibiotics or steroids. She has used cjxn-hzz-pajojmp nasal decongestants, saline rinses, humidifiers, and heat compresses without symptom relief. She has not had any recent imaging. MARLENY Garcia [address] [facility] [facility] [address], [place], [address], [employer] 03/01/2025 10:31:01 03/02/2025 text/html This patient has a 2 week history of a septal perforation a deviated septum was also identified. She will have her CT scan tomorrow. She has a history of cleft lip and palate repair Jay Winter MD [address] [facility] [address], [place], [address], [employer] 03/02/2025 12:07:33 OBGyn Episode No OBEpisode recorded.
== END 2025-04-12 13:20 | disposition home or self-care (01) ==
LOC: ANHIMG 13:22
PROVIDERS: PCP Physician Assistant; Visit Provider Otolaryngology
DX: R90.89 Other abnormal findings on diagnostic imaging of central nervous system (principal)
CPT/HCPCS: 70470; Q9967

== ENCOUNTER 2025-06-23 08:59 | Outpatient (CLI) | payer OTHER, SELFPAY ==
--- NOTE | ~2025-06-23 | MR_ITS ---
Clinical history:Spinal stenosis, cervical region EXAM:MRI cervical spine without contrast TECHNIQUE:Multiplanar, multisequence images were obtained of the cervical spine without contrast. Comparisons:None available at this time FINDINGS: Straightening of the normal cervical lordosis. Bone mineralization is within normal limits. Grade 1 retrolisthesis of C5 on C6. Predental space is within normal limits. No prevertebral soft tissue swelling. No abnormal signal within the spinal cord. Partial opacification of the paranasal sinuses and mastoid air cells. At the C2-C3 level, no significant narrowing of the spinal canal and bilateral neural foramen. At the C3-C4 level, there is a small broad-based disc bulge, eccentric the left causing mild narrowing of the spinal canal, mild narrowing of the left lateral recess and mild narrowing of the left neural foramen. No narrowing of the right neural foramen. At the C4-C5 level, there is a small broad-based disc bulge causing mild narrowing of the spinal canal, mild narrowing of the lateral recesses and mild narrowing of the bilateral neural foramen. At the C5-C6 level, there is a small to moderate-sized broad-based disc bulge with degenerative change in the facet joints and uncovertebral joints. Mild to moderate narrowing of the spinal canal. Moderate narrowing of the bilateral lateral recesses. Moderate narrowing of the bilateral neural foramen. At the C6-C7 level, there is a small to moderate-sized broad-based disc bulge with degenerative change in the facet joints and uncovertebral joints. Annular fissure in the intervertebral disc at the C6-C7 level. Mild to moderate narrowing of the spinal canal. Moderate narrowing of the left lateral recess and left neural foramen. Mild narrowing of the right lateral recess and right neural foramen. At the C7-T1 level, no significant narrowing of the spinal canal or bilateral neural foramen. IMPRESSION: 1. Straightening of the normal cervical lordosis. 2. Multilevel discogenic and degenerative change in the cervical spine most prominent at the C5-C6 and C6-C7 levels as detailed above. 3. Grade 1 retrolisthesis of C5 on C6. Reviewed, dictated and finalized at location [facility]. IMPRESSION: 1. Straightening of the normal cervical lordosis. 2. Multilevel discogenic and degenerative change in the cervical spine most pro minent at the C5-C6 and C6-C7 levels as detailed above. 3. Grade 1 retrolisthesis of C5 on C6.
== END 2025-06-23 09:00 | disposition home or self-care (01) ==
LOC: ANHIMG 09:01
PROVIDERS: PCP Physician Assistant; Visit Provider Neurological Surgery
DX: M48.02 Spinal stenosis, cervical region (principal); M40.50 Lordosis, unspecified, site unspecified; M47.812 Spondylosis without myelopathy or radiculopathy, cervical region; M43.12 Spondylolisthesis, cervical region
CPT/HCPCS: 72141